=== PATIENT | female | born 1980 | race Two or more races ===

== ENCOUNTER 2016-05-16 07:56 | Emergency (ER) | payer OTHER ==
[2016-05-16 08:07] VITALS: BP 120/64; PULSE 76; TEMP 97; BMI 23.4
[2016-05-16] MEDS ORDERED: NAPROXEN 500 MG TABLET (FP) PO ONE (08:10)
[2016-05-16] MEDS ORDERED: diazePAM 5 MG TABLET PO ONE (08:10)
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
[2016-05-16] MEDS ORDERED: NAPROXEN 500 MG TABLET (FP) ONE (08:15)
[2016-05-16] MEDS ORDERED: diazePAM 5 MG TABLET ONE (08:16)
== END 2016-05-16 09:31 | disposition home or self-care (01) ==
LOC: JER 07:56
DX: M54.5 Low back pain (principal); V43.52XA Car driver injured in collision with other type car in traffic accident, initial encounter; Y93.89 Activity, other specified; Y92.410 Unspecified street and highway as the place of occurrence of the external cause; Y99.0 Civilian activity done for income or pay
CPT/HCPCS: 99281-25

== ENCOUNTER 2016-07-04 16:21 | Emergency (ER) | payer OTHER ==
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
[2016-07-04 16:30] VITALS: BP 111/79; PULSE 93; TEMP 97.8; BMI 23.4
[2016-07-04 17:53] LABS: URINE APPEARANCE CLEAR; URINE BILIRUBIN NEGATIVE (NEGATIVE); URINE BLOOD NEGATIVE (NEGATIVE); URINE COLOR YELLOW; URINE GLUCOSE (UA) NEGATIVE (NEGATIVE); URINE KETONE TRACE (NEGATIVE); URINE LEUK ESTERASE NEGATIVE (NEGATIVE); URINE NITRITE NEGATIVE (NEGATIVE); URINE UROBILINOGEN NEGATIVE E.U./dl (0.2-1.0)
[2016-07-04 18:00] LABS: URINE PROTEIN 1+ (NEGATIVE)
[2016-07-04 18:01] LABS: URINE BACTERIA RARE /hpf (NONE SEEN); URINE MUCUS MANY; URINE RBC 5 /hpf (0-3); URINE WBC 2 /hpf (3-5)
[2016-07-04] MEDS ORDERED: KETOROLAC TROMETHAMINE 60 MG/2 ML VIAL IM ONE (18:17)
--- NOTE | 2016-07-04 18:20 | PDOC ---
History of Present Illness - General Chief Complaint: Migraine Headache Stated Complaint: MIGRAIN HEADACHE Time Seen by Provider: 07/04/16 16:24 History Source: Patient Exam Limitations: No Limitations - History of Present Illness Initial Comments: 07/04/16 18:15 Patient is here with complaints of right-sided headache pain. was diagnosed with migraine some years ago, but has not seen her migraine doctor for over a year. generally uses ibuprofen for pain relief but this has not resolved this pain. Denies fever, denies visual changes although has photophobia. No nausea or vomiting, no neurologic changes or weakness. is a before school and pain onset was approximately 3 days ago it is a wraparound type headache primarily on the right side. Severity: Yes: moderate Associated Symptoms: reports: fatigue, muscle spasms. denies: fever/chills, insomnia, loss of consciousness, nausea/vomiting, numbness in legs/feet Past History - Travel Traveled outside of the country in the last 30 days: No Close contact w/someone who was outside of country & ill: No - Past Medical History Allergies/Adverse Reactions: Allergies Allergy/AdvReac Type Severity Reaction Status Date / Time No Known Allergies Allergy Verified 07/04/16 16:25 Home Medications: Ambulatory Orders Cyclobenzaprine HCl [Flexeril 10 mg] 10 mg PO BID PRN #14 tablet MDD 3 07/04/16 Suicide Attempt (Hx): No Seizures: Yes (childhood epilepsy) - Surgical History Abdominal Surgery: Yes (tummy tuck) Cholecystectomy: Yes - Psycho/Social/Smoking Cessation Hx Anxiety: No Suicidal Ideation: No Smoking Status: No Smoking History: Never smoked Have you smoked in the past 12 months: No Number of Cigarettes Smoked Daily: 0 Hx Alcohol Use: No Drug/Substance Use Hx: No Substance Use Type: None Neuro Specific PMHX - Complaint Specific PMHX Migraine: Yes Review of Systems - Review of Systems Able to Perform ROS?: Yes Is the patient limited Turkish proficient: Yes Constitutional: Yes: Symptoms Reported, See HPI, Loss of Appetite, Malaise, Weakness. No: Fever HEENTM: Yes: See HPI. No: Symptoms Reported, Eye Pain, Blurred Vision Respiratory: No: Symptoms reported Cardiac (ROS): No: Symptoms Reported Musculoskeletal: Yes: Symptoms Reported, See HPI, Neck Pain Integumentary: No: Symptoms Reported Neurological: Yes: Symptoms reported, See HPI, Headache. No: Numbness, Paresthesia, Tingling, Unsteady Gait All Other Systems: Reviewed and Negative *Physical Exam - Vital Signs Last Vital Signs Temp Pulse Resp BP Pulse Ox 97.8 F 93 H 18 111/79 100 07/04/16 16:26 07/04/16 16:26 07/04/16 16:26 07/04/16 16:26 07/04/16 16:26 - Physical Exam General Appearance: Yes: Nourished, Appropriately Dressed, Apparent Distress, Mild Distress, Moderate Distress HEENT: positive: NICHELLE, Normal ENT Inspection, TMs Normal, Pharynx Normal. negative: Nasal Congestion Neck: positive: Tender, Supple. negative: Lymphadenopathy (R), Lymphadenopathy (L) Respiratory/Chest: positive: Lungs Clear, Normal Breath Sounds Gastrointestinal/Abdominal: positive: Soft. negative: Normal Bowel Sounds, Tender Musculoskeletal: positive: Muscle Spasm (palpable spasm along the sternocleidomastoid muscles of the right side of neck, with reproduced tenderness and pain along scalp with pressure at occiput. Patient also has upper trapezius pain and mild spasm palpable.) Extremity: positive: Normal Capillary Refill, Normal Inspection, Normal Range of Motion Integumentary: positive: Normal Color, Dry, Warm Neurologic: positive: musculoskeletal physiotherapist II-XII NML intact, Fully Oriented, Alert, Normal Mood/ Affect, Normal Response, Motor Strength 5/5 ED Treatment Course - ADDITIONAL ORDERS Additional order review: Laboratory Results 07/04/16 17:40 Urine Color Yellow Urine Appearance Clear Urine pH 5.0 Ur Specific [place] 1.029 Urine Protein 1+ H Urine Glucose (UA) Negative Urine Ketones Trace H Urine Blood Negative Urine Nitrite Negative Urine Bilirubin Negative Urine Urobilinogen Negative Ur Leukocyte Esterase Negative Urine HCG, Qual Negative Progress Note - Progress Note Progress Note: Tension headache, pain is reproduced with palpation of the sternocleidomastoid on the right side with his insertions at occiput with tenderness at the upper trapezius musculature with spasm palpated. Will treat with NSAIDs and cyclobenzaprine, have patient follow-up with her PMD for possible physical therapy as needed *DC/Admit/Observation/Transfer Diagnosis at time of Disposition: Tension headache - Discharge Dispostion Disposition: HOME Condition at time of disposition: Stable Admit: No - Patient Instructions Printed Discharge Instructions: DI for Hormonal and Tension Headaches Additional Instructions: Rest, no heavy lifting or exercise until pain is resolved Hot soaks to neck and low back as often as possible/hot showers or Jacuzzis No massage or therapy until spasm is gone Continue ibuprofen 2-200 mg tablets every 6 hours for the next 3 days then as needed for pain and swelling Cyclobenzaprine 1-10mg every 8 hours as needed for spasm If not significant improvement within 24 hours with medication and rest regime, followup with private physician for change in medications and /or therapy. - Post Discharge Activity Work/School Note: Back to Work
[2016-07-04] MEDS ORDERED: KETOROLAC TROMETHAMINE 30 MG/1 ML VIAL ONE (18:24)
== END 2016-07-04 18:31 | disposition home or self-care (01) ==
LOC: JER 16:21 → JERFT 16:21
PROC: 3E0233Z Introduction of Anti-inflammatory into Muscle, Percutaneous Approach (ICD-10-PCS; principal; 2016-07-04)
DX: G44.209 Tension-type headache, unspecified, not intractable (principal)
CPT/HCPCS: 81003; 81015; 84703; 99281-25

== ENCOUNTER 2016-07-06 07:17 | Emergency (ER) | payer OTHER ==
[2016-07-06 07:31] VITALS: BMI 23.6
--- NOTE | 2016-07-06 08:18 | PDOC ---
[id number] No Limitations - History of Present Illness Initial Comments: 07/06/16 09:09 The patient is a 35 year old female with no significant past medical history who presents to the ED with complaints of a headache for 3 days. The patient was recently seen in the ED 2 days ago for similar symptoms and notes her symptoms have not gotten better. She reports a diffuse frontal headache radiating to the back of her head with associated loss of vision. Patient denies a history of vision problems in the past. Patient also reports nausea, generalized weakness and staying in bed all day secondary to head pain. Patient states she took motrin at home with no relief. Patient denies getting a head CT in the past. Patient denies vomiting or abdominal pain. Patient denies chest pain or shortness of breath. Patient denies any other symptoms in the past. <Galileo Clemons - Last Filed: 07/06/16 11:42> <Bria Amador - Last Filed: 07/10/16 07:54> - General Chief Complaint: Headache Stated Complaint: HEAD ACHE/ NAUSAU Time Seen by Provider: 07/06/16 07:58 Past History <Galileo Clemons - Last Filed: 07/06/16 11:42> - Past Medical History Suicide Attempt (Hx): No Seizures: Yes (childhood epilepsy) Other medical history: migraines - Surgical History Abdominal Surgery: Yes (johnny jhaveri) Cholecystectomy: Yes - Psycho/Social/Smoking Cessation Hx Anxiety: No Suicidal Ideation: No Smoking Status: No Smoking History: Never smoked Have you smoked in the past 12 months: No Number of Cigarettes Smoked Daily: 0 Information on smoking cessation initiated: No Hx Alcohol Use: No Drug/Substance Use Hx: No Substance Use Type: None <Bria Amador - Last Filed: 07/10/16 07:54> - Past Medical History Allergies/Adverse Reactions: Allergies Allergy/AdvReac Type Severity Reaction Status Date / Time No Known Allergies Allergy Verified 07/06/16 07:25 Home Medications: Ambulatory Orders Cyclobenzaprine HCl [Flexeril 10 mg] 10 mg PO BID PRN #14 tablet MDD 3 07/04/16 Review of Systems - Review of Systems Able to Perform ROS?: Yes Comments:: 07/06/16 09:09 GENERAL/CONSTITUTIONAL: No fever or chills. No weakness. HEAD, EYES, EARS, NOSE AND THROAT: No ear pain or discharge. No sore throat. CARDIOVASCULAR: No chest pain or shortness of breath. RESPIRATORY: No cough, wheezing, or hemoptysis. GASTROINTESTINAL: No nausea, vomiting, diarrhea or constipation. GENITOURINARY: No dysuria, frequency, or change in urination. MUSCULOSKELETAL: No joint or muscle swelling or pain. No neck or back pain. SKIN: No rash NEUROLOGIC: + headache, vision changes. No vertigo, loss of consciousness, or change in strength/sensation. ENDOCRINE: No increased thirst. No abnormal weight change. HEMATOLOGIC/LYMPHATIC: No anemia, easy bleeding, or history of blood clots. ALLERGIC/IMMUNOLOGIC: No hives or skin allergy. All Other Systems: Reviewed and Negative <Galileo Clemons - Last Filed: 07/06/16 11:42> *Physical Exam - Vital Signs Last Vital Signs Temp Pulse Resp BP Pulse Ox 97.9 F 82 18 113/74 100 07/06/16 07:27 07/06/16 07:27 07/06/16 07:27 07/06/16 07:27 07/06/16 07:27 - Physical Exam Comments: 07/06/16 09:10 GENERAL:+ uncomfortable appearing. Awake, alert, and fully oriented HEAD: No signs of trauma EYES: PERRLA, EOMI, sclera anicteric, conjunctiva clear ENT: Auricles normal inspection, hearing grossly normal, nares patent, oropharynx clear without exudates. Moist mucosa NECK: Normal ROM, supple, no lymphadenopathy, JVD, or masses LUNGS: Breath sounds equal, clear to auscultation bilaterally. No wheezes, and no crackles HEART: Regular rate and rhythm, normal S1 and S2, no murmurs, rubs or gallops ABDOMEN: Soft, nontender, normoactive bowel sounds. No guarding, no rebound. No masses EXTREMITIES: Normal range of motion, no edema. No clubbing or cyanosis. No cords, erythema, or tenderness NEUROLOGICAL: Cranial nerves II through XII grossly intact. Normal speech, normal gait SKIN: Warm, Dry, normal turgor, no rashes or lesions noted. <Galileo Clemons - Last Filed: 07/06/16 11:42> - Vital Signs Last Vital Signs Temp Pulse Resp BP Pulse Ox 97.9 F 82 18 113/74 100 07/06/16 07:27 07/06/16 07:27 07/06/16 07:27 07/06/16 07:27 07/06/16 07:27 <Bria Amaodr - Last Filed: 07/10/16 07:54> ED Treatment Course - LABORATORY CBC & Chemistry Diagram: 07/06/16 09:36 07/06/16 09:36 - RADIOLOGY Radiograph Interpretation: 07/06/16 11:42 CT/HEAD CT WITHOUT CONTRAST Impression: no evidence of acute intracranial hemorrhage, edema, midline shift, mass effect, or skull fracture. No CT evidence of acute territorial infarction. Reported by: Jeremiah De La Paz MD <Galileo Clemons - Last Filed: 07/06/16 11:42> - LABORATORY CBC & Chemistry Diagram: 07/06/16 09:36 07/06/16 09:36 <Bria Amador - Last Filed: 07/10/16 07:54> Medical Decision Making - Medical Decision Making 07/06/16 11:47 Pt reports some improvement, but headache is not completely resolved. CTH no acute findings. Will give decadron for status migraine. 07/06/16 12:57 Pt states her pain is relieved, feeling much better. Neurologically intact. Stable for DC home. <Bria Amador - Last Filed: 07/10/16 07:54> *DC/Admit/Observation/Transfer - Attestations Scribe Attestion: 07/06/16 09:10 Documentation prepared by Galileo Clemons, acting as medical device sales representative for Bria Amador MD <Galileo Clemons - Last Filed: 07/06/16 11:42> - Discharge Dispostion Admit: No <Bria Amador - Last Filed: 07/10/16 07:54> Diagnosis at time of Disposition: Headache Qualifiers: Headache type: unspecified Headache chronicity pattern: unspecified pattern Intractability: not intractable Qualified Code(s): R51 - Headache - Discharge Dispostion Disposition: HOME Condition at time of disposition: Improved - Referrals Referrals: STAFF,NOT ON [Primary Care Provider] - - Patient Instructions Printed Discharge Instructions: DI for Migraine
[2016-07-06] MEDS ORDERED: SODIUM CHLORIDE 1,000 ML IV STA (09:03)
[2016-07-06] MEDS ORDERED: KETOROLAC TROMETHAMINE 30 MG/1 ML VIAL IVPUSH ONE (09:03)
[2016-07-06] MEDS ORDERED: METOCLOPRAMIDE HCL INJECTION 10 MG/2 ML VIAL IVPB ONE (09:03)
[2016-07-06] MEDS ORDERED: METOCLOPRAMIDE HCL INJECTION 10 MG/2 ML VIAL ONE (09:18)
[2016-07-06] MEDS ORDERED: KETOROLAC TROMETHAMINE 30 MG/1 ML VIAL ONE (09:19)
[2016-07-06 09:43] LABS: BASOPHIL 1.3 % (0-2.0); EOSINOPHIL 2.2 % (0-4.5); MCHC 32.7 g/dl (32.0-36.0); MEAN CELL VOLUME 85.7 fl (80-96); MEAN PLT VOLUME 8.4 fl (7.5-11.1); NEUTROPHILS 65.7 % (42.8-82.8); PLATELET COUNT 246 K/MM3 (134-434); RDW 16.7 % (11.6-15.6); WHITE BLOOD COUNT 5.3 K/mm3 (4.0-10.0)
[2016-07-06 10:19] LABS: ALBUMIN 4.2 g/dl (3.4-5.0); ANION GAP 9 (8-16); BILIRUBIN,TOTAL 0.4 mg/dL (0.2-1.0); CALCIUM 8.7 mg/dL (8.5-10.1); CO2 27 mmol/L (21-32); CREATININE 0.7 mg/dL (0.55-1.02); GLUCOSE,RANDOM 79 mg/dL (74-106); SGPT/ALT 18 U/L (12-78); TOT PROT 7.8 g/dl (6.4-8.2)
[2016-07-06 10:20] LABS: ALK PHOS 77 U/L (45-117)
[2016-07-06 10:26] LABS: SGOT/AST 16 U/L (15-37)
[2016-07-06] MEDS ORDERED: DEXAMETHASONE SOD PHOSPHATE 10 MG/1 ML VIAL IVPB ONE (11:47)
[2016-07-06] MEDS ORDERED: DEXAMETHASONE SOD PHOSPHATE 10 MG/1 ML VIAL ONE (12:15)
[2016-07-06 13:31] VITALS: BP 112/67; PULSE 69; TEMP 97.9
== END 2016-07-06 13:31 | disposition home or self-care (01) ==
LOC: JER 07:17
PROC: 3E033GC Introduction of Other Therapeutic Substance into Peripheral Vein, Percutaneous Approach (ICD-10-PCS; principal; 2016-07-06)
PROC: 3E0333Z Introduction of Anti-inflammatory into Peripheral Vein, Percutaneous Approach (ICD-10-PCS; 2016-07-06)
PROC: 3E0337Z Introduction of Electrolytic and Water Balance Substance into Peripheral Vein, Percutaneous Approach (ICD-10-PCS; 2016-07-06)
DX: R51 Headache (principal)
CPT/HCPCS: 36415; 70450-TC; 80053; 84703; 85025; 99282-25

== ENCOUNTER 2016-10-03 13:40 | Emergency (ER) | payer OTHER ==
[2016-10-03 14:43] VITALS: BMI 25.5
--- NOTE | 2016-10-03 15:09 | PDOC ---
History of Present Illness - General History Source: Patient Exam Limitations: No Limitations - History of Present Illness Initial Comments: CHIEF COMPLAINT: 36 y/o afebrile female with PMH epilepsy (last episode 20 years ago) c/o right sided head pain x 2 weeks. HISTORY OF PRESENT ILLNESS: The patient also admits to blurred, painful vision in right eye, along with seeing spots in right eye for the past 1 week as well. She states the eye pain is intermittent and lasts 3-4 minutes at a time. She also admits to nausea and dizziness that is exacerbated by sunlight. THe patient denies head trauma, neck pain, f/c, v/d, CP, SOB, abd pain, back pain. Vital signs on arrival are within normal limits. REVIEW OF SYSTEMS: GENERAL/CONSTITUTIONAL: No fever/chills. No weakness. No weight change. HEAD, EYES, EARS, NOSE AND THROAT: +blurry, painful vision in right eye and seeing spots. No ear pain or discharge. No sore throat. CARDIOVASCULAR: No chest pain or shortness of breath. RESPIRATORY: No cough, wheezing, or hemoptysis. GASTROINTESTINAL: +nausea. No abd pain, vomiting, diarrhea. GENITOURINARY: No dysuria, frequency, or change in urination. MUSCULOSKELETAL: No joint or muscle swelling or pain. No neck or back pain. SKIN: No rash or easy bruising. NEUROLOGIC: +right sided head pain. +dizziness. No headache, vertigo, loss of consciousness, or loss of sensation. PHYSICAL EXAM: GENERAL: The patient is awake, alert, and fully oriented, in no acute distress. HEAD: Normal with no signs of trauma. No hematomas. ENT: Pupils equal, round and reactive to light, extraocular movements intact, sclera anicteric, conjunctiva clear. Neck supple. LUNGS: Clear to auscultation bilaterally. Normal excursion. No respiratory distress or use of accessory muscles. CV: RRR, S1/S2, no MRG. Cap refill < 2 sec. ABDOMEN: Soft, non-distended, non-tender even to deep palpation, no hepatomegaly or splenomegaly, no masses. EXTREMITIES: Normal range of motion, no edema. NEUROLOGICAL: Normal speech, normal gait. CN II-XII grossly intact. PSYCH: Normal mood, normal affect. SKIN: Warm, dry, normal turgor, no rashes or lesions noted. <Wohltman,Mago - Last Filed: 10/03/16 18:58> <Marlena Jones - Last Filed: 10/03/16 19:50> - General Chief Complaint: Pain Stated Complaint: RT SIDE HEAD PAIN Time Seen by Provider: 10/03/16 15:08 Past History - Past Medical History Suicide Attempt (Hx): No Seizures: Yes (childhood epilepsy) - Surgical History Abdominal Surgery: Yes (tummy tuck) Cholecystectomy: Yes - Psycho/Social/Smoking Cessation Hx Anxiety: No Suicidal Ideation: No Smoking Status: No Smoking History: Never smoked Have you smoked in the past 12 months: No Number of Cigarettes Smoked Daily: 0 Hx Alcohol Use: No Drug/Substance Use Hx: No Substance Use Type: None <Mago Mcgovern - Last Filed: 10/03/16 18:58> <Marlena Jones - Last Filed: 10/03/16 19:50> - Past Medical History Allergies/Adverse Reactions: Allergies Allergy/AdvReac Type Severity Reaction Status Date / Time No Known Allergies Allergy Verified 10/03/16 13:50 Home Medications: Ambulatory Orders NK [No Known Home Medication] 10/03/16 *Physical Exam - Vital Signs Last Vital Signs Temp Pulse Resp BP Pulse Ox 98.5 F 73 20 115/72 100 10/03/16 13:48 10/03/16 13:48 10/03/16 13:48 10/03/16 13:48 10/03/16 13:48 <Mago Mcgovern - Last Filed: 10/03/16 18:58> - Vital Signs Last Vital Signs Temp Pulse Resp BP Pulse Ox 98.6 F 68 17 127/73 98 10/03/16 18:08 10/03/16 18:08 10/03/16 18:08 10/03/16 18:08 10/03/16 18:08 <Marlena Jones - Last Filed: 10/03/16 19:50> ED Treatment Course - LABORATORY CBC & Chemistry Diagram: 10/03/16 16:40 10/03/16 16:40 <Mago Mcgovern - Last Filed: 10/03/16 18:58> - LABORATORY CBC & Chemistry Diagram: 10/03/16 16:40 10/03/16 18:00 - ADDITIONAL ORDERS Additional order review: Laboratory Results 10/03/16 10/03/16 16:40 16:31 Sodium Cancelled Potassium Cancelled Chloride Cancelled Carbon Dioxide Cancelled Anion Gap Cancelled BUN Cancelled Creatinine Cancelled Creat Clearance w eGFR Cancelled Random Glucose Cancelled Calcium Cancelled Total Bilirubin Cancelled AST Cancelled ALT Cancelled Alkaline Phosphatase Cancelled Total Protein Cancelled Albumin Cancelled Urine HCG, Qual Negative 10/03/16 16:40 RBC 4.63 MCV 82.6 MCHC 32.5 RDW 17.1 H MPV 8.5 Neutrophils % 61.3 Lymphocytes % 27.0 D Monocytes % 8.8 Eosinophils % 1.9 Basophils % 1.0 - RADIOLOGY Radiology Studies Ordered: Category Date Time Status HEAD CT WITHOUT CONTRAST [CT] Stat CT Scan 10/03/16 16:21 Completed - Medications Given in the ED: ED Medications Discontinued Medications Generic Name Dose Route Start Last Admin Trade Name Richmondq PRN Reason Stop Dose Admin Ketorolac Tromethamine 30 mg 10/03/16 18:13 10/03/16 18:23 Toradol Injection - IVPUSH 10/03/16 18:14 30 mg ONCE ONE Administration Metoclopramide HCl 10 mg 10/03/16 18:12 10/03/16 18:23 Reglan Injection - IVPB 10/03/16 18:13 10 mg ONCE ONE Administration Sodium Chloride 1,000 ml 10/03/16 18:12 10/03/16 18:23 Normal Saline - IV 10/03/16 18:13 1,000 ml ONCE ONE Administration <Marlena Jones - Last Filed: 10/03/16 19:50> Medical Decision Making - Medical Decision Making A/P: 36 y/o female with right sided head pain, blurry/painful vision, nausea and dizziness for 2 weeks. The patient will be sent to the main ER for higher level of care. <Mago Mcgovern - Last Filed: 10/03/16 18:58> *DC/Admit/Observation/Transfer <Mago Mcgovern - Last Filed: 10/03/16 18:58> - Discharge Dispostion Admit: No <Marlena Jones - Last Filed: 10/03/16 19:50> Diagnosis at time of Disposition: Blurry vision, right eye, Intractable persistent migraine aura - Discharge Dispostion Disposition: HOME Condition at time of disposition: Stable - Referrals Referrals: Arnol Edgar MD [Staff Physician] - - Patient Instructions Printed Discharge Instructions: Migraine -- Adult Additional Instructions: take ibuprofen 600 mg every 8 hours as needed for pain. return for vomiting, fever worsening pain or any concerns.follow up with nuerology, see referral number for Dr. Edgar. Print Language: AUSTRIAN - Post Discharge Activity Work/School Note: Back to Work
[2016-10-03 16:51] LABS: EOSINOPHIL 1.9 % (0-4.5); MCH 26.8 pg (25.7-33.7); MCHC 32.5 g/dl (32.0-36.0); MEAN CELL VOLUME 82.6 fl (80-96); MEAN PLT VOLUME 8.5 fl (7.5-11.1); NEUTROPHILS 61.3 % (42.8-82.8); PLATELET COUNT 288 K/MM3 (134-434); RDW 17.1 % (11.6-15.6); WHITE BLOOD COUNT 5.9 K/mm3 (4.0-10.0)
[2016-10-03] MEDS ORDERED: METOCLOPRAMIDE HCL INJECTION 10 MG/2 ML VIAL IVPB ONE (18:12)
[2016-10-03] MEDS ORDERED: SODIUM CHLORIDE 0.9% 1000 ML INFUS.BAG IV ONE (18:12)
[2016-10-03] MEDS ORDERED: KETOROLAC TROMETHAMINE 30 MG/1 ML VIAL IVPUSH ONE (18:13)
[2016-10-03] MEDS ORDERED: METOCLOPRAMIDE HCL INJECTION 10 MG/2 ML VIAL ONE (18:16)
[2016-10-03] MEDS ORDERED: KETOROLAC TROMETHAMINE 30 MG/1 ML VIAL ONE (18:16)
--- NOTE | 2016-10-03 18:46 | PDOC ---
*Physical Exam - Vital Signs Last Vital Signs Temp Pulse Resp BP Pulse Ox 98.6 F 68 17 127/73 98 10/03/16 18:08 10/03/16 18:08 10/03/16 18:08 10/03/16 18:08 10/03/16 18:08 - Physical Exam General Appearance: Yes: Nourished, Appropriately Dressed HEENT: positive: NICHELLE, Normal ENT Inspection, Normal Voice Neck: positive: Trachea midline, Normal Thyroid Respiratory/Chest: positive: Lungs Clear, Normal Breath Sounds Cardiovascular: positive: Regular Rhythm, Regular Rate, S1, S2. negative: Edema , JVD Musculoskeletal: positive: Normal Inspection. 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 NML intact, Fully Oriented, Alert, Normal Mood/ Affect, Normal Response (no temporal artery tenderness.), Motor Strength 5/5 ED Treatment Course - LABORATORY CBC & Chemistry Diagram: 10/03/16 16:40 10/03/16 18:00 - ADDITIONAL ORDERS Additional order review: Laboratory Results 10/03/16 10/03/16 16:40 16:31 Sodium Cancelled Potassium Cancelled Chloride Cancelled Carbon Dioxide Cancelled Anion Gap Cancelled BUN Cancelled Creatinine Cancelled Creat Clearance w eGFR Cancelled Random Glucose Cancelled Calcium Cancelled Total Bilirubin Cancelled AST Cancelled ALT Cancelled Alkaline Phosphatase Cancelled Total Protein Cancelled Albumin Cancelled Urine HCG, Qual Negative 10/03/16 16:40 RBC 4.63 MCV 82.6 MCHC 32.5 RDW 17.1 H MPV 8.5 Neutrophils % 61.3 Lymphocytes % 27.0 D Monocytes % 8.8 Eosinophils % 1.9 Basophils % 1.0 - RADIOLOGY Radiology Studies Ordered: Category Date Time Status HEAD CT WITHOUT CONTRAST [CT] Stat CT Scan 10/03/16 16:21 Completed - Medications Given in the ED: ED Medications Discontinued Medications Generic Name Dose Route Start Last Admin Trade Name Freq PRN Reason Stop Dose Admin Ketorolac Tromethamine 30 mg 10/03/16 18:13 10/03/16 18:23 Toradol Injection - IVPUSH 10/03/16 18:14 30 mg ONCE ONE Administration Metoclopramide HCl 10 mg 10/03/16 18:12 10/03/16 18:23 Reglan Injection - IVPB 10/03/16 18:13 10 mg ONCE ONE Administration Sodium Chloride 1,000 ml 10/03/16 18:12 10/03/16 18:23 Normal Saline - IV 10/03/16 18:13 1,000 ml ONCE ONE Administration Medical Decision Making - Medical Decision Making 10/03/16 18:40 36 yo F h/o migraines, here today with c/o right sided headache, periorbital pain. off and on for one week. has had similar pain in the past, but on the other side.did have some nausea, no vomiting. no mod factors. did not take any medicine prior to arrival. . does have photophobia, no head trauma. no fever. no new weakness numbness or tingling. on exam awake alert, no temp art tenderness. cardiac and lung exam normal. abd soft. nuero exam CN intact, 5/5 all four ext. speech clear. differential: likely migraine. plan labs r/o anemia electrolyte abnormality. hydrate pain control 10/03/16 19:49 pt feeling better labs and ct normal. will dc home. *DC/Admit/Observation/Transfer Diagnosis at time of Disposition: Blurry vision, right eye - Discharge Dispostion Condition at time of disposition: Stable - Referrals Referrals: Arnol Edgar MD [Staff Physician] - - Patient Instructions Printed Discharge Instructions: Migraine -- Adult Additional Instructions: take ibuprofen 600 mg every 8 hours as needed for pain. return for vomiting, fever worsening pain or any concerns.follow up with nuerology, see referral number for Dr. Edgar. Print Language: SWEDISH - Post Discharge Activity
[2016-10-03 18:49] LABS: ERYTHROCYTE SEDIMENTATION RATE 15 mm/hr (0-20)
[2016-10-03 19:27] LABS: ALBUMIN 4.2 g/dl (3.4-5.0); ALK PHOS 80 U/L (45-117); ANION GAP 11 (8-16); BILIRUBIN,TOTAL 0.6 mg/dL (0.2-1.0); CALCIUM 8.8 mg/dL (8.5-10.1); CO2 23 mmol/L (21-32); COCKROFT - GAULT 134.9375; CREATININE 0.7 mg/dL (0.55-1.02); GLUCOSE,RANDOM 73 mg/dL (74-106); SGOT/AST 19 U/L (15-37); SGPT/ALT 18 U/L (12-78); TOT PROT 7.9 g/dl (6.4-8.2)
[2016-10-03 20:15] LABS: PLATELET ESTIMATE ADEQUATE (NORMAL)
[2016-10-03 20:16] VITALS: BP 108/78; PULSE 86; TEMP 98.3
== END 2016-10-03 20:16 | disposition home or self-care (01) ==
LOC: JER 13:40
PROC: 3E0333Z Introduction of Anti-inflammatory into Peripheral Vein, Percutaneous Approach (ICD-10-PCS; principal; 2016-10-03)
PROC: 3E033GC Introduction of Other Therapeutic Substance into Peripheral Vein, Percutaneous Approach (ICD-10-PCS; 2016-10-03)
DX: G43.119 Migraine with aura, intractable, without status migrainosus (principal); Z86.69 Personal history of other diseases of the nervous system and sense organs
CPT/HCPCS: 36415; 70450-TC; 80053; 84703; 85025; 85651; 99282-25

== ENCOUNTER 2017-01-03 03:34 | Emergency (ER) | payer OTHER ==
[2017-01-03] MEDS ORDERED: KETOROLAC TROMETHAMINE 30 MG/1 ML VIAL IVPUSH ONE (04:05)
[2017-01-03] MEDS ORDERED: SODIUM CHLORIDE 0.9% 1000 ML INFUS.BAG IV ONE (04:06)
[2017-01-03] MEDS ORDERED: METOCLOPRAMIDE HCL INJECTION 10 MG/2 ML VIAL IVPUSH ONE (04:06)
[2017-01-03 04:13] VITALS: BP 115/77; PULSE 81; TEMP 97.7; BMI 23.6
[2017-01-03] MEDS ORDERED: METOCLOPRAMIDE HCL INJECTION 10 MG/2 ML VIAL ONE (04:13)
[2017-01-03] MEDS ORDERED: KETOROLAC TROMETHAMINE 30 MG/1 ML VIAL ONE (04:14)
--- NOTE | 2017-01-03 04:27 | PDOC ---
History of Present Illness - General Chief Complaint: Palpitations Stated Complaint: ALLERGIC REACTION,HEART PALPITATIONS Time Seen by Provider: 01/03/17 03:47 - History of Present Illness Initial Comments: 01/03/17 04:27 CHIEF COMPLAINT: headache, palpitations HISTORY OF PRESENT ILLNESS: 36 yo F with hx of recurrent headaches presents to ED with headache and palpitations. Patient reports she had a headache and took a Percocet, but then began feeling palpitations and "sharp pain" to her chest. She denies any shortness of breath, blurry vision, weakness, difficulty speaking or swallowing, and friend at bedside reports she is acting at baseline. No recent travel or sick contacts. PAST MEDICAL HISTORY: Denies past medical history FAMILY HISTORY: Denies SOCIAL HISTORY:Denies tobacco, alcohol, illicit drug use. SURGICAL HISTORY: Denies ALLERGIES: No known drug allergies REVIEW OF SYSTEMS General/Constitutional: Denies fever or chills. Denies weakness, weight change. HEENT: Denies change in vision. Denies ear pain or discharge. Denies sore throat. Cardiovascular: Denies chest pain or shortness of breath. Respiratory: Denies cough, wheezing, or hemoptysis. Gastrointestinal: Denies nausea, vomiting, diarrhea or constipation. Denies rectal bleeding. Genitourinary: Denies dysuria, frequency, or change in urination. Musculoskeletal: Denies joint or muscle swelling or pain. Denies neck or back pain. Skin and breasts: Denies rash or easy bruising. Neurologic: Headache. Denies vertigo, loss of consciousness, or loss of sensation. PHYSICAL EXAM General Appearance: Well-appearing, appropriately dressed. No apparent distress. HEENT: Photophobia. EOMI, PERRLA. No scleral icterus. Respiratory/Chest: Lungs CTAB. Cardiovascular: RRR. S1, S2. Gastrointestinal/Abdominal: Normal bowel sounds. Abdomen soft, non-distended. No tenderness or rebound tenderness. No organomegaly, pulsatile mass, guarding , hernia, hepatomegaly, splenomegaly. Musculoskeletal/Extremities: Normal inspection. FROM of all extremities, normal capillary refill. Pelvis Stable. No CVA tenderness. No tenderness to extremities, pedal edema, swelling, erythema or deformity. Integumentary: Appropriate color, dry, warm. 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 Fully oriented, alert. Appropriate mood/affect. Motor strength 5/5. No appreciable EOM palsy, facial droop or sensory deficit. A&Ox3, follow commands, respond appropriately CN2-12: conjugate gaze, pupil round, equal and reactive to light. Visual field full to confrontation. EOMI without nystagmus, pursuit is smooth without saccade. Facial sensation and muscle activation intact bilaterally. Hearing intact bilaterally. Palate elevate symmetrically. Shoulder shrug and neck turn full strength. Tongue protrude midline. Motor: UE and LE strength 5/5 throughout bilaterally. Muscle tone and bulk normal. Past History - Past Medical History Allergies/Adverse Reactions: Allergies Allergy/AdvReac Type Severity Reaction Status Date / Time No Known Allergies Allergy Verified 01/03/17 03:50 Home Medications: Ambulatory Orders NK [No Known Home Medication] 10/03/16 Suicide Attempt (Hx): No Seizures: Yes (childhood epilepsy) - Surgical History Abdominal Surgery: Yes (tummy tuck) Cholecystectomy: Yes - Psycho/Social/Smoking Cessation Hx Anxiety: No Suicidal Ideation: No Smoking Status: No Smoking History: Never smoked Have you smoked in the past 12 months: No Number of Cigarettes Smoked Daily: 0 Information on smoking cessation initiated: No Hx Alcohol Use: No Drug/Substance Use Hx: No Substance Use Type: None Neuro Specific PMHX - Complaint Specific PMHX Migraine: Yes *Physical Exam - Vital Signs Last Vital Signs Temp Pulse Resp BP Pulse Ox 97.7 F 81 14 115/77 100 01/03/17 03:50 01/03/17 03:50 01/03/17 03:50 01/03/17 03:50 01/03/17 03:50 Medical Decision Making - Medical Decision Making 01/03/17 05:31 36 yo F with hx of recurrent headaches presents to ED with headache and palpitations. -IVF, Toradol, Reglan, Benadryl. Patient reassessed; at this time she states she is feeling much better and no longer has a headache, palpitations, or chest pain. Advised patient to f/u with neurology for further investigation of recurrent migraines. Advised patient of signs and symptoms for return to ER; patient verbalized understanding and agrees to plan. *DC/Admit/Observation/Transfer Diagnosis at time of Disposition: Palpitations Headache Qualifiers: Headache type: unspecified Headache chronicity pattern: acute headache Intractability: not intractable Qualified Code(s): R51 - Headache - Discharge Dispostion Disposition: HOME Condition at time of disposition: Improved Admit: No - Referrals Referrals: Sandro Soliman MD [Staff Physician] - - Patient Instructions Printed Discharge Instructions: DI for Headache Additional Instructions: Please follow up with neurology this week for further investigation of your headaches. If you experience any sudden headache, blurry vision, slurred speech , weakness, difficulty walking, any change in behavior, loss of consciousness, memory loss, or any new or worsening symptoms, please return to the ER. - Post Discharge Activity Work/School Note: Back to Work
--- NOTE | 2017-01-03 04:32 | PDOC ---
*Physical Exam - Vital Signs Last Vital Signs Temp Pulse Resp BP Pulse Ox 97.7 F 81 14 115/77 100 01/03/17 03:50 01/03/17 03:50 01/03/17 03:50 01/03/17 03:50 01/03/17 03:50 Medical Decision Making - Medical Decision Making 01/03/17 04:31 agree with care from HEATHER Wheeler *DC/Admit/Observation/Transfer Diagnosis at time of Disposition: Palpitations, Headache - Referrals Referrals: Sandro Soliman MD [Staff Physician] - - Patient Instructions Printed Discharge Instructions: DI for Headache Additional Instructions: Please follow up with neurology this week for further investigation of your headaches. If you experience any sudden headache, blurry vision, slurred speech , weakness, difficulty walking, any change in behavior, loss of consciousness, memory loss, or any new or worsening symptoms, please return to the ER. - Post Discharge Activity Work/School Note: Back to Work
--- NOTE | 2017-01-03 12:17 | EKG ---
Test Reason : Blood Pressure : / mmHG Vent. Rate : 072 BPM Atrial Rate : 072 BPM P-R Int : 190 ms QRS Dur : 090 ms QT Int : 382 ms P-R-T Axes : 025 027 030 degrees QTc Int : 418 ms NORMAL SINUS RHYTHM NORMAL ECG NO PREVIOUS ECGS AVAILABLE Confirmed by TYRONE LAMAR MD ([id number]) on 01/03/2017 12:17:01 PM Referred By: Confirmed By:TYRONE LAMAR MD
== END 2017-01-03 05:41 | disposition home or self-care (01) ==
LOC: JER 03:34
PROC: 3E0333Z Introduction of Anti-inflammatory into Peripheral Vein, Percutaneous Approach (ICD-10-PCS; principal; 2017-01-03)
PROC: 3E033GC Introduction of Other Therapeutic Substance into Peripheral Vein, Percutaneous Approach (ICD-10-PCS; 2017-01-03)
PROC: 3E033GC Introduction of Other Therapeutic Substance into Peripheral Vein, Percutaneous Approach (ICD-10-PCS; 2017-01-03)
DX: R00.2 Palpitations (principal); R51 Headache
CPT/HCPCS: 84703; 93005; 93010; 99283-25

== ENCOUNTER 2017-01-11 10:48 | Emergency (ER) | payer OTHER ==
[2017-01-11 11:12] VITALS: BMI 23.7
[2017-01-11] MEDS ORDERED: KETOROLAC TROMETHAMINE 30 MG/1 ML VIAL IVPUSH ONE (12:23)
[2017-01-11] MEDS ORDERED: KETOROLAC TROMETHAMINE 30 MG/1 ML VIAL ONE (12:44)
[2017-01-11 13:05] LABS: BASOPHIL 0.8 % (0-2.0); EOSINOPHIL 0.4 % (0-4.5); MCH 27.1 pg (25.7-33.7); MCHC 32.6 g/dl (32.0-36.0); MEAN CELL VOLUME 83.3 fl (80-96); MEAN PLT VOLUME 8.4 fl (7.5-11.1); NEUTROPHILS 80.9 % (42.8-82.8); PLATELET COUNT 252 K/MM3 (134-434); RDW 17.9 % (11.6-15.6); WHITE BLOOD COUNT 9.7 K/mm3 (4.0-10.0)
[2017-01-11 13:13] LABS: ALBUMIN 4.1 g/dl (3.4-5.0); ANION GAP 8 (8-16); BILIRUBIN,TOTAL 0.6 mg/dL (0.2-1.0); CALCIUM 8.8 mg/dL (8.5-10.1); CO2 24 mmol/L (21-32); CREATININE 0.7 mg/dL (0.55-1.02); GLUCOSE,RANDOM 86 mg/dL (74-106); SGOT/AST 15 U/L (15-37); SGPT/ALT 21 U/L (12-78); TOT PROT 7.7 g/dl (6.4-8.2)
[2017-01-11 13:16] LABS: ALK PHOS 77 U/L (45-117); CPK 119 IU/L (26-192); TROPONIN I < 0.02 ng/ml (0.00-0.05)
--- NOTE | 2017-01-11 13:34 | PDOC ---
History of Present Illness - General Chief Complaint: Chest Pain Stated Complaint: CHEST PAIN Time Seen by Provider: 01/11/17 11:14 History Source: Patient Exam Limitations: No Limitations - History of Present Illness Initial Comments: 01/11/17 14:23 36-year-old female presents to the ED with complaints of intermittent chest pain worsened with movement and deep breathing the past 2 days unrelieved with Motrin. Patient denies recent injury, recent surgery, previous change in activity, or recent travel. Patient does state was seen at [facility] one week ago with no complaints of the above. Patient denies exogenous estrogen usage, smoking history, history of asthma, difficulty breathing, palpitations, or dizziness. Patient does complain of a mild right sided throbbing pressure but denies ear pain and jaw pain, visual changes,or dental pain. Presenting Symptoms: Chest Pain Timing/Duration: reports: intermittent Severity/Quality: reports: mild, aching Location: reports: substernal Chest Pain Radiation: reports: no radiation Activities at Onset: reports: exertion Prior Chest Pain/Cardiac Workup: reports: No prior chest pain Associated Symptoms: Yes: Chest Pain/pressure, Headache Past History - Travel Traveled outside of the country in the last 30 days: No Close contact w/someone who was outside of country & ill: No - Past Medical History Allergies/Adverse Reactions: Allergies Allergy/AdvReac Type Severity Reaction Status Date / Time No Known Allergies Allergy Verified 01/03/17 03:50 Home Medications: Ambulatory Orders Acetaminophen [Tylenol .Extra-Strength -] 500 mg PO Q6H PRN #24 tablet 01/11/17 Suicide Attempt (Hx): No Seizures: Yes (childhood epilepsy) - Surgical History Abdominal Surgery: Yes (tummy tuck) Cholecystectomy: Yes - Psycho/Social/Smoking Cessation Hx Anxiety: No Suicidal Ideation: No Smoking Status: No Smoking History: Never smoked Have you smoked in the past 12 months: No Number of Cigarettes Smoked Daily: 0 Information on smoking cessation initiated: No Hx Alcohol Use: No Drug/Substance Use Hx: No Substance Use Type: None Patient Lives Alone: No Lives with/in: spouse/SO Review of Systems - Review of Systems Able to Perform ROS?: Yes Constitutional: No: Symptoms Reported HEENTM: No: Symptoms Reported Respiratory: No: Symptoms reported Cardiac (ROS): Yes: Chest Pain ABD/GI: No: Symptoms Reported : No: Symptoms Reported Musculoskeletal: No: Symptoms Reported Integumentary: No: Symptoms Reported Neurological: No: Symptoms reported Endocrine: No: Symptoms Reported Hematologic/Lymphatic: No: Symptoms Reported *Physical Exam - Vital Signs Last Vital Signs Temp Pulse Resp BP Pulse Ox 98.3 F 77 18 109/67 99 01/11/17 14:46 01/11/17 14:46 01/11/17 14:46 01/11/17 14:46 01/11/17 14:46 - Physical Exam General Appearance: Yes: Nourished, Appropriately Dressed. No: Apparent Distress HEENT: negative: Pale Conjunctivae Neck: positive: Supple Respiratory/Chest: positive: Chest Tender ( midsternal), Lungs Clear, Normal Breath Sounds. negative: Respiratory Distress, Accessory Muscle Use Cardiovascular: positive: Regular Rhythm, Regular Rate. negative: Murmur Gastrointestinal/Abdominal: positive: Soft. negative: Tenderness Musculoskeletal: negative: Vertebral Tenderness Extremity: positive: Normal Capillary Refill. negative: Pedal Edema Integumentary: positive: Normal Color, Warm, Moist Neurologic: positive: Motor Strength 5/5 (ambulatory) Heart Score/ECG Review - ECG Intrepretation Rhythm: Regular Rhythm Comment:: 01/11/17 14:[address] depression or elevation - [place]: Normal ED Treatment Course - LABORATORY CBC & Chemistry Diagram: 01/11/17 12:44 01/11/17 12:44 - ADDITIONAL ORDERS Additional order review: Laboratory Results 01/11/17 01/11/17 01/11/17 12:44 12:44 12:44 D-Dimer < 200 Sodium 140 Potassium 3.7 Chloride 108 H Carbon Dioxide 24 Anion Gap 8 BUN 9 D Creatinine 0.7 Creat Clearance w eGFR > 60 Random Glucose 86 Calcium 8.8 Total Bilirubin 0.6 AST 15 D ALT 21 Alkaline Phosphatase 77 Creatine Kinase 119 Troponin I < 0.02 Total Protein 7.7 Albumin 4.1 Serum , Qual Negative 01/11/17 12:44 RBC 4.55 MCV 83.3 MCHC 32.6 RDW 17.9 H MPV 8.4 Neutrophils % 80.9 D Lymphocytes % 10.4 D Monocytes % 7.5 Eosinophils % 0.4 Basophils % 0.8 - RADIOLOGY Radiology Studies Ordered: Category Date Time Status CHEST X-RAY PORTABLE* [RAD] Stat Radiology 01/11/17 12:23 Completed - Medications Given in the ED: ED Medications Discontinued Medications Generic Name Dose Route Start Last Admin Trade Name Freq PRN Reason Stop Dose Admin Ketorolac Tromethamine 30 mg 01/11/17 12:23 01/11/17 12:47 Toradol Injection - IVPUSH 01/11/17 12:24 30 mg ONCE ONE Administration Medical Decision Making - Medical Decision Making 01/11/17 13:27 Patient with reproducible and episodic chest pain the past few days unrelieved with Motrin. Patient exam had midsternal tenderness on exam. Patient with normal vital signs are normal EKG. Patient will be ordered for labs including cardiac profile and d-dimer. Patient also ordered for Toradol IV. 01/11/17 14:28 Laboratory Tests 01/11/17 01/11/17 01/11/17 12:44 12:44 12:44 WBC 9.7 D Hgb 12.4 Hct 37.9 Plt Count 252 Neutrophils % 80.9 D D-Dimer < 200 Sodium Potassium Chloride Carbon Dioxide Anion Gap BUN Creatinine Creat Clearance w eGFR Calcium AST ALT Creatine Kinase Troponin I Serum , Qual Negative 01/11/17 12:44 WBC Hgb Hct Plt Count Neutrophils % D-Dimer Sodium 140 Potassium 3.7 Chloride 108 H Carbon Dioxide 24 Anion Gap 8 BUN 9 D Creatinine 0.7 Creat Clearance w eGFR > 60 Calcium 8.8 AST 15 D ALT 21 Creatine Kinase 119 Troponin I < 0.02 Serum , Qual patient states feeling better will discharge home with Rx for Tylenol *DC/Admit/Observation/Transfer Diagnosis at time of Disposition: Musculoskeletal chest pain - Discharge Dispostion Disposition: HOME Condition at time of disposition: Improved - Prescriptions Prescriptions: Acetaminophen [Tylenol .Extra-Strength -] 500 mg PO Q6H PRN #24 tablet PRN Reason: Pain - Patient Instructions Printed Discharge Instructions: DI for Musculoskeletal Pain Additional Instructions: take Tylenol every 6-8 hours for the next Few days to alleviate discomfort. You may also apply heating pad to the affected area. Return to ED if symptoms worsen. - Post Discharge Activity Work/School Note: Back to Work
[2017-01-11 14:47] VITALS: BP 109/67; PULSE 77; TEMP 98.3
--- NOTE | 2017-01-14 16:59 | EKG ---
Test Reason : Blood Pressure : / mmHG Vent. Rate : 075 BPM Atrial Rate : 075 BPM P-R Int : 174 ms QRS Dur : 092 ms QT Int : 392 ms P-R-T Axes : 036 042 038 degrees QTc Int : 437 ms NORMAL SINUS RHYTHM NORMAL ECG WHEN COMPARED WITH ECG OF 03-JAN-2017 03:55, NO SIGNIFICANT CHANGE WAS FOUND Confirmed by CARMEN KAPLAN MD ([id number]) on 01/14/2017 4:59:04 PM Referred By: Confirmed By:CARMEN KAPLAN MD
== END 2017-01-11 14:50 | disposition home or self-care (01) ==
LOC: JER 10:48
PROC: 3E0333Z Introduction of Anti-inflammatory into Peripheral Vein, Percutaneous Approach (ICD-10-PCS; principal; 2017-01-11)
DX: M79.1 Myalgia (principal)
CPT/HCPCS: 36415; 71010-TC; 80053; 84484; 84703; 85025; 85379; 93005; 93010; 96374; 99283-25

== ENCOUNTER 2017-01-23 09:29 | Emergency (ER) | payer OTHER ==
[2017-01-23 09:32] VITALS: TEMP 98.5; BMI 23.7
--- NOTE | 2017-01-23 09:58 | PDOC ---
History of Present Illness - General History Source: Patient Exam Limitations: No Limitations - History of Present Illness Initial Comments: 01/23/17 12:08 The patient is a 36 year old female, with a significant PMH of epilepsy (last seizure 20 ya) who presents to the emergency department with headache beginning approximately 6 months ago. The patient describes the headache as localized in the frontal region with some ache on the right temporal region. +photophobia. 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 There has been no change in the severity, quality, or location of the headache over the last few days, she reports she came to the ED because it will not go away and she needs a work note as driving exacerbates her headache. The patient reports visiting the neurologist 2 months ago for an MRI which was reportedly normal. She has not seen the neurologist since for her continued headache. She also reports seeing her PCP about 1 month ago, but notes that she was not prescribed anything or given treatment during these interactions. She also reports being prescribed Acetaminophen on her last visit to the ED for a headache, which she has taken with minimal relief. The patient has presented to the ED with a similar complaint multiple times within the past 6 months. The patient denies chest pain, shortness of breath, and dizziness. Denies focal weakness or numbness Denies fever, chills, nausea, vomit, diarrhea and constipation. Denies dysuria, frequency, urgency and hematuria. Allergies: NKA Social history: No reported cigarette, alcohol, or drug use. [facility]CP: [facility] <Ezra Champion - Last Filed: 01/23/17 12:07> <Don Horton - Last Filed: 01/23/17 13:37> - General Chief Complaint: Lightheaded Stated Complaint: DIZZINESS Time Seen by Provider: 01/23/17 09:45 Past History <Ezra Champion - Last Filed: 01/23/17 12:07> - Past Medical History Seizures: Yes (childhood epilepsy) - Surgical History Abdominal Surgery: Yes (tummy tuck) Cholecystectomy: Yes - Suicide/Smoking/Psychosocial Hx Smoking Status: No Smoking History: Never smoked Have you smoked in the past 12 months: No Number of Cigarettes Smoked Daily: 0 Hx Alcohol Use: No Drug/Substance Use Hx: No Substance Use Type: None <Don Horton - Last Filed: 01/23/17 13:37> - Past Medical History Allergies/Adverse Reactions: Allergies Allergy/AdvReac Type Severity Reaction Status Date / Time No Known Allergies Allergy Verified 01/23/17 09:32 Home Medications: Ambulatory Orders Acetaminophen [Tylenol .Extra-Strength -] 500 mg PO Q6H PRN #24 tablet 01/11/17 Review of Systems - Review of Systems Able to Perform ROS?: Yes Comments:: 01/23/17 12:08 GENERAL/CONSTITUTIONAL: No fever or chills. No weakness. HEAD, EYES, EARS, NOSE AND THROAT: No change in vision. No ear pain or discharge. No sore throat. CARDIOVASCULAR: No chest pain or shortness of breath. RESPIRATORY: No cough, wheezing, or hemoptysis. GASTROINTESTINAL: No nausea, vomiting, diarrhea or constipation. GENITOURINARY: No dysuria, frequency, or change in urination. MUSCULOSKELETAL: No joint or muscle swelling or pain. No neck or back pain. SKIN: No rash NEUROLOGIC: (+) Headache. No vertigo, loss of consciousness, or change in strength/sensation. ENDOCRINE: No increased thirst. No abnormal weight change. HEMATOLOGIC/LYMPHATIC: No anemia, easy bleeding, or history of blood clots. ALLERGIC/IMMUNOLOGIC: No hives or skin allergy. <Ezra Champion - Last Filed: 01/23/17 12:07> *Physical Exam - Vital Signs Last Vital Signs Temp Pulse Resp BP Pulse Ox 98.5 F 77 20 122/78 99 01/23/17 09:30 01/23/17 09:30 01/23/17 09:30 01/23/17 09:30 01/23/17 09:30 - Physical Exam Comments: 01/23/17 12:09 GENERAL: Awake, alert, and fully oriented, in no acute distress HEAD: No signs of trauma EYES: PERRLA, EOMI, sclera anicteric, conjunctiva clear ENT: Auricles normal inspection, hearing grossly normal, nares patent, oropharynx clear without exudates. Moist mucosa NECK: Normal ROM, supple, no lymphadenopathy, JVD, or masses LUNGS: Breath sounds equal, clear to auscultation bilaterally. No wheezes, and no crackles HEART: Regular rate and rhythm, normal S1 and S2, no murmurs, rubs or gallops ABDOMEN: Soft, nontender, normoactive bowel sounds. No guarding, no rebound. No masses EXTREMITIES: Normal range of motion, no edema. No clubbing or cyanosis. No cords, erythema, or tenderness NEUROLOGICAL: Normal speech, cranial nerves intact, negative pronator drift, 5/ 5 strength in all 4 extremities, normal sensation to light touch in all 4 extremities, normal cerebellar exam, normal gait, normal reflexes and tone SKIN: Warm, Dry, normal turgor, no rashes or lesions noted. <Ezra Champion - Last Filed: 01/23/17 12:07> - Vital Signs Last Vital Signs Temp Pulse Resp BP Pulse Ox 98.5 F 77 20 122/78 99 01/23/17 09:30 01/23/17 09:30 01/23/17 09:30 01/23/17 09:30 01/23/17 09:30 <Don Horton - Last Filed: 01/23/17 13:37> ED Treatment Course - LABORATORY CBC & Chemistry Diagram: 01/23/17 10:00 01/23/17 10:00 <Ezra Champion - Last Filed: 01/23/17 12:07> - LABORATORY CBC & Chemistry Diagram: 01/23/17 10:00 01/23/17 10:00 <Don Horton - Last Filed: 01/23/17 13:37> Medical Decision Making - Medical Decision Making 01/23/17 10:01 36yo F hx headaches p/w headache for 6 months. Pt has seen a neurologist, had a negative MRI but no diagnosis and no controller medication. HEadache does not have any red flags, has been constant, not worse in severity, not sudden onset, and without focal weakness or numbness. Vitals and exam unremarkable. DDx includes tension moncada vs migraine. Pt requests work note. -labs -UPT -reglan, tylenol, IVF -anticipate DC 01/23/17 13:31 Labs unremarkable. Urine test negative. Patient reports significant improvement in her headache. I discussed at length with the patient the importance of following up with her primary care doctor and neurology for her chronic headache. The patient promises to follow up with her neurologist within 1 week. I discussed the physical exam findings, ancillary test results and final diagnoses with the patient. I answered all of the patient's questions. The patient was satisfied with the care received and felt comfortable with the discharge plan and treatment plan. The patient will call their primary care physician within 24 hours to arrange follow-up and will return to the Emergency Department with any new, persistent or worsening symptoms. <Don Horton - Last Filed: 01/23/17 13:37> *DC/Admit/Observation/Transfer - Attestations Scribe Attestion: 01/23/17 10:20 Documentation prepared by Ezra Champion, acting as medical office scheduler for Don Horton MD. <Ezra Champion - Last Filed: 01/23/17 12:07> - Discharge Dispostion Admit: No - Attestations Physician Attestion: 01/23/17 13:33 I, Dr. Don Horton MD, attest that this document has been prepared under my direction and personally reviewed by me in its entirety. I further attest, that it accurately reflects all work, treatment, procedures and medical decision -making performed by me. <Don Horton - Last Filed: 01/23/17 13:37> Diagnosis at time of Disposition: Headache Qualifiers: Headache type: unspecified Headache chronicity pattern: unspecified pattern Intractability: not intractable Qualified Code(s): R51 - Headache - Discharge Dispostion Disposition: HOME Condition at time of disposition: Stable - Patient Instructions Additional Instructions: As discussed, please follow up with your neurologist within 1 week for your headache. Also, please see your primary care doctor within 1 week. Return to the emergency department immediately for any new or concerning symptoms or if your symptoms get worse. Thank you for coming to the Emergency Department today for your care. It was a pleasure to see you today. Please note that your evaluation is INCOMPLETE until you follow-up with your doctor. - Post Discharge Activity Forms/Work/School Notes: Back to Work
[2017-01-23] MEDS ORDERED: METOCLOPRAMIDE HCL INJECTION 10 MG/2 ML VIAL IVPB ONE (09:59)
[2017-01-23] MEDS ORDERED: SODIUM CHLORIDE 0.9% 500 ML INFUS.BAG IV ONE (09:59)
[2017-01-23] MEDS ORDERED: ACETAMINOPHEN 500 MG TABLET (FP) PO ONE (09:59)
[2017-01-23 10:43] LABS: BASOPHIL 1.1 % (0-2.0); EOSINOPHIL 2.1 % (0-4.5); MCH 27.3 pg (25.7-33.7); MCHC 32.7 g/dl (32.0-36.0); MEAN CELL VOLUME 83.4 fl (80-96); MEAN PLT VOLUME 8.3 fl (7.5-11.1); NEUTROPHILS 60.6 % (42.8-82.8); PLATELET COUNT 251 K/MM3 (134-434); RDW 17.6 % (11.6-15.6); WHITE BLOOD COUNT 5.4 K/mm3 (4.0-10.0)
[2017-01-23] MEDS ORDERED: ACETAMINOPHEN 325 MG TABLET (FP) ONE (10:46)
[2017-01-23] MEDS ORDERED: METOCLOPRAMIDE HCL INJECTION 10 MG/2 ML VIAL ONE (10:46)
[2017-01-23 11:11] LABS: ALBUMIN 4.1 g/dl (3.4-5.0); ANION GAP 8 (8-16); CALCIUM 8.9 mg/dL (8.5-10.1); CO2 24 mmol/L (21-32); CREATININE 0.7 mg/dL (0.55-1.02); GLUCOSE,RANDOM 82 mg/dL (74-106); SGOT/AST 15 U/L (15-37); SGPT/ALT 23 U/L (12-78)
[2017-01-23 11:12] LABS: ALK PHOS 72 U/L (45-117); BILIRUBIN,TOTAL 0.9 mg/dL (0.2-1.0); TOT PROT 7.6 g/dl (6.4-8.2)
[2017-01-23 13:48] VITALS: BP 127/68; PULSE 76
== END 2017-01-23 13:48 | disposition home or self-care (01) ==
LOC: JER 09:29
PROC: 3E033GC Introduction of Other Therapeutic Substance into Peripheral Vein, Percutaneous Approach (ICD-10-PCS; principal; 2017-01-23)
DX: R51 Headache (principal)
CPT/HCPCS: 36415; 80053; 84703; 85025; 99282-25

== ENCOUNTER 2017-01-26 15:36 | Emergency (ER) | payer OTHER ==
[2017-01-26 15:52] VITALS: BP 117/75; PULSE 88; TEMP 98.4; BMI 25.0
[2017-01-26] MEDS ORDERED: SODIUM CHLORIDE 0.9% 1000 ML INFUS.BAG IV ONE (17:22)
[2017-01-26] MEDS ORDERED: METOCLOPRAMIDE HCL INJECTION 10 MG/2 ML VIAL IVPUSH ONE (17:22)
[2017-01-26] MEDS ORDERED: KETOROLAC TROMETHAMINE 30 MG/1 ML VIAL IVPUSH ONE (17:22)
--- NOTE | 2017-01-26 17:24 | PDOC ---
History of Present Illness - General Chief Complaint: Ear Problem Stated Complaint: EAR PROBLEM Time Seen by Provider: 01/26/17 16:06 - History of Present Illness Initial Comments: 01/26/17 17:23 CHIEF COMPLAINT: headache, palpitations HISTORY OF PRESENT ILLNESS: 36 yo F with hx of recurrent headaches presents to ED with severe headache and new onset R ear pain. Patient reports she was recently seen in this ER and treated for the same thing but the headache returned. She has been prescribed sumatriptan and Percocet which she has taken without relief. She reports severe photophobia to the point where "I can't walk outside because the light is too strong" She denies any shortness of breath , blurry vision, weakness, difficulty speaking or swallowing, and friend at bedside reports she is acting at baseline. No recent travel or sick contacts. PAST MEDICAL HISTORY: Denies past medical history FAMILY HISTORY: Denies SOCIAL HISTORY:Denies tobacco, alcohol, illicit drug use. SURGICAL HISTORY: Denies ALLERGIES: No known drug allergies REVIEW OF SYSTEMS General/Constitutional: Denies fever or chills. Denies weakness, weight change. HEENT: Denies change in vision. Denies ear pain or discharge. Denies sore throat. Cardiovascular: Denies chest pain or shortness of breath. Respiratory: Denies cough, wheezing, or hemoptysis. Gastrointestinal: Denies nausea, vomiting, diarrhea or constipation. Denies rectal bleeding. Genitourinary: Denies dysuria, frequency, or change in urination. Musculoskeletal: Denies joint or muscle swelling or pain. Denies neck or back pain. Skin and breasts: Denies rash or easy bruising. Neurologic: Headache. Denies vertigo, loss of consciousness, or loss of sensation. PHYSICAL EXAM General Appearance: Well-appearing, appropriately dressed. No apparent distress. HEENT: Photophobia. EOMI, PERRLA. No scleral icterus. Respiratory/Chest: Lungs CTAB. Cardiovascular: RRR. S1, S2. Musculoskeletal/Extremities: Normal inspection. FROM of all extremities, normal capillary refill. Pelvis Stable. No CVA tenderness. No tenderness to extremities, pedal edema, swelling, erythema or deformity. Integumentary: Appropriate color, dry, warm. No cyanosis, erythema, jaundice or rash Neurologic: insulation applicator II-XII intact. Fully oriented, alert. Appropriate mood/affect. Motor strength 5/5. No appreciable EOM palsy, facial droop or sensory deficit. A&Ox3, follow commands, respond appropriately CN2-12: conjugate gaze, pupil round, equal and reactive to light. Visual field full to confrontation. EOMI without nystagmus, pursuit is smooth without saccade. Facial sensation and muscle activation intact bilaterally. Hearing intact bilaterally. Palate elevate symmetrically. Shoulder shrug and neck turn full strength. Tongue protrude midline. Motor: UE and LE strength 5/5 throughout bilaterally. Muscle tone and bulk normal. Past History - Past Medical History Allergies/Adverse Reactions: Allergies Allergy/AdvReac Type Severity Reaction Status Date / Time No Known Allergies Allergy Verified 01/26/17 15:47 Home Medications: Ambulatory Orders Acetaminophen [Tylenol .Extra-Strength -] 500 mg PO Q6H PRN #24 tablet 01/11/17 Ciprofloxacin HCl/Dexameth [Ciprodex Otic Suspension] 4 drop AD BID #1 bottle Seizures: Yes (childhood epilepsy) - Surgical History Abdominal Surgery: Yes (tummy tuck) Cholecystectomy: Yes - Suicide/Smoking/Psychosocial Hx Smoking Status: No Smoking History: Never smoked Have you smoked in the past 12 months: No Number of Cigarettes Smoked Daily: 0 Hx Alcohol Use: No Drug/Substance Use Hx: No Substance Use Type: None Neuro Specific PMHX - Complaint Specific PMHX Migraine: Yes *Physical Exam - Vital Signs Last Vital Signs Temp Pulse Resp BP Pulse Ox 98.4 F 88 18 117/75 100 01/26/17 15:48 01/26/17 15:48 01/26/17 15:48 01/26/17 15:48 01/26/17 15:48 Medical Decision Making - Medical Decision Making 01/26/17 17:27 36 yo F with hx of recurrent headaches presents to ED with severe headache and new onset R ear pain. -IVF, Reglan, Toradol, Tylenol *DC/Admit/Observation/Transfer Diagnosis at time of Disposition: Headache Qualifiers: Headache type: unspecified Headache chronicity pattern: chronic headache Intractability: intractable Qualified Code(s): R51 - Headache - Discharge Dispostion Disposition: HOME Admit: No - Prescriptions Prescriptions: Ciprofloxacin HCl/Dexameth [Ciprodex Otic Suspension] 4 drop AD BID #1 bottle - Referrals Referrals: Román Lopes MD [Primary Care Provider] - Sandro Soliman MD [Staff Physician] - Arnol Edgar MD [Staff Physician] - Jon Gonzalez MD [Staff Physician] - Eyal Garcia [Non Staff, Medical] - - Patient Instructions Printed Discharge Instructions: DI for Hormonal and Tension Headaches, DI for Migraine Additional Instructions: As discussed, please try to see a neurologist as soon as possible. I have provided a few different referrals for you to try calling; alternatively, you can also call your insurance company for a list of neurologists to see who has an available appointment as soon as possible. If you develop any sudden, thunderclap headache, difficulty speaking, swallowing, walking, weakness to one side, or any new or worsening symptoms, please return to the ER immediately. Mahin se discuti, por favor trate de luis a a un neurlogo orosco pronto mahin sea posible. He proporcionado algunas referencias diferentes para que usted intente llamar; alternativamente, sarah puede llamar a medel compaa de seguros para michell lista de neurlogos para luis a lupillo tiene michell cece disponible orosco pronto mahin sea posible. Si usted desarrolla algn dolor de reyna repentino, trueno, dificultad para hablar, tragar, caminar, debilidad a un lado, o cualquier nuevo o empeoramiento de los sntomas, por favor regrese inmediatamente al urgente. Print Language: BERMUDIAN
[2017-01-26] MEDS ORDERED: KETOROLAC TROMETHAMINE 30 MG/1 ML VIAL ONE (17:26)
[2017-01-26] MEDS ORDERED: METOCLOPRAMIDE HCL INJECTION 10 MG/2 ML VIAL ONE (17:26)
== END 2017-01-26 19:11 | disposition home or self-care (01) ==
LOC: JERFT 15:36
PROC: 3E0333Z Introduction of Anti-inflammatory into Peripheral Vein, Percutaneous Approach (ICD-10-PCS; principal; 2017-01-26)
PROC: 3E033GC Introduction of Other Therapeutic Substance into Peripheral Vein, Percutaneous Approach (ICD-10-PCS; 2017-01-26)
PROC: 3E033GC Introduction of Other Therapeutic Substance into Peripheral Vein, Percutaneous Approach (ICD-10-PCS; 2017-01-26)
DX: R51 Headache (principal); Z86.69 Personal history of other diseases of the nervous system and sense organs
CPT/HCPCS: 96374; 96375; 99281-25

== ENCOUNTER 2017-01-27 19:14 | Emergency (ER) | payer OTHER ==
[2017-01-27 19:26] VITALS: BP 136/77; PULSE 87; TEMP 98.8
[2017-01-27] MEDS ORDERED: SODIUM CHLORIDE 0.9% 1000 ML INFUS.BAG IV ONE (20:40)
[2017-01-27] MEDS ORDERED: KETOROLAC TROMETHAMINE 30 MG/1 ML VIAL IVPUSH ONE (20:40)
[2017-01-27] MEDS ORDERED: METOCLOPRAMIDE HCL INJECTION 10 MG/2 ML VIAL IVPB ONE (20:40)
--- NOTE | 2017-01-27 20:54 | PDOC ---
History of Present Illness - General Chief Complaint: Pain Stated Complaint: HEADACHE Time Seen by Provider: 01/27/17 20:06 History Source: Patient, Family Exam Limitations: No Limitations - History of Present Illness Initial Comments: 01/27/17 20:49 Patient is a 36-year-old female with history of seizure disorder, migraine, scoliosis, cholecystectomy, complaining of right-sided headache x 1 month. States the pain started after have a root canal on 12/22/16. States her pain has been progressively worsening now pain is 9/10, sharp stabbing, to the right side of head and face up to the jaw which has been assoc/w dizziness and vision going black on occasion, but today with nausea, no vomiting, dizziness. She has been taking migraine meds incl imitrex with relief of symptoms. Did not take imtrex today but took Advil without relief of symptoms. 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 has been seen many times in the ED for this pain and has attempted to get a follow up with the Neurologist but given an appointment for March. Last time seen in the ED was given gtt for the ear due to infection. Patient states she has also visited the dentist since the pain started after the root canal but has not gotten a dental diagnosis for the pain. Denies any fever, chills, neck pain, rash. PMD: Marianne Calle PMH: As above PSOCHx: neg cig, neg etoh, neg drugs ALL: NKDA GENERAL/CONSTITUTIONAL: [No fever or chills. No weakness. No weight change.] HEAD, EYES, EARS, NOSE AND THROAT: [No change in vision. No ear pain or discharge. No sore throat.] CARDIOVASCULAR: [No chest pain or shortness of breath.] RESPIRATORY: [No cough, wheezing, or hemoptysis.] GASTROINTESTINAL: (+) nausea, (-) vomiting, diarrhea or constipation. No rectal bleeding.] GENITOURINARY: [No dysuria, frequency, or change in urination.] MUSCULOSKELETAL: [No joint or muscle swelling or pain. No neck or back pain.] SKIN AND BREASTS: [No rash or easy bruising.] NEUROLOGIC: (+) headache, (+) vertigo, loss of consciousness, or loss of sensation.] PSYCHIATRIC: [No depression or anxiety.] ENDOCRINE: [No increased thirst. No abnormal weight change.] HEMATOLOGIC/LYMPHATIC: [No anemia, easy bleeding, or history of blood clots.] ALLERGIC/IMMUNOLOGIC: [No hives or skin allergy. No latex allergy.] GENERAL: [The patient is awake, alert, and fully oriented, in no acute distress. ] HEAD: [Normal with no signs of trauma, (+) right facial tenderness.] EYES: [Pupils equal, round and reactive to light, extraocular movements intact, sclera anicteric, conjunctiva clear.] ENT: [Ears normal, nares patent, oropharynx clear without exudates. TM pearly olivas intact, (+) right tragal tenderness, Moist mucous membranes, (+) cavities right molar with gum tederness, no abscess NECK: [Normal range of motion, supple without lymphadenopathy, JVD, or masses.] LUNGS: [Breath sounds equal, clear to auscultation bilaterally. No wheezes, and no crackles.] HEART: [Regular rate and rhythm, normal S1 and S2 without murmur, rub.] ABDOMEN: [Soft, nontender, normoactive bowel sounds. No guarding, no rebound. No masses.] EXTREMITIES: [Normal range of motion, no edema. No clubbing or cyanosis. No cords, erythema, or tenderness.] NEUROLOGICAL: [Cranial nerves II through XII grossly intact. No facial asymmetry , Normal speech, normal gait.] PSYCH: [Normal mood, normal affect.] SKIN: [Warm, Dry, normal turgor, no rashes or lesions noted.] Past History - Past Medical History Allergies/Adverse Reactions: Allergies Allergy/AdvReac Type Severity Reaction Status Date / Time No Known Allergies Allergy Verified 01/27/17 19:24 Home Medications: Ambulatory Orders Acetaminophen [Tylenol .Extra-Strength -] 500 mg PO Q6H PRN #24 tablet 01/11/17 Ciprofloxacin HCl/Dexameth [Ciprodex Otic Suspension] 4 drop AD BID #1 bottle Seizures: Yes (childhood epilepsy) Other medical history: migraines - Surgical History Abdominal Surgery: Yes (johnny jhaveri) Cholecystectomy: Yes - Suicide/Smoking/Psychosocial Hx Smoking Status: No Smoking History: Never smoked Have you smoked in the past 12 months: No Number of Cigarettes Smoked Daily: 0 Hx Alcohol Use: No Drug/Substance Use Hx: No Substance Use Type: None Neuro Specific PMHX - Complaint Specific PMHX Migraine: Yes *Physical Exam - Vital Signs Last Vital Signs Temp Pulse Resp BP Pulse Ox 98.8 F 87 18 136/77 100 01/27/17 19:24 01/27/17 19:24 01/27/17 19:24 01/27/17 19:24 01/27/17 19:24 Medical Decision Making - Medical Decision Making Patient is a 36-year-old female with history of seizure disorder, migraine, scoliosis, cholecystectomy, complaining of right-sided headache x 1 month. DDX migraine POPE, dental pain, 01/27/17 22:29 Patient states feeling better pain now is 5/10, will give Tylenol 975 mg by mouth and then discharged for home. 01/27/17 22:30 Patient was instructed to follow-up with her primary care doctor to get a sooner appointment to neurology and a more through dental assessment. I discussed the physical exam findings, ancillary test results and final diagnoses with the patient. I answered all of the patient's questions. The patient was satisfied with the care received and felt comfortable with the discharge plan and treatment plan. The Patient agrees to follow up with the primary care physician within 24-72 hours. *DC/Admit/Observation/Transfer Diagnosis at time of Disposition: Headache Qualifiers: Headache type: unspecified Headache chronicity pattern: unspecified pattern Intractability: not intractable Qualified Code(s): R51 - Headache - Discharge Dispostion Disposition: HOME Condition at time of disposition: Stable - Referrals Referrals: Román Lopes MD [Primary Care Provider] - - Patient Instructions Additional Instructions: Your Discharge Instructions: You must call primary care physician within 24 hours to arrange follow-up. Return to the Emergency Department with any new, persistent or worsening symptoms, for fever, chills, SOB, dizziness or any other concerning changes that may occur. He was follow-up with your primary care doctor to facilitate an earlier appointment for neurology. - Post Discharge Activity Forms/Work/School Notes: Back to Work
[2017-01-27] MEDS ORDERED: METOCLOPRAMIDE HCL INJECTION 10 MG/2 ML VIAL ONE (21:14)
[2017-01-27] MEDS ORDERED: KETOROLAC TROMETHAMINE 30 MG/1 ML VIAL ONE (21:14)
[2017-01-27] MEDS ORDERED: ACETAMINOPHEN 500 MG TABLET (FP) PO ONE (22:29)
[2017-01-27] MEDS ORDERED: ACETAMINOPHEN 325 MG TABLET (FP) ONE (22:49)
== END 2017-01-27 22:42 | disposition home or self-care (01) ==
LOC: JER 19:14 → JERFT 19:14 → JER 22:42
PROC: 3E0333Z Introduction of Anti-inflammatory into Peripheral Vein, Percutaneous Approach (ICD-10-PCS; principal; 2017-01-27)
PROC: 3E033GC Introduction of Other Therapeutic Substance into Peripheral Vein, Percutaneous Approach (ICD-10-PCS; 2017-01-27)
PROC: 3E033GC Introduction of Other Therapeutic Substance into Peripheral Vein, Percutaneous Approach (ICD-10-PCS; 2017-01-27)
DX: G43.909 Migraine, unspecified, not intractable, without status migrainosus (principal); R51 Headache; Z86.69 Personal history of other diseases of the nervous system and sense organs; M41.9 Scoliosis, unspecified; Z90.49 Acquired absence of other specified parts of digestive tract
CPT/HCPCS: 84703; 96374; 96375; 99281-25

== ENCOUNTER 2017-02-06 17:31 | Emergency (ER) | payer OTHER ==
[2017-02-06 17:34] VITALS: BP 111/90; PULSE 95; TEMP 98.4; BMI 24.6
--- NOTE | 2017-02-06 17:52 | PDOC ---
History of Present Illness - General Chief Complaint: Headache Stated Complaint: HEADACHE/EARACHE Time Seen by Provider: 02/06/17 17:48 History Source: Patient Exam Limitations: No Limitations - History of Present Illness Initial Comments: 02/06/17 19:53 Chief complaint: Facial pain interpeter [id number] Patient is a healthy 36-year-old female who had root canal on the right upper side of her mouth 2 months ago and since then has been having headaches and facial pain. She was seen in the ER several times, review of her visit showed that she had much worse complaints earlier. No fever, no visual issues no nausea or vomiting. Shouldn't had seen her primary care doctor and was taking Imitrex. Patient saw the oral surgeon recently who put her on steroids on January 30 which she has finished and she is scheduled to have the root canals taken out next . He had told her she can take Motrin and to the ER because she's having trouble sleeping at night. GENERAL/CONSTITUTIONAL: No fever, weakness. dizziness HEAD, EYES, EARS, NOSE AND THROAT: No change in vision. No ear pain or discharge. No sore throat. + Facial pain CARDIOVASCULAR: No chest pain RESPIRATORY: No shortness of breath or cough GASTROINTESTINAL: No pain, nausea, vomiting, diarrhea or constipation GENITOURINARY: No dysuria MUSCULOSKELETAL: No neck or back pain SKIN: No rash NEUROLOGIC: No headache, vertigo, loss of consciousness, or loss of sensation. GENERAL: The patient is awake, alert, and fully oriented, in no acute distress. HEAD: Normal with no signs of trauma. EYES: Pupils equal, round and reactive to light, sclera anicteric, conjunctiva clear. ENT: ears clear, TMs normal pharynx: no erythema, no exudate, uvula midline, pain with movement of mouth NECK: supple CHEST: clear, nontender, rr ABD: soft, nontender EXTREMITIES: Normal range of motion, no edema. NEUROLOGICAL: Normal speech, normal gait. SKIN: Warm, Dry Past History - Past Medical History Allergies/Adverse Reactions: Allergies Allergy/AdvReac Type Severity Reaction Status Date / Time No Known Allergies Allergy Verified 02/06/17 17:34 Home Medications: Ambulatory Orders Naproxen [Naprosyn -] 500 mg PO BID #20 tablet 02/06/17 Oxycodone HCl/Acetaminophen [Percocet 5-325 mg Tablet] 1 tab PO Q6H PRN #20 tablet MDD 4 02/06/17 Seizures: Yes (childhood epilepsy) - Surgical History Abdominal Surgery: Yes (johnny londonck) Cholecystectomy: Yes - Suicide/Smoking/Psychosocial Hx Smoking Status: No Smoking History: Never smoked Have you smoked in the past 12 months: No Number of Cigarettes Smoked Daily: 0 Information on smoking cessation initiated: No Hx Alcohol Use: No Drug/Substance Use Hx: No Substance Use Type: None *Physical Exam - Vital Signs Last Vital Signs Temp Pulse Resp BP Pulse Ox 98.4 F 95 H 18 111/90 99 02/06/17 17:32 02/06/17 17:32 02/06/17 17:32 02/06/17 17:32 02/06/17 17:32 Medical Decision Making - Medical Decision Making 02/06/17 19:57 Continuing issue related to root canal on the right side of the face area and patient is going to have a procedure week. Patient is here for pain no other issues, no concerning findings. she is here because mireyarin is not working will rx naprosyn and percocet *DC/Admit/Observation/Transfer Diagnosis at time of Disposition: Facial pain - Discharge Dispostion Disposition: HOME Condition at time of disposition: Stable - Prescriptions Prescriptions: Naproxen [Naprosyn -] 500 mg PO BID #20 tablet Oxycodone HCl/Acetaminophen [Percocet 5-325 mg Tablet] 1 tab PO Q6H PRN #20 tablet MDD 4 PRN Reason: Pain - Referrals Referrals: Román Lopes MD [Primary Care Provider] - - Patient Instructions Additional Instructions: Take the naprosyn 500 mg every 12 hours take the percocet at bedtime follow up with your dentist as scheduled - Post Discharge Activity Forms/Work/School Notes: Back to Work
[2017-02-06] MEDS ORDERED: KETOROLAC TROMETHAMINE 60 MG/2 ML VIAL IM ONE (18:53)
[2017-02-06] MEDS ORDERED: KETOROLAC TROMETHAMINE 60 MG/2 ML VIAL ONE (18:55)
== END 2017-02-06 19:13 | disposition home or self-care (01) ==
LOC: JERFT 17:31
PROC: 3E0233Z Introduction of Anti-inflammatory into Muscle, Percutaneous Approach (ICD-10-PCS; principal; 2017-02-06)
DX: R51 Headache (principal)
CPT/HCPCS: 99281-25

== ENCOUNTER 2017-02-11 18:26 | Emergency (ER) | payer OTHER ==
[2017-02-11 18:33] VITALS: BP 118/75; PULSE 81; TEMP 97.6; BMI 221.3
--- NOTE | 2017-02-11 19:28 | PDOC ---
History of Present Illness - General Chief Complaint: Toothache Stated Complaint: TOOTHACHE Time Seen by Provider: 02/11/17 18:32 History Source: Patient Exam Limitations: No Limitations - History of Present Illness Initial Comments: 02/11/17 19:25 this female has a toothache to the right side of her mouth. She has been having this chronically over the last couple of weeks. She's had root canal in it. Then she had some antibiotics for some questionable abscess or redness. It appears now that they are pink and there is no abscess or redness seen. She states that she has excruciating pain and is now running up along the frontal of her head. She denies any blurry vision. She is complaining of increased pain and wants more pain medication IV. Past History - Past Medical History Allergies/Adverse Reactions: Allergies Allergy/AdvReac Type Severity Reaction Status Date / Time No Known Allergies Allergy Verified 02/11/17 18:30 Home Medications: Ambulatory Orders Naproxen [Naprosyn -] 500 mg PO BID #20 tablet 02/06/17 Oxycodone HCl/Acetaminophen [Percocet 5-325 mg Tablet] 1 tab PO Q6H PRN #20 tablet MDD 4 02/06/17 Seizures: Yes (childhood epilepsy) - Surgical History Abdominal Surgery: Yes (johnny jhaveri) Cholecystectomy: Yes - Suicide/Smoking/Psychosocial Hx Smoking Status: No Smoking History: Never smoked Have you smoked in the past 12 months: No Number of Cigarettes Smoked Daily: 0 Hx Alcohol Use: No Drug/Substance Use Hx: No Substance Use Type: None Review of Systems - Review of Systems Able to Perform ROS?: Yes Comments:: 02/11/17 19:26 General statement: Complaining of pain to the face Hematology: neg history of bleeding/blood thinners Skin: Neg for lesions, rash, bruising. HEENT: Neg symptoms right sided oral pain Respiratory: Neg SOB or difficulty in breathing Cardiac: Neg chest pain GI: Neg pain, n/v : Neg problems on voiding MS: Neg for joint pain/stiffness, no edema Neuro: Neg for LOC, weakness, Endocrine: Neg for excess thirst/hunger, cold/heat intolerance, excess sweating Allergies: Neg for allergies *Physical Exam - Vital Signs Last Vital Signs Temp Pulse Resp BP Pulse Ox 97.6 F 81 18 118/75 97 02/11/17 18:27 02/11/17 18:27 02/11/17 18:27 02/11/17 18:27 02/11/17 18:27 - Physical Exam Comments: 02/11/17 19:27 General Appearance: This well appearing V/S: hemodynamically stable, afebrile Skin: WNL of pt's skin color, no signs of pallor, mottling, cyanosis Head:symmetrical Eyes: EOM's intact, PERRLA Ears: denies pain Nose: patent Throat: lips, teeth, gums, tongue, buccal mucos pink and moist Lungs: Chest symmetry equal. Cap refill <3 seconds. Lung sounds clear Cardiac: PMI at R 4MCL space, pos S1 and S2, regular rate. Abdomen: Soft, round, nontender : Not observed Muscularskeletal: Gait steady, ambulated in to ER, no edema +PMS Neuro: AAOx3, cognitively intact, speech clear and appropriate. Medical Decision Making - Medical Decision Making 02/11/17 19:27 Patient was seen and examined with children present. Explain to the patient that she is not going to get an IV with IV narcotics for pain because she wants to go to sleep. She was given Percocet prior to coming in here. I explained that I Can have her increase the Percocet instead of the 1 every 12 hours she can now increases to 1 every 6 hours or 2 every 12 to pending on her pain. She also will be following up with her dentist on for a tooth extraction. Oral cavity appears well and does not appear to be having any erythema or pussy abscesses. *DC/Admit/Observation/Transfer Diagnosis at time of Disposition: Tooth ache - Discharge Dispostion Disposition: HOME Condition at time of disposition: Good Admit: No - Patient Instructions Printed Discharge Instructions: DI for Dental Pain Additional Instructions: Discharge instructions 1. Please follow up with your primary physician within the next few days and explain that you have been seen here in the Emergency Room. Follow up with your dentist this week 2. If you experience any worsening of symptoms, please return to the ER 3. Rest, ice and pain medication 4. Drink plenty of water
== END 2017-02-11 19:32 | disposition home or self-care (01) ==
LOC: JER 18:26 → JERFT 18:26
DX: K08.9 Disorder of teeth and supporting structures, unspecified (principal); Z86.69 Personal history of other diseases of the nervous system and sense organs
CPT/HCPCS: 99281-25

== ENCOUNTER 2017-02-21 07:39 | Observation (INO) | payer OTHER ==
--- NOTE | 2017-02-21 07:49 | PDOC ---
History of Present Illness - General Chief Complaint: Lightheaded Stated Complaint: SEIZURE Time Seen by Provider: 02/21/17 07:45 History Source: Patient Exam Limitations: No Limitations - History of Present Illness Initial Comments: 02/21/17 08:17 Patient is a 36-year-old female with past medical history of childhood epilepsy , recent root canal, who presents to the emergency department today complaining of lightheadedness, weakness, dizziness and reporting having a seizure at home. Pt. reports that when she woke up this morning she felt very light headed and had severe pain on the right side of her head. She states "it felt like my seizures and I was having a seizure." Pt. also states she was aware of what was happening the entire time and she did not lose consciousness at any point. Now, she states that she feels lightheaded and that she has pain and numbness on the right side of her face. Denies fevers, chills, nausea, vomiting, rhinorrhea, aura, photophobia, phonophobia, chest pain, shortness of breath, abdominal pain. NIH Stroke Scale - Last Known Well Date/Time & Onset Date Last Known Well: 02/20/17 Time Last Known Well: 23:00 - Initial Evaluation Level of consciousness: Alert Ask patient the month and their age: Answers both correctly Ask patient to open & close eyes; make fist and let go: Obeys both correctly Best gaze (horizontal eye movement): Normal Visual field testing: No visual field loss Facial paresis (Show teeth/raise eyebrows/close eyes tight): Normal symmetrical movement Motor Function: Left Arm: Normal Motor Function: Right Arm: Normal (extends arm 90 (or 45) degrees for 10 seconds without drift Motor Function: Left Leg: Normal (extends leg 30 degrees for 5 seconds without drift) Motor Function: Right Leg: Normal (extends leg 30 degrees for 5 seconds without drift) Limb Ataxia: No ataxia Sensory(Use pinprick test arms,legs,trunk,face/side to side): Normal Best language (Describe picture, name items, read sentences): No Aphasia Dysarthria (read several words): Normal articulation Extinction and Inattention: No abnormality - Total Score NIH Stroke Scale Score: 0 Past History - Travel Traveled outside of the country in the last 30 days: No Close contact w/someone who was outside of country & ill: No - Past Medical History Allergies/Adverse Reactions: Allergies Allergy/AdvReac Type Severity Reaction Status Date / Time No Known Allergies Allergy Verified 02/21/17 07:39 Home Medications: Ambulatory Orders Methylprednisolone [Medrol Dose Tyson] 4 mg PO ASDIR 02/21/17 Seizures: Yes (childhood epilepsy) - Surgical History Abdominal Surgery: Yes (tummy tuck) Cholecystectomy: Yes - Suicide/Smoking/Psychosocial Hx Smoking Status: No Smoking History: Never smoked Have you smoked in the past 12 months: No Number of Cigarettes Smoked Daily: 0 Information on smoking cessation initiated: No Hx Alcohol Use: No Drug/Substance Use Hx: No Substance Use Type: None Review of Systems - Review of Systems Able to Perform ROS?: Yes Comments:: 02/21/17 08:17 CONSTITUTIONAL: Present: weakness Absent: fever, chills, diaphoresis, malaise, loss of appetite HEENT: Present: blurry vision (just got a rx for glasses). Absent: rhinorrhea, nasal congestion, throat pain, throat swelling, difficulty swallowing, mouth swelling , ear pain, eye pain CARDIOVASCULAR: Absent: chest pain, loss of consciousness, palpitations, irregular heart rate, peripheral edema RESPIRATORY: Absent: cough, shortness of breath, dyspnea with exertion, orthopnea, wheezing, stridor, hemoptysis GASTROINTESTINAL: Absent: abdominal pain, abdominal distension, nausea, vomiting, diarrhea, constipation, melena, hematochezia GENITOURINARY: Absent: dysuria, frequency, urgency, hesitancy, hematuria, flank pain, genital pain MUSCULOSKELETAL: Absent: myalgia, arthralgia, joint swelling SKIN: Absent: rash, itching, pallor HEMATOLOGIC/IMMUNOLOGIC: Absent: easy bleeding, easy bruising, lymphadenopathy, frequent infections ENDOCRINE: Absent: unexplained weight gain, unexplained weight loss, heat intolerance, cold intolerance NEUROLOGIC: Present: headache,dizziness, unsteady gait, seizure (?). Absent: focal weakness or paresthesias, mental status changes, bladder or bowel incontinence PSYCHIATRIC: Absent: anxiety, depression, suicidal or homicidal ideation, hallucinations. Is the patient limited Tongan proficient: No *Physical Exam - Vital Signs Last Vital Signs Temp Pulse Resp BP Pulse Ox 98.1 F 77 20 121/86 100 02/21/17 07:40 02/21/17 07:40 02/21/17 07:40 02/21/17 07:40 02/21/17 07:40 - Physical Exam Comments: 02/21/17 08:19 GENERAL: Well developed, well nourished. AAOx3. No acute distress, laying on exam bed HEENT: Normocephalic, atraumatic. PERRLA, EOMI. No conjunctival pallor. Sclera are non- icteric. Moist mucous membranes. Oropharynx is clear. NECK: Supple. Full ROM. No JVD. Carotid pulses 2+ and symmetric, without bruits. No thyromegaly. No lymphadenopathy. CARDIOVASCULAR: Regular rate and rhythm. No murmurs, rubs, or gallops. Distal pulses are 2+ and symmetric. PULMONARY: No evidence of respiratory distress. Lungs clear to auscultation bilaterally. No wheezing, rales or rhonchi. ABDOMINAL: Soft. Non-tender. Non-distended. No rebound or guarding. No organomegaly. Normoactive bowel sounds. MUSCULOSKELETAL Normal range of motion at all joints. No bony deformities or tenderness. No CVA tenderness. EXTREMITIES: No cyanosis. No clubbing. No edema. No calf tenderness. SKIN: Warm and dry. Normal capillary refill. No rashes. No jaundice. NEUROLOGICAL: Alert, awake, appropriate. Cranial nerves 2-12 intact. No deficits to light touch and temperature in face, upper extremities and lower extremities. No motor deficits in the in face, upper extremities and lower extremities. Normoreflexic in the upper and lower extremities. Normal speech. Toes are down- going bilaterally. Gait is normal without ataxia. No dysarthria, dysmetria. PSYCHIATRIC: Cooperative. Good eye contact. Appropriate mood and affect. ED Treatment Course - LABORATORY CBC & Chemistry Diagram: 02/21/17 08:30 02/21/17 08:30 Medical Decision Making - Medical Decision Making 02/21/17 08:25 Pt. is a 36 y/o female with PMH of childhood epilepsy, recent root canal, presents to the ED c/o R sided facial numbness, and headache. Pt. has been seen in the ED multiple times for similar symptoms, however, todays pain is worse than in the past. Mouth where the root canal took place looks like it is healing , no evidence of infection. Still possibilty for nerve root left behind. Will r/ o stroke. Other DDX include MS, trigeminal nerve pain. 1. CBC, CMP, PT/INR UA, UC, Upreg 2. CT head 3. Ofirmev, IV fluids 4. Re-evaluate 02/21/17 09:15 Still c/o pain. Will add reglan and benadryl 02/21/17 10:07 CT: No evidence of acute intracranial pathology. No bleed Pt. still c/o pain. will give toradol. Numbness has not improved either Considering obs at this point for further work-up given multiple recent visits. 02/21/17 11:[address] Hemphill, neuro. Given presenting symptoms, intractable headache and numbness, agrees with obs. Will see the pt and recommends MRI. 02/21/17 11:26 Spoke with Jing Benitez [employer] COORDINATOR with sympony. Sign out given and pt to be admitted to obs med/surg *DC/Admit/Observation/Transfer Diagnosis at time of Disposition: Right facial numbness Headache Qualifiers: Headache type: unspecified Headache chronicity pattern: acute headache Intractability: intractable Qualified Code(s): R51 - Headache - Discharge Dispostion Condition at time of disposition: Stable Admit: Yes
[2017-02-21] MEDS ORDERED: SODIUM CHLORIDE 1,000 ML IV STA ×2 (08:05→12:34)
[2017-02-21] MEDS ORDERED: ONDANSETRON 4 MG/2 ML VIAL IVPUSH ONE (08:05)
[2017-02-21] MEDS ORDERED: ACETAMINOPHEN 1000 MG/100 ML VIAL (NON FORMULARY) IVPB ONE (08:06)
[2017-02-21] MEDS ORDERED: ONDANSETRON 4 MG/2 ML VIAL ONE (08:15)
[2017-02-21] MEDS ORDERED: ACETAMINOPHEN INJECTION 100 ML IVPB ONE (08:15)
[2017-02-21 08:48] LABS: BASOPHIL 0.8 % (0-2.0); EOSINOPHIL 0.1 % (0-4.5); MCH 27.5 pg (25.7-33.7); MEAN CELL VOLUME 83.4 fl (80-96); MEAN PLT VOLUME 8.5 fl (7.5-11.1); NEUTROPHILS 77.4 % (42.8-82.8); PLATELET COUNT 205 K/MM3 (134-434); RDW 17.5 % (11.6-15.6); WHITE BLOOD COUNT 6.4 K/mm3 (4.0-10.0)
[2017-02-21 09:10] LABS: ALBUMIN 3.9 g/dl (3.4-5.0); ALK PHOS 62 U/L (45-117); ANION GAP 8 (8-16); BILIRUBIN,TOTAL 0.6 mg/dL (0.2-1.0); CALCIUM 8.3 mg/dL (8.5-10.1); CO2 24 mmol/L (21-32); CREATININE 0.8 mg/dL (0.55-1.02); GLUCOSE,RANDOM 88 mg/dL (74-106); MAGNESIUM 2.2 mg/dL (1.8-2.4); PHOSPHOROUS 2.6 mg/dL (2.5-4.9); SGOT/AST 11 U/L (15-37); SGPT/ALT 17 U/L (12-78); TOT PROT 7.3 g/dl (6.4-8.2)
[2017-02-21 09:28] LABS: INR 1.06 (0.82-1.09)
[2017-02-21] MEDS ORDERED: METOCLOPRAMIDE HCL INJECTION 10 MG/2 ML VIAL IVPUSH ONE (09:47)
[2017-02-21 10:14] LABS: URINE APPEARANCE CLEAR; URINE BILIRUBIN NEGATIVE (NEGATIVE); URINE BLOOD NEGATIVE (NEGATIVE); URINE COLOR LT. YELLOW; URINE GLUCOSE (UA) NEGATIVE (NEGATIVE); URINE KETONE 3+ (NEGATIVE); URINE NITRITE NEGATIVE (NEGATIVE); URINE PROTEIN NEGATIVE (NEGATIVE); URINE UROBILINOGEN 0.2 mg/dL (0.2-1.0)
[2017-02-21] MEDS ORDERED: METOCLOPRAMIDE HCL INJECTION 10 MG/2 ML VIAL ONE (10:20)
[2017-02-21] MEDS ORDERED: KETOROLAC TROMETHAMINE 30 MG/1 ML VIAL IVPUSH ONE (12:46)
[2017-02-21] MEDS ORDERED: KETOROLAC TROMETHAMINE 30 MG/1 ML VIAL ONE (13:07)
[2017-02-21] MEDS ORDERED: ACETAMINOPHEN 325 MG TABLET (FP) PO PRN (15:06)
--- NOTE | 2017-02-21 15:20 | HP ---
CHIEF COMPLAINT: right facial pain and numbness PCP: Dr. Román Lopes HISTORY OF PRESENT ILLNESS: This is a 36 year old female with PMHx of migraines, childhood epilepsy, who presented to the ED with 2 months of right facial pain and numbness with an episode of dizziness and shaking this morning. The patient reports having a root canal to #4 about 2 months ago and since then has reported right facial pain radiating to her periauricular area. She also reports right facial numbness began immediately following her root canal as well. She has had many ED visits since then and has been followed by her dentist. About 1 week ago she had tooth #4 removed and her symptoms resolved for 2 days. On day 3, she had "excruciating" right jaw pain with radiation to her periauricular area again. This morning she woke up and had dizziness which she describes as the room spinning. She also states she had some shaking at the time "like I did when I would have seizures as a kid". She recalls the whole event and denies any bladder or bowel incontinence. She states the facial numbness has persisted since the root canal. ER course was notable for: (1) Head CT negative (2) Temp 98.1, pulse 77, bp 121/86, resp 20, o2 100% on RA Recent Travel: denies PAST MEDICAL HISTORY: as above PAST SURGICAL HISTORY: denies Social History: Smoking: denies Alcohol: denies Drugs: denies Family History: Allergies No Known Allergies Allergy (Verified 02/21/17 07:39) HOME MEDICATIONS: Home Medications Medication Instructions Recorded Methylprednisolone [Medrol Dose 4 mg PO ASDIR 02/21/17 Tyson] REVIEW OF SYSTEMS CONSTITUTIONAL: Decrease in appetite 2/2 right mouth pain. Absent: fever, chills, diaphoresis, generalized weakness, malaise, weight change HEENT: S/p right tooth #4 removal 1 week ago, with now worsening pain. Absent: rhinorrhea, nasal congestion, throat pain, throat swelling, difficulty swallowing, mouth swelling, eye pain, visual changes CARDIOVASCULAR: Absent: chest pain, syncope, palpitations, irregular heart rate , lightheadedness, peripheral edema RESPIRATORY: Absent: cough, shortness of breath, dyspnea with exertion, orthopnea, wheezing, stridor, hemoptysis GASTROINTESTINAL:Absent: abdominal pain, abdominal distension, nausea, vomiting , diarrhea, constipation, melena, hematochezia GENITOURINARY: Absent: dysuria, frequency, urgency, hesitancy, hematuria, flank pain, genital pain MUSCULOSKELETAL: Pain radiating down the right neck x2 months. Absent: myalgia, arthralgia, joint swelling, back pain SKIN: Absent: rash, itching, pallor HEMATOLOGIC/IMMUNOLOGIC: Absent: easy bleeding, easy bruising, lymphadenopathy, frequent infections ENDOCRINE:Absent: unexplained weight gain, unexplained weight loss, heat intolerance, cold intolerance NEUROLOGIC: Absent: headache, focal weakness or paresthesias, dizziness, unsteady gait, seizure, mental status changes, bladder or bowel incontinence PSYCHIATRIC: Absent: anxiety, depression, suicidal or homicidal ideation, hallucinations. PHYSICAL EXAMINATION Vital Signs Period Temp Pulse Resp BP Sys/Xiong Pulse Ox Last 24 Hr 98.1 F 77 20 121/86 100 GENERAL: Awake, alert, and fully oriented, in no acute distress. HEAD: Normal with no signs of trauma. EYES: Pupils equal, round and reactive to light, extraocular movements intact, sclera anicteric, conjunctiva clear. No lid lag. EARS, NOSE, THROAT: Tooth #4 absent with bone exposure. No evidence of inflamed mucosa. Mucosa is pink and moist. No evidence of drainage. No facial swelling noted. + Halitosis. Ears normal, nares patent, oropharynx clear without exudates. Moist mucous membranes. NECK: Normal range of motion, supple without lymphadenopathy, JVD, or masses. LUNGS: Breath sounds equal, clear to auscultation bilaterally. No wheezes, and no crackles. No accessory muscle use. HEART: Regular rate and rhythm, normal S1 and S2 without murmur, rub or gallop. ABDOMEN: Soft, nontender, not distended, normoactive bowel sounds, no guarding, no rebound, no masses. No hepatomegaly or splenomegaly. MUSCULOSKELETAL: Normal range of motion at all joints. No bony deformities or tenderness. No CVA tenderness. UPPER EXTREMITIES: 2+ pulses, warm, well-perfused. No cyanosis. No clubbing. No peripheral edema. LOWER EXTREMITIES: 2+ pulses, warm, well-perfused. No calf tenderness. No peripheral edema. NEUROLOGICAL: Cranial nerves II-XII intact. Normal speech. Normal gait. PSYCHIATRIC: Cooperative. Good eye contact. Appropriate mood and affect. SKIN: Warm, dry, normal turgor, no rashes or lesions noted, normal capillary refill. CBCD WBC 6.4 K/mm3 (4.0-10.0) 02/21/17 08:30 RBC 4.36 M/mm3 (3.60-5.2) 02/21/17 08:30 Hgb 12.0 GM/dL (10.7-15.3) 02/21/17 08:30 Hct 36.4 % (32.4-45.2) 02/21/17 08:30 MCV 83.4 fl (80-96) 02/21/17 08:30 MCHC 33.0 g/dl (32.0-36.0) 02/21/17 08:30 RDW 17.5 % (11.6-15.6) H 02/21/17 08:30 Plt Count 205 K/MM3 (134-434) 02/21/17 08:30 MPV 8.5 fl (7.5-11.1) 02/21/17 08:30 CMP Sodium 138 mmol/L (136-145) 02/21/17 08:30 Potassium 4.0 mmol/L (3.5-5.1) 02/21/17 08:30 Chloride 106 mmol/L (98-107) 02/21/17 08:30 Carbon Dioxide 24 mmol/L (21-32) 02/21/17 08:30 Anion Gap 8 (8-16) 02/21/17 08:30 BUN 10 mg/dL (7-18) D 02/21/17 08:30 Creatinine 0.8 mg/dL (0.55-1.02) 02/21/17 08:30 Creat Clearance w eGFR > 60 (>60) 02/21/17 08:30 Random Glucose 88 mg/dL (74-106) 02/21/17 08:30 Calcium 8.3 mg/dL (8.5-10.1) L 02/21/17 08:30 Total Bilirubin 0.6 mg/dL (0.2-1.0) D 02/21/17 08:30 AST 11 U/L (15-37) L D 02/21/17 08:30 ALT 17 U/L (12-78) D 02/21/17 08:30 Alkaline Phosphatase 62 U/L (45-117) 02/21/17 08:30 Total Protein 7.3 g/dl (6.4-8.2) 02/21/17 08:30 Albumin 3.9 g/dl (3.4-5.0) 02/21/17 08:30 Assessment: This is a 36 year old female with PMHx of migraines, childhood epilepsy, who presented to the ED with 2 months of right facial pain and numbness with an episode of dizziness and shaking this morning Plan: 1) Right facial pain and numbness - x2 months - Had root canal to #4 2 months ago - #4 tooth extraction on 02/14/[address] Salmeron ([phone]) - Abscess? No WBCs or fever, did have some shaking this morning however. 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 Bone exposed - Frequent irrigation with saline solution syringe - F/u mandible x-ray to r/o foreight body at extraction site, bone destruction - Made appointment for the patient to see Dr. Rivas at 10am on 02/22/17 ( colleague of Dr. Salmeron) - Discussed with Dr. Hemphill who has recommended brain MRI - F/u neuro consult 2) Childhood epilepsy - Doubt shaking today was seizure, patient remembered the whole incident. No lapse in memory - No bowel or bladder incontinence - Last seizure 19 years ago - F/u neuro consult 3) F/E/N: - Regular diet 4) Prophylaxis: - OOB ambulating - SCDs bilaterally 5) Dispo: - Likely tomorrow AM - Made appointment for the patient to follow-up with dentist, Dr. Rivas ([phone]) at 10am on 02/22/17: [address] , [address] [place] [address] CODE STATUS: FULL CODE Visit type - Emergency Visit Emergency Visit: Yes ED Registration Date: 02/21/17 Care time: The patient presented to the Emergency Department on the above date and was hospitalized for further evaluation of their emergent condition. - New Patient This patient is new to me today: Yes Date on this admission: 02/21/17 - Critical Care Critical Care patient: No
[2017-02-21] MEDS ORDERED: IBUPROFEN 400 MG TABLET (FP) PO PRN (16:09)
--- NOTE | 2017-02-21 18:00 | CON.NEURO ---
Consult - History of Present Illness History of Present Illness: 36 year old female with PMHx of migraines, childhood epilepsy, who presented to the ED with 2 months of right facial pain and numbness with an episode of dizziness and shaking this morning. The patient reports having tooth pulled 2 months ago and since then has reported right facial pain radiating to her periauricular area. She also reports right facial numbness began immediately following her root canal as well. About 1 week ago she had tooth #4 removed -- she had "excruciating" right jaw pain with radiation to her periauricular area again. This morning she woke up and had dizziness which she describes as the room spinning. She also states she had some shaking at the time "like I did when I would have seizures as a kid". She recalls the whole event and denies any bladder or bowel incontinence. She states the facial numbness has persisted since the root canal. She states pain in the R P/T area that radiates to right ear and face; denies electric sensatiosn. HX of migraines but she feels this is different. not and no drugs. CT Impression: No evidence of a focal intracranial lesion or hemorrhage seen. Correlate clinically to determine further evaluation and follow-up - Past Medical History ...LMP: 06/03/15 - Alcohol/Substance Use Hx Alcohol Use: No - Smoking History Smoking history: Never smoked Have you smoked in the past 12 months: No Aproximately how many cigarettes per day: 0 Home Medications - Allergies Allergies/Adverse Reactions: Allergies Allergy/AdvReac Type Severity Reaction Status Date / Time No Known Allergies Allergy Verified 02/21/17 07:39 - Home Medications Home Medications: Ambulatory Orders Methylprednisolone [Medrol Dose Tyson] 4 mg PO ASDIR 02/21/17 Physical Exam-Neuro Vital Signs: Vital Signs Temperature 97.7 F 02/21/17 15:15 Pulse Rate 69 02/21/17 15:15 Respiratory Rate 18 02/21/17 15:15 Blood Pressure 120/77 02/21/17 15:15 O2 Sat by Pulse Oximetry (%) 95 02/21/17 15:15 Constitutional: Yes: Well Nourished, No Distress Labs: INR, PTT INR 1.06 (0.82-1.09) 02/21/17 08:30 - Neuro Exam Level Of Consciousness: Yes: Alert, Oriented to Person (EOMI, no ear lesions, VFF, no cervical LAD, no facial weakness, motor 5/5, reflexes symmetric ) Imaging - Results Cat Scan: Report Reviewed, Image Reviewed Problem List - Problems (1) Headache Code(s): R51 - HEADACHE Qualifiers: Headache type: unspecified Headache chronicity pattern: acute headache Intractability: intractable Qualified Code(s): R51 - Headache; R51 - Headache (2) Right facial numbness Code(s): R20.0 - ANESTHESIA OF SKIN Assessment/Plan Right sided POPE x 2 months, s/p dental procedure -- ? cause vs unrelated , PAroxysmal HEMICRANIA vs atypical migraine in differential; less likely a demyelinating plaque, though MS may present with trigeminal pain doubt this is related to a seizure phenomena agree with obtaining MRI BRAIN start indomethacin 50BID in meantime Dr Hemphill
[2017-02-21 18:32] LABS: URINE LEUK ESTERASE Negative (NEGATIVE)
[2017-02-21 20:41] VITALS: BMI 24.3
[2017-02-21] MEDS ORDERED: INDOMETHACIN 50 MG CAPSULE PO SCH (22:00)
[2017-02-22 07:54] LABS: MCH 28.6 pg (25.7-33.7); MCHC 34.5 g/dl (32.0-36.0); MEAN CELL VOLUME 82.9 fl (80-96); MEAN PLT VOLUME 9.1 fl (7.5-11.1); PLATELET COUNT 208 K/MM3 (134-434); WHITE BLOOD COUNT 4.3 K/mm3 (4.0-10.0)
[2017-02-22 07:56] LABS: ALBUMIN 3.4 g/dl (3.4-5.0); ANION GAP 10 (8-16); BILIRUBIN,TOTAL 0.6 mg/dL (0.2-1.0); CALCIUM 7.3 mg/dL (8.5-10.1); CO2 22 mmol/L (21-32); CREATININE 0.6 mg/dL (0.55-1.02); GLUCOSE,RANDOM 80 mg/dL (74-106); SGOT/AST 17 U/L (15-37); SGPT/ALT 24 U/L (12-78); TOT PROT 6.1 g/dl (6.4-8.2)
[2017-02-22 07:57] LABS: ALK PHOS 54 U/L (45-117)
--- NOTE | 2017-02-22 08:19 | DS ---
Physical Examination Vital Signs: Vital Signs Temperature 98.1 F 02/22/17 06:56 Pulse Rate 72 02/22/17 06:56 Respiratory Rate 20 02/22/17 06:56 Blood Pressure 112/65 02/22/17 06:56 O2 Sat by Pulse Oximetry (%) 100 02/21/17 18:26 Labs: CBC, BMP 02/22/17 06:00 02/22/17 06:00 Discharge Summary Reason For Visit: HEADACHE; RIGHT FACIAL NUMBNESS Current Active Problems Headache (Acute) Right facial numbness (Acute) Condition: Improved - Instructions Diet, Activity, Other Instructions: Please return to the ED with new, persistent, or worsening symptoms. Please follow-up with your primary care provider within 1 week. You are being discharged and instructed to go directly to your dentists office: You have an appointment scheduled with Dr. Rivas ([phone]) at 10am TODAY Address: [address] [place] [address] Referrals: Selin Concepcion [Primary Care Provider] - 1 Week Disposition: HOME - Home Medications Comprehensive Discharge Medication List: Ambulatory Orders Methylprednisolone [Medrol Dose Tyson] 4 mg PO ASDIR 02/21/17 Acetaminophen [Tylenol .Regular Strength -] 650 mg PO Q6H PRN #0 tablet Indomethacin [Indocin -] 50 mg PO BID #30 tab 02/22/17
[2017-02-22 09:35] VITALS: BP 104/70; PULSE 94; TEMP 98.3
== END 2017-02-22 09:45 | disposition home or self-care (01) ==
LOC: JER 07:39 → JERBED 14:01 → J6S 18:55
PROVIDERS: ADMIT Hospitalist; ATTEND Registered Nurse
PROC: 3E0333Z Introduction of Anti-inflammatory into Peripheral Vein, Percutaneous Approach (ICD-10-PCS; principal; 2017-02-21)
PROC: 3E033GC Introduction of Other Therapeutic Substance into Peripheral Vein, Percutaneous Approach (ICD-10-PCS; 2017-02-21)
PROC: 3E0337Z Introduction of Electrolytic and Water Balance Substance into Peripheral Vein, Percutaneous Approach (ICD-10-PCS; 2017-02-21)
DX: R51 Headache (principal); R20.0 Anesthesia of skin; Z86.69 Personal history of other diseases of the nervous system and sense organs
CPT/HCPCS: 36415; 70100-TC; 70450-TC; 70551-TC; 80053; 81003; 83735; 84100; 84703; 85025; 85027; 85610; 87086; 96361; 96374; 96375; 99285-25; G0378

== ENCOUNTER 2017-04-04 15:03 | Emergency (ER) | payer OTHER ==
--- NOTE | 2017-04-04 15:17 | PDOC ---
Rapid Medical Evaluation Chief Complaint: Sore Throat Time Seen by Provider: 04/04/17 15:14 Medical Evaluation: Allergies Allergy/AdvReac Type Severity Reaction Status Date / Time No Known Allergies Allergy Verified 04/04/17 15:14 04/04/17 15:16 The patient presents with a chief complaint of:ear pain and sore throat I have performed a brief in-person evaluation of this patient. Pertinent physical exam findings: no erythema to soft palate, tonsils 1+, vss I have ordered the following:none The patient will proceed to the ED for further evaluation. Discharge Disposition - Diagnosis Ear pain - Referrals - Patient Instructions - Post Discharge Activity
[2017-04-04 15:18] VITALS: BP 121/71; PULSE 70; TEMP 97.8; BMI 24.0
[2017-04-04] MEDS ORDERED: IBUPROFEN 400 MG TABLET (FP) PO ONE ×2 (16:34→16:43)
--- NOTE | 2017-04-04 16:45 | PDOC ---
History of Present Illness - General Chief Complaint: Sore Throat Stated Complaint: THROAT PAIN Time Seen by Provider: 04/04/17 15:14 History Source: Patient Exam Limitations: No Limitations - History of Present Illness Initial Comments: 04/04/17 16:35 Patient is a 36-year-old female history of epilepsy on zonisamide and citalopram. Presents with three days of sore throat, right ear pain with dysphagia. Denies fever, no cough. Allergies: No known allergies Family History: Non-contributory Social History: Denies smoking, alcohol use, or IVDU Vital signs on arrival are [notable for pulse of 96.] Review of Systems GENERAL/CONSTITUTIONAL: [No fever or chills. No weakness. No weight change.] HEAD, EYES, EARS, NOSE AND THROAT: [No change in vision. No ear pain or discharge. Sore throat and dysphagia ] CARDIOVASCULAR: [No chest pain or shortness of breath.] RESPIRATORY: [No cough, wheezing, or hemoptysis.] GASTROINTESTINAL: [No nausea, vomiting, diarrhea or constipation. No rectal bleeding.] GENITOURINARY: [No dysuria, frequency, or change in urination.] MUSCULOSKELETAL: [No joint or muscle swelling or pain. No neck or back pain.] SKIN AND BREASTS: [No rash or easy bruising.] NEUROLOGIC: [No headache, vertigo, loss of consciousness, or loss of sensation.] PSYCHIATRIC: [No depression or anxiety.] ENDOCRINE: [No increased thirst. No abnormal weight change.] HEMATOLOGIC/LYMPHATIC: [No anemia, easy bleeding, or history of blood clots.] ALLERGIC/IMMUNOLOGIC: [No hives or skin allergy. No latex allergy.] Physical Exam: GENERAL: [The patient is awake, alert, and fully oriented, in no acute distress. ] HEAD: [Normal with no signs of trauma.] EYES: [Pupils equal, round and reactive to light, extraocular movements intact, sclera anicteric, conjunctiva clear.] ENT: [Ears normal, nares patent, oropharynx erythematous without exudates. Moist mucous membranes. No uvula deviation] NECK: [Normal range of motion, supple without lymphadenopathy, JVD, or masses.] LUNGS: [Breath sounds equal, clear to auscultation bilaterally. No wheezes, and no crackles.] HEART: [Regular rate and rhythm, normal S1 and S2 without murmur, rub or gallop. ] ABDOMEN: [Soft, nontender, normoactive bowel sounds. No guarding, no rebound. No masses. No bruising or abrasions] MUSCULOSKELETAL: [Normal range of motion, no edema. No clubbing or cyanosis. No cords, erythema, or tenderness. No CVA Tenderness with fist.] NEUROLOGICAL: [Cranial nerves II through XII grossly intact. Normal speech, normal gait.] SKIN: [Warm, Dry, normal turgor, no rashes or lesions noted.] 04/04/17 16:36 Past History - Past Medical History Allergies/Adverse Reactions: Allergies Allergy/AdvReac Type Severity Reaction Status Date / Time No Known Allergies Allergy Verified 04/04/17 15:14 Home Medications: Ambulatory Orders Citalopram Hydrobromide [Citalopram HBr] 20 mg PO ASDIR 04/04/17 Zonisamide 50 mg PO ASDIR 04/04/17 COPD: No DVT: No Psychiatric Problems: Yes (anxiety) Seizures: Yes (childhood epilepsy) - Surgical History Abdominal Surgery: No Cholecystectomy: Yes - Immunization History Immunization Up to Date: Yes - Suicide/Smoking/Psychosocial Hx Smoking Status: No Smoking History: Never smoked Have you smoked in the past 12 months: No Number of Cigarettes Smoked Daily: 0 Information on smoking cessation initiated: No Hx Alcohol Use: No Drug/Substance Use Hx: No Substance Use Type: None *Physical Exam - Vital Signs Last Vital Signs Temp Pulse Resp BP Pulse Ox 97.8 F 70 14 121/71 100 04/04/17 15:14 04/04/17 15:14 04/04/17 15:14 04/04/17 15:14 04/04/17 15:14 Medical Decision Making - Medical Decision Making 04/04/17 16:45 A/P: Patient here for evaluation of sore throat with dysphagia rapid strep sent Motrin given awaiting results 04/04/17 17:59 Rapid strep is negative, and has a viral pharyngitis, patient states some relief of pain and throat after Motrin will DC patient home warm saltwater gargles, Motrin for pain, follow-up with PMD if symptoms persist in 2 days. I discussed the physical exam findings, ancillary test results and final diagnoses with the patient. I answered all of the patient's questions. The patient was satisfied with the care received and felt comfortable with the discharge plan and treatment plan. The patient will call to arrange follow-up and will return to the Emergency Department with any new, persistent or worsening symptoms. *DC/Admit/Observation/Transfer Diagnosis at time of Disposition: Viral pharyngitis - Discharge Dispostion Disposition: HOME Condition at time of disposition: Good Admit: No - Referrals Referrals: Darnell Law MD [Staff Physician] - - Patient Instructions Additional Instructions: 1. Increase fluid. 2. Pedialyte or Gatorade. 3. Please change toothbrush after symptoms resolve 4. Warm saltwater gargles. 5. Please follow up with PMD in 3 days if symptoms not resolving. 6. Please return to the ER unable to drink or eat, increased fever or other concerns Motrin for pain - Post Discharge Activity Forms/Work/School Notes: Back to Work
== END 2017-04-04 18:01 | disposition home or self-care (01) ==
LOC: JERFT 15:03
DX: J02.9 Acute pharyngitis, unspecified (principal); B97.89 Other viral agents as the cause of diseases classified elsewhere; Z86.69 Personal history of other diseases of the nervous system and sense organs
CPT/HCPCS: 87070; 87430; 99281-25

== ENCOUNTER → 2017-04-16 | Day surgery (SDC) | payer OTHER | END | disposition home or self-care (01) | LOC: JRADIR 08:52 | PROVIDERS: ATTEND Otolaryngology Facial Plastic Surgery | PROC: 0G9H3ZX Drainage of Right Thyroid Gland Lobe, Percutaneous Approach, Diagnostic (ICD-10-PCS; principal; 2017-04-16) | DX: E04.1 Nontoxic single thyroid nodule (principal) | CPT/HCPCS: 76942; 88173; 88305-TC ==

== ENCOUNTER 2017-08-28 09:08 | Emergency (ER) | payer OTHER ==
[2017-08-28 09:13] VITALS: TEMP 97.9; BMI 23.1
--- NOTE | 2017-08-28 09:19 | PDOC ---
History of Present Illness - General History Source: Patient Exam Limitations: No Limitations - History of Present Illness Initial Comments: 08/28/17 10:04 The patient is a 36 year old female, with a significant past medical history childhood epilepsy, anxiety, and migraines, who presents to the emergency department with a worsening right sided headache for approximately 3 days. The patient reports her headache is right sided and radiates into her right eye and right ear. She reports associated heaviness on the right side of her head. Patient states she has been unable to sleep the past 3 days secondary to headache. Patient reports taking Advil last night for her symptoms with minimal relief. The patient rates her headache a 10/10. She reports associated dizziness and subjective fever, but denies any chills, cough, nasal congestion, sore throat, or lightheadedness. Patient reports her symptoms different from her typical migraine. She denies any photophobia, tinnitus, changes in vision, neck or back pain.. She denies any abdominal pain, nausea, or vomiting. She denies any recent travel or sick contacts. Allergies: NKDA Past Surgical History: Cholecystectomy. 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 Non smoker. No ETOH or recreational drug use. Neurologist: Dr. Walker <Nkiko Arias - Last Filed: 08/28/17 10:13> - General History Source: Patient Exam Limitations: No Limitations <Isatu Cortes - Last Filed: 08/28/17 12:12> - General Chief Complaint: Headache Stated Complaint: HEADACHES, NAUSEA Time Seen by Provider: 08/28/17 09:18 Past History <Nikko Arias - Last Filed: 08/28/17 10:13> - Past Medical History COPD: No DVT: No Psychiatric Problems: Yes (anxiety) Seizures: Yes (childhood epilepsy) - Surgical History Abdominal Surgery: No Cholecystectomy: Yes - Immunization History Immunization Up to Date: Yes - Suicide/Smoking/Psychosocial Hx Smoking Status: No Smoking History: Never smoked Have you smoked in the past 12 months: No Number of Cigarettes Smoked Daily: 0 Hx Alcohol Use: No Drug/Substance Use Hx: No Substance Use Type: None <Isatu Cortes - Last Filed: 08/28/17 12:12> - Past Medical History Allergies/Adverse Reactions: Allergies Allergy/AdvReac Type Severity Reaction Status Date / Time No Known Allergies Allergy Verified 08/28/17 09:13 Home Medications: Ambulatory Orders Citalopram Hydrobromide [Citalopram HBr] 20 mg PO ASDIR 04/04/17 Zonisamide 50 mg PO ASDIR 04/04/17 Acetaminophen/Caffeine/Butalb [Fioricet -] 1 tablet PO BID PRN #15 tablet MDD 2 08/28/17 Neuro Specific PMHX - Complaint Specific PMHX Migraine: Yes <Isatu Cortes - Last Filed: 08/28/17 12:12> Review of Systems - Review of Systems Able to Perform ROS?: Yes Comments:: 08/28/17 10:04 CONSTITUTIONAL: +Fever. No chills, no fatigue EYES: No visual changes ENT: No ear pain, no sore throat, no nasal congestion CARDIOVASCULAR: No chest pain, no palpitations RESPIRATORY: No cough, no SOB GI: No abdominal pain, no nausea, no vomiting, no constipation, no diarrhea GENITOURINARY: No dysuria, no frequency, no hematuria MUSCULOSKELETAL: No back pain, no joint pain, no myalgias SKIN: No rash NEURO: +Headache, dizziness. No lightheadedness, no focal weakness, no numbness or tingling <Nikko Arias - Last Filed: 08/28/17 10:13> *Physical Exam - Vital Signs Last Vital Signs Temp Pulse Resp BP Pulse Ox 97.9 F 71 17 116/71 100 08/28/17 09:11 08/28/17 09:11 08/28/17 09:11 08/28/17 09:11 08/28/17 09:11 - Physical Exam Comments: 08/28/17 10:04 GENERAL: The patient is in no acute distress. HEAD: Normal with no signs of trauma. EYES: PERRLA, EOMI, sclera anicteric, conjunctiva clear. ENT: Ears normal, nares patent, oropharynx clear without exudates. Moist mucous membranes. NECK: Normal range of motion, supple without lymphadenopathy, JVD, or masses. LUNGS: Breath sounds equal, clear to auscultation bilaterally. No wheezes, and no crackles. HEART:Regular rate and rhythm, normal S1 and S2 without murmur, rub or gallop. ABDOMEN: Soft, nontender, normoactive bowel sounds. No guarding, no rebound. No masses palpable. EXTREMITIES: Normal range of motion, no edema. No clubbing or cyanosis. No erythema, or tenderness. NEUROLOGICAL: Cranial nerves II through XII grossly intact. Normal speech. No focal neurological deficits. Alert and orientedx3. MUSCULOSKELETAL: Back non-tender to palpation, no CVA tenderness SKIN: Warm, Dry, normal turgor, no rashes or lesions noted. <Nikko Arias - Last Filed: 08/28/17 10:13> - Vital Signs Last Vital Signs Temp Pulse Resp BP Pulse Ox 97.9 F 71 17 116/71 100 08/28/17 09:11 08/28/17 09:11 08/28/17 09:11 08/28/17 09:11 08/28/17 09:11 <Isatu Cortes - Last Filed: 08/28/17 12:12> ED Treatment Course - LABORATORY CBC & Chemistry Diagram: 08/28/17 09:45 08/28/17 09:45 - Medications Given in the ED: ED Medications Discontinued Medications Generic Name Dose Route Start Last Admin Trade Name Babatunde PRN Reason Stop Dose Admin Ketorolac Tromethamine 30 mg 08/28/17 09:21 08/28/17 09:58 Toradol Injection - IVPUSH 08/28/17 09:22 30 mg ONCE ONE Administration Metoclopramide HCl 10 mg 08/28/17 09:31 08/28/17 09:59 Reglan Injection - IVPUSH 08/28/17 09:32 10 mg ONCE ONE Administration <Nikko Arias - Last Filed: 08/28/17 10:13> - LABORATORY CBC & Chemistry Diagram: 08/28/17 09:45 08/28/17 09:45 <Isatu Cortes - Last Filed: 08/28/17 12:12> Medical Decision Making - Medical Decision Making Ms Raymond is a 36 yo F with a history of epilepsy and migraines followed by dr. walker Pt states she has had a headache for the past year In the past 3 days, her headache has worsened to the point that she could not sleep No head trauma (+) photophobia pt states this is different from her prior migraines though it is described similarly to her prior visits Pt examination: NEURO: Mental status: The patient is oriented x3. Cranial nerves: Cranial nerves II through XII are intact Motor: The upper extremities are 5 over 5 in all muscle groups. The lower extremities are 5 over 5 in all muscle groups. Sensation: Sensation is intact to light touch throughout. Cerebellar: Aazpzd-eyeioc-ypls is normal in both upper extremities. Heel-knee- grigsby is normal in both lower extremities. Reflexes: 2+ and symmetric in the upper and lower extremities. Gait: Normal. Heel and toe walking are normal. Tandem gait is normal. 08/28/17 10:48 Laboratory Tests 08/28/17 08/28/17 08/28/17 09:45 09:45 09:45 WBC 5.3 Hgb 11.5 Hct 33.9 Plt Count 252 D Sodium 141 Potassium 3.8 Chloride 107 Carbon Dioxide 25 BUN 11 Creatinine 0.7 Random Glucose 86 Serum , Qual Negative 08/28/17 12:05 Upon re assessment, pt states she feels much better Headache resolved Will discharge to home Will ask pt to follow up with Neurologist specifically regarding her headaches Clinical Impression: migraine headaches, initial presentation <Isatu Cortes - Last Filed: 08/28/17 12:12> *DC/Admit/Observation/Transfer - Attestations Scribe Attestion: 08/28/17 10:05 Documentation prepared by Nikko Arias, acting as medical chemist for Isatu Cortes MD. <Nikko Arias - Last Filed: 08/28/17 10:13> - Discharge Dispostion Admit: No <Isatu Cortes - Last Filed: 08/28/17 12:12> Diagnosis at time of Disposition: Migraine Qualifiers: Migraine type: other Status migrainosus presence: without status migrainosus Intractability: not intractable Qualified Code(s): G43.809 - Other migraine, not intractable, without status migrainosus - Discharge Dispostion Disposition: HOME Condition at time of disposition: Stable - Referrals Referrals: Shobha Walker MD [Staff Physician] - - Patient Instructions Printed Discharge Instructions: DI for Migraine Additional Instructions: Ms Raymond Italo por venir a la loreta de emergencia hoy Por favor tome Excedrin Migraine cuando medel dolor de reyna sea de leve a moderado. Si medel dolor de reyna es kevin, puede pepe la enfermedad de Fioricet (esta receta). Asegrese de consultar con medel neurlogo especficamente sobre los tratamientos alternativos para jignesh migraas. Por favor regrese al departamento de emergencias por cualquier otra inquietud o queja Thank you for coming in to the ER today Please take Excedrin Migraine when your headache is mild to moderate. If your headache is severe, you can take Fioricet (this prescription) disease. Please be sure to follow up with your neurologist specifically regarding alternative treatments for your migraine headaches. Please is return to the emergency department for any other concerns or complaints Print Language: LITHUANIAN - Post Discharge Activity Forms/Work/School Notes: Back to Work
[2017-08-28] MEDS ORDERED: KETOROLAC TROMETHAMINE 30 MG/1 ML VIAL IVPUSH ONE (09:21)
[2017-08-28] MEDS ORDERED: SODIUM CHLORIDE 1,000 ML IV STA (09:31)
[2017-08-28] MEDS ORDERED: METOCLOPRAMIDE HCL INJECTION 10 MG/2 ML VIAL IVPUSH ONE (09:31)
[2017-08-28] MEDS ORDERED: KETOROLAC TROMETHAMINE 30 MG/1 ML VIAL ONE (09:41)
[2017-08-28] MEDS ORDERED: METOCLOPRAMIDE HCL INJECTION 10 MG/2 ML VIAL ONE (09:41)
[2017-08-28 09:59] LABS: BASO % 1.3 % (0-2.0); EOS % 1.6 % (0-4.5); HEMATOCRIT 33.9 % (32.4-45.2); HEMOGLOBIN 11.5 GM/dL (10.7-15.3); LYMPH % 23.9 % (8-40); MCH 28.2 pg (25.7-33.7); MCHC 33.9 g/dl (32.0-36.0); MEAN CELL VOLUME 83.3 fl (80-96); MEAN PLT VOLUME 7.8 fl (7.5-11.1); MONO % 10.2 % (3.8-10.2); PLATELET COUNT 252 K/MM3 (134-434); RBC 4.07 M/mm3 (3.60-5.2); RDW 16.6 % (11.6-15.6); WHITE BLOOD COUNT 5.3 K/mm3 (4.0-10.0)
[2017-08-28 10:26] LABS: ANION GAP 9 (8-16); BLOOD UREA NITROGEN 11 mg/dL (7-18); CALCIUM 8.6 mg/dL (8.5-10.1); CHLORIDE 107 mmol/L (98-107); CO2 25 mmol/L (21-32); CREATININE 0.7 mg/dL (0.55-1.02); GLUCOSE,RANDOM 86 mg/dL (74-106); POTASSIUM 3.8 mmol/L (3.5-5.1); SODIUM 141 mmol/L (136-145)
[2017-08-28 12:19] VITALS: BP 117/69; PULSE 72
== END 2017-08-28 12:19 | disposition home or self-care (01) ==
LOC: JER 09:08
PROC: 3E0333Z Introduction of Anti-inflammatory into Peripheral Vein, Percutaneous Approach (ICD-10-PCS; principal; 2017-08-28)
PROC: 3E033GC Introduction of Other Therapeutic Substance into Peripheral Vein, Percutaneous Approach (ICD-10-PCS; 2017-08-28)
PROC: 3E0337Z Introduction of Electrolytic and Water Balance Substance into Peripheral Vein, Percutaneous Approach (ICD-10-PCS; 2017-08-28)
DX: G43.809 Other migraine, not intractable, without status migrainosus (principal); F41.9 Anxiety disorder, unspecified
CPT/HCPCS: 36415; 80048; 84703; 85025; 96361; 96374; 96375; 99282-25; J7030

== ENCOUNTER 2018-05-26 09:30 | Emergency (ER) | payer OTHER ==
[2018-05-26 09:44] VITALS: BP 111/56; PULSE 67; TEMP 97.7; BMI 25.8
--- NOTE | 2018-05-26 10:31 | PDOC ---
Attending Attestation - Resident Resident Name: Milton Arvizu - ED Attending Attestation I have performed the following: I have examined & evaluated the patient, The case was reviewed & discussed with the resident, I agree w/resident's findings & plan, Exceptions are as noted - HPI HPI: 05/26/18 10:30 37y F presents with 2 weeks of left sided abd pain and presents with bleeding and dysuria from her pelvic region is constant in nature no diarrhea lmp apr 30
[2018-05-26 11:45] LABS: BASO % 1.1 % (0-2.0); EOS % 1.1 % (0-4.5); HEMATOCRIT 34.7 % (32.4-45.2); HEMOGLOBIN 11.4 GM/dL (10.7-15.3); LYMPH % 22.3 % (8-40); MCH 25.8 pg (25.7-33.7); MCHC 32.9 g/dl (32.0-36.0); MEAN CELL VOLUME 78.4 fl (80-96); MEAN PLT VOLUME 8.3 fl (7.5-11.1); MONO % 7.8 % (3.8-10.2); NEUT % 67.7 % (42.8-82.8); PLATELET COUNT 297 K/MM3 (134-434); RBC 4.42 M/mm3 (3.60-5.2); RDW 16.9 % (11.6-15.6); WHITE BLOOD COUNT 4.5 K/mm3 (4.0-10.0)
[2018-05-26 11:51] LABS: URINE APPEARANCE CLEAR; URINE BILIRUBIN NEGATIVE (<2.0 mg/dL); URINE COLOR STRAW; URINE GLUCOSE (UA) NEGATIVE (NEGATIVE); URINE KETONE NEGATIVE (NEGATIVE); URINE LEUK ESTERASE NEGATIVE (NEGATIVE); URINE NITRITE NEGATIVE (NEGATIVE); URINE PROTEIN NEGATIVE (NEGATIVE); URINE UROBILINOGEN NEGATIVE mg/dL (0.2-1.0)
[2018-05-26 11:54] LABS: HCG,QUALITATIVE URINE Negative
--- NOTE | 2018-05-26 11:57 | PDOC ---
History of Present Illness - General Chief Complaint: Pain, Acute Stated Complaint: ABD PAIN Time Seen by Provider: 05/26/18 10:11 History Source: Patient Exam Limitations: Language Barrier (phone int used) - History of Present Illness Initial Comments: 05/26/18 11:53 Patient is a 37F with history of here today complaining of two weeks of left side pain that radiates to her suprapubic area. Endorses pain with urination. Patient reports associated bleeding, although she is not sure if it is coming from her rectum or vaginal, blood is bright red. No fevers, chills, vomiting. +Nausea. No chest pain or shortness of breath. LMP on 04/30. Past History - Past Medical History Allergies/Adverse Reactions: Allergies Allergy/AdvReac Type Severity Reaction Status Date / Time No Known Allergies Allergy Verified 12/12/17 18:07 COPD: No DVT: No Psychiatric Problems: Yes (anxiety) Seizures: Yes (childhood epilepsy) - Surgical History Abdominal Surgery: No Cholecystectomy: Yes - Immunization History Immunization Up to Date: Yes - Suicide/Smoking/Psychosocial Hx Smoking Status: No Smoking History: Never smoked Have you smoked in the past 12 months: No Number of Cigarettes Smoked Daily: 0 Hx Alcohol Use: No Drug/Substance Use Hx: No Substance Use Type: None Review of Systems - Review of Systems Comments:: 05/26/18 11:56 GENERAL/CONSTITUTIONAL: No fever or chills. No weakness. HEAD, EYES, EARS, NOSE AND THROAT: No change in vision. No sore throat. CARDIOVASCULAR: No chest pain or shortness of breath RESPIRATORY: No cough, wheezing, or hemoptysis. GASTROINTESTINAL: +nausea, no vomiting, diarrhea or constipation. GENITOURINARY: +dysuria, no frequency, or change in urination. MUSCULOSKELETAL: No joint or muscle swelling or pain. No neck or back pain. SKIN: No rash NEUROLOGIC: No headache, vertigo, loss of consciousness, or change in strength/ sensation. ENDOCRINE: No increased thirst. No abnormal weight change HEMATOLOGIC/LYMPHATIC: No anemia, easy bleeding, or history of blood clots. ALLERGIC/IMMUNOLOGIC: No hives or skin allergy. *Physical Exam - Vital Signs Last Vital Signs Temp Pulse Resp BP Pulse Ox 97.7 F 67 18 111/56 L 100 05/26/18 09:43 05/26/18 09:43 05/26/18 09:43 05/26/18 09:43 05/26/18 09:43 - Physical Exam Comments: 05/26/18 11:57 GENERAL: Awake, alert, and fully oriented, in no acute distress HEAD: No signs of trauma, normocephalic, atraumatic EYES: PERRLA, EOMI, sclera anicteric, conjunctiva clear ENT: Auricles normal inspection, hearing grossly normal, nares patent, oropharynx clear without exudates. Moist mucosa NECK: Normal ROM, supple, no lymphadenopathy, JVD, or masses LUNGS: No distress, speaks full sentences, clear to auscultation bilaterally HEART: Regular rate and rhythm, normal S1 and S2, no murmurs, rubs or gallops, peripheral pulses normal and equal bilaterally. ABDOMEN: +suprapubic pain and l cva tenderness. No guarding, no rebound. No masses EXTREMITIES: Normal inspection, Normal range of motion, no edema. No clubbing or cyanosis. NEUROLOGICAL: Cranial nerves II through XII grossly intact. Normal speech, normal gait, no focal sensorimotor deficits SKIN: Warm, Dry, normal turgor, no rashes or lesions noted. PELVIC: Normal external genitalia, no blood in vaginal vault, no cmt, small amount of white discharge, no adnexal tenderness RECTAL: Small hemorrhoid, no blood, normal tone, no masses. Moderate Sedation - Procedure Monitoring Vital Signs: Procedure Monitoring Vital Signs Temperature 97.7 F 05/26/18 09:43 Pulse Rate 67 05/26/18 09:43 Respiratory Rate 18 05/26/18 09:43 Blood Pressure 111/56 L 05/26/18 09:43 O2 Sat by Pulse Oximetry (%) 100 05/26/18 09:43 ED Treatment Course - LABORATORY CBC & Chemistry Diagram: 05/26/18 11:30 05/26/18 11:30 - ADDITIONAL ORDERS Additional order review: Laboratory Results 05/26/18 11:14 Stool Occult Blood Negative 05/26/18 11:30 RBC 4.42 MCV 78.4 L MCHC 32.9 RDW 16.9 H MPV 8.3 Neutrophils % 67.7 Lymphocytes % 22.3 Monocytes % 7.8 Eosinophils % 1.1 Basophils % 1.1 - RADIOLOGY Radiology Studies Ordered: Category Date Time Status TRANSVAGINAL ULTRASOUND US [US] Stat Ultrasound 05/26/18 11:10 Ordered Medical Decision Making - Medical Decision Making 05/26/18 12:00 Patient is 37F here today with suprapubic pain, dysuria, l flank pain, reports of vaginal/rectal bleeding. No bleeding on exam. Vitals normal and stable. DDx includes, but is not limited to: , uti, dysmenorrhea. Will evaluate with cbc, cmp, lipase, ua/uc, tvus. 05/26/18 13:07 CBC normal. CMP hemolyzed. UA clear. Patient states that pain has resolved. Preg neg. Will discharge home with return precautions. *DC/Admit/Observation/Transfer Diagnosis at time of Disposition: Flank pain - Discharge Dispostion Disposition: HOME Condition at time of disposition: Good Decision to Admit order: No - Referrals - Patient Instructions Printed Discharge Instructions: DI for Flank Pain Additional Instructions: Please follow up with your primary care doctor this week. Please return if you have any new, worsening or concerning symptoms, especially increasing pain, bleeding and fever. Por favor joseph un seguimiento con medel mdico de atencin primaria esta semana. Regrese si tiene algn sntoma nuevo, que empeora o que se relaciona con l, especialmente el aumento del dolor, el sangrado y la fiebre. - Post Discharge Activity
== END 2018-05-26 13:18 | disposition home or self-care (01) ==
LOC: JER 09:30
DX: R10.32 Left lower quadrant pain (principal)
CPT/HCPCS: 36415; 76830-TC; 81003; 82272; 84703; 85025; 87086; 99282-25

== ENCOUNTER 2018-07-21 12:47 | Emergency (ER) | payer OTHER ==
[2018-07-21 12:57] VITALS: BP 107/82; PULSE 51; TEMP 97.6; BMI 24.2
[2018-07-21] MEDS ORDERED: MECLIZINE HCL 25 MG TABLET (FP) PO ONE (14:52)
[2018-07-21] MEDS ORDERED: RANITIDINE HCL 150 MG TABLET (FP) PO ONE (14:52)
[2018-07-21] MEDS ORDERED: RANITIDINE HCL 150 MG TABLET (FP) ONE (14:54)
[2018-07-21] MEDS ORDERED: MECLIZINE HCL 25 MG TABLET (FP) ONE (14:55)
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
[2018-07-21] MEDS ORDERED: MAG HYDROX/AL HYDROX/SIMETH 30 ML UNIT-DOSE CUP PO ONE (15:12)
[2018-07-21] MEDS ORDERED: MAG HYDROX/AL HYDROX/SIMETH 30 ML UNIT-DOSE CUP ONE (15:14)
== END 2018-07-21 17:21 | disposition home or self-care (01) ==
LOC: JERFT 12:47
DX: K21.9 Gastro-esophageal reflux disease without esophagitis (principal); R42 Dizziness and giddiness; V43.52XA Car driver injured in collision with other type car in traffic accident, initial encounter; Y92.488 Other paved roadways as the place of occurrence of the external cause; Y93.89 Activity, other specified; Y99.8 Other external cause status
CPT/HCPCS: 70450-TC; 84703; 99281-25

== ENCOUNTER 2018-10-15 09:27 | Day surgery (SDC) | payer OTHER ==
[2018-10-10 12:02] VITALS: BMI 23.9
[2018-10-15] MEDS ORDERED: PROPOFOL 20 ML ONE ×2 (10:52)
[2018-10-15] MEDS ORDERED: LIDOCAINE HCL/PF 2% SDV 5ML VIAL ONE (10:52)
[2018-10-15 11:28] VITALS: TEMP 97.9
[2018-10-15 14:21] VITALS: BP 104/69; PULSE 72
--- NOTE | 2018-10-17 16:06 | PATH ---
Surgical Pathology Report Patient Name: ISREAL BORRERO [facility]. Rec. #: [id number] /Age/Gender: 1980 (Age: 38) / F Account: [id number] Location: [facility] Taken: 10/15/2018 Received: 10/15/2018 Reported: 10/17/2018 Physicians: Selin Roger M.D. Specimen(s) Received A: SECOND PORTION DUODENUM B: ANTRUM C: GASTRIC BODY POLYPS D: GE JUNCTION Clinical History GERD Postoperative diagnosis: Gastritis, gastric polyps Final Diagnosis A. SECOND PORTION DUODENUM, BIOPSY: DUODENUM MUCOSA WITH NO SIGNIFICANT PATHOLOGIC CHANGE. NO HISTOLOGIC EVIDENCE OF CELIAC DISEASE. B. GASTRIC ANTRUM, BIOPSY: GASTRIC MUCOSA WITH CHRONIC GASTRITIS. IMMUNOSTAIN FOR H. PYLORI IS NEGATIVE. NEGATIVE FOR INTESTINAL METAPLASIA. C. GASTRIC BODY POLYPS, BIOPSY: FUNDIC GLAND POLYPS. IMMUNOSTAIN FOR H. PYLORI IS NEGATIVE. NEGATIVE FOR INTESTINAL METAPLASIA. D. GE JUNCTION, BIOPSY: GASTRIC MUCOSA WITH MILD CHRONIC INFLAMMATION. NEGATIVE FOR INTESTINAL METAPLASIA. Electronically Signed Bonny Bonilla M.D. Gross Description A. Received in formalin, labeled "biopsy second portion of duodenum" are 2 orosco, irregular portions of soft tissue measuring 0.2 and 0.4 cm. in greatest dimension. The specimens are submitted in toto in one cassette. B. Received in formalin, labeled "biopsy gastric antrum" is a orosco, irregular portion of soft tissue measuring 0.4 cm. in greatest dimension. The specimen is submitted in toto in one cassette. C. Received in formalin, labeled "biopsy gastric body polyps" are 3 orosco, irregular portions of soft tissue ranging from 0.2-0.5 cm. in greatest dimension. The specimens are submitted in toto in one cassette. D. Received in formalin, labeled "biopsy GE junction" is a orosco, irregular portion of soft tissue measuring 0.4 cm. in greatest dimension. The specimen is submitted in toto in one cassette. 10/16/2018 [facility]10/16/2018
== END 2018-10-15 11:55 | disposition home or self-care (01) ==
LOC: FASU-ENDO 09:27
PROVIDERS: ATTEND Internal Medicine Gastroenterology
PROC: 0DB68ZX Excision of Stomach, Via Natural or Artificial Opening Endoscopic, Diagnostic (ICD-10-PCS; 2018-10-15)
PROC: 0DB48ZX Excision of Esophagogastric Junction, Via Natural or Artificial Opening Endoscopic, Diagnostic (ICD-10-PCS; 2018-10-15)
PROC: 0DB98ZX Excision of Duodenum, Via Natural or Artificial Opening Endoscopic, Diagnostic (ICD-10-PCS; principal; 2018-10-15 11:09)
DX: K29.50 Unspecified chronic gastritis without bleeding (principal); K20.9 Esophagitis, unspecified; K31.7 Polyp of stomach and duodenum; R10.9 Unspecified abdominal pain
CPT/HCPCS: 84703; 88305-TC; 88342-TC

== ENCOUNTER 2019-01-19 09:25 | Emergency (ER) | payer OTHER ==
[2019-01-19 10:28] VITALS: BMI 26.6
--- NOTE | 2019-01-19 11:05 | PDOC ---
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 States sx feel exactly the same as prior episodes of vertigo usually improved by 25mg of Meclizine and pt took it this AM 0630 without improvement. Prescription for 25mg Meclizine 4x/day as needed. Symptoms improving, but pt was concerned because vertigo is normally accompanied by migraine but pt did not have migraine today. States episode of combined vertigo and headache occur approximately 1x/week for past 2 years. Denies vomiting, fever, chills, abdominal pain, difficulty walking, difficulty speaking, tinnitus, hearing loss, headache, chest pain, palpitations, FHx of early CAD, syncope, seizure, calf tenderness, leg swelling, hx DVTs/PE, recent surgery, recent travel, estrogen use, malignancy, cough, blood in stool, diarrhea, constipation, dysuria, hematuria. Past History - Past Medical History Allergies/Adverse Reactions: Allergies Allergy/AdvReac Type Severity Reaction Status Date / Time No Known Allergies Allergy Verified 01/19/19 10:28 Home Medications: Ambulatory Orders NK [No Known Home Medication] 10/10/18 Anemia: Yes Asthma: No Cancer: No Cardiac Disorders: No CVA: No COPD: No CHF: No DVT: No Dementia: No Diabetes: No GI Disorders: Yes (REFUX) Disorders: No HTN: No Hypercholesterolemia: No Liver Disease: No Psychiatric Problems: Yes (anxiety) Seizures: Yes (childhood epilepsy-last seizure 21 yrs ago) Thyroid Disease: No - Surgical History Abdominal Surgery: No Appendectomy: No Cardiac Surgery: No Cholecystectomy: Yes Lung Surgery: No Neurologic Surgery: No Orthopedic Surgery: No - Immunization History Immunization Up to Date: Yes - Psycho Social/Smoking Cessation Hx Smoking Status: No Smoking History: Never smoked Have you smoked in the past 12 months: No Number of Cigarettes Smoked Daily: 0 Information on smoking cessation initiated: No Hx Alcohol Use: No Drug/Substance Use Hx: No Substance Use Type: None Hx Substance Use Treatment: No Review of Systems - Review of Systems Comments:: 01/19/19 13:39 Constitutional: Positive for fatigue. Negative for chills, fever. HENT: Negative for sore throat, rhinorrhea, congestion. Eyes: Negative for visual disturbance. Respiratory: Negative for shortness of breath, cough, and wheezing. Cardiovascular: Negative for chest pain, palpitations, and leg swelling. Gastrointestinal: Positive for nausea. Negative for abdominal pain, blood in stool, constipation, diarrhea, and vomiting. Genitourinary: Negative for dysuria, flank pain, and hematuria. Musculoskeletal: Negative for myalgias, back pain, and neck pain. Skin: Negative for rash. Neurological: Positive for vertigo and light-headedness. Negative for syncope, weakness, numbness and headache. Psychiatric/Behavioral: Negative for behavioral problems and confusion. *Physical Exam - Vital Signs Last Vital Signs Temp Pulse Resp BP Pulse Ox 98 F 67 19 125/75 98 01/19/19 10:27 01/19/19 10:27 01/19/19 10:27 01/19/19 10:27 01/19/19 10:27 - Physical Exam Comments: 01/19/19 13:39 Gen: Alert, NAD, comfortable-appearing. HEENT: PERRL, EOMI, MMM, NCAT. No conjunctival pallor. Sclera are non-icteric. Oropharynx is clear. CV: Regular rate and rhythm. No murmurs, rubs, or gallops. PULM: No resp distress. CTAB, no wheezes, rales, or rhonchi. ABD: soft, NT/ND, no rebound tenderness or guarding, no CVA tenderness. BACK: No TTP of c/t/l-spine. No step-offs or deformities. MSK: No bony deformities. 2+ pulses in all extremities. NEURO: AAOx3. PERRL. CN 2-12 intact. 5/5 strength in all extremities. Sensation to light touch intact in all extremities. No pronator drift. No dysmetria. No dysdiadochokinesia. No abnormal nystagmus. No skew deviation. Normal gait. EXTREMITIES: No cyanosis. No clubbing. No edema. No calf tenderness. PSYCH: Normal mood and thought pattern. SKIN: Warm and dry. Normal capillary refill. No rashes. No jaundice. Heart Score/ECG Review - ECG Impressions Comment:: 01/19/19 14:05 NSR, 62bpm, QTc 458ms, normal axis, no TWI, no ST elevations or depressions. No evidence of arrythmia, ischemia, Bgxb-Ukyxyzcpe-Woblq (delta wave), Lown-Ganong- Pierce (shortened NV interval), Brugada syndrome, long or short QT interval, HOCM. 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 Symptoms improving, but pt was concerned because vertigo is normally accompanied by migraine but pt did not have migraine today; otherwise presentation consistent with chronic condition. Hemodynamically stable, afebrile , neurologically intact. Vertigo most likely acute on chronic BPPV - tx with fluids, meclizine, and reglan. No nystagmus, gait abnormalities, or dysdiadochokinesia concerning for central etiology of vertigo such as cerebellar stroke; no nystagmus at this time so HiNTS exam not indicated; no further testing indicated at this time. No hearing loss or tinnitus indicating labyrinthitis, meniere's disease, or CN VIII tumor. "Lightheadedness" most likely associated with vertigo, but also consider other etiologies. No headache concerning for SAH, meningitis, or other intracranial etiology. Low concern for cardiac etiology due to lack of CP, palpitations, FHx, or syncope, and pre-trop HEART score 1, but assess and r/o ACS/PR or arrythmias (WPW, LGL, Brugada, long/ short QT interval, HOCM) with cardiac profile and EKG. Wells 0, PERC rules out PE - no further testing indicated for PE. Also consider infectious etiologies, anemia, , thyroid abnormalities, or metabolic derangements - r/o w/CMP , CBC, Mg, Phos, TSH, and serum . No seizure-like activity. -CBC, CMP, Mg, Phos, TSH, cardiac profile, serum preg -EKG -1L IVF, Meclizine, Reglan -Dispo: pending w/u and reassessment 01/19/19 14:01 Labs reviewed. No concerning findings. Pt feels better s/p medications and fluid. Denies any current sx including vertigo and headache. EKG reviewed. NSR. No evidence of arrythmia, ischemia, Pnzw-Kwzdfmtrt-Elfag ( delta wave), Clwe-Sgpoxg-Ruhmee (shortened NV interval), Brugada syndrome, long or short QT interval, HOCM. Will dc home with PCP f/u. Return precautions given. Pt understands all dc instructions and all questions were answered. *DC/Admit/Observation/Transfer Diagnosis at time of Disposition: Vertigo - Discharge Dispostion Disposition: HOME Condition at time of disposition: Improved Decision to Admit order: No - Referrals Referrals: Millicent Vázquez [Primary Care Provider] - - Patient Instructions Printed Discharge Instructions: DI for Vertigo Additional Instructions: You have been seen in the Emergency Department for your vertigo. Your EKG and labs show no signs concerning for an emergent condition such as a heart attack, abnormal heart rhythm, anemia, or infection. Your vertigo resolved with hydration and medications. The cause of your episode is uncertain but it was most likely an exacerbation of your chronic vertigo. Follow-up with your primary care doctor within 1 week for further evaluation and check-up. Return to the ED immediately if you experience vision changes, difficulty walking or talking, chest pain, difficulty breathing, dizziness, fainting, vomiting, or any other new or worsening symptom. Te carvalho visto en el departamento de emergencias por vrtigo. Anna EKG y jignesh laboratorios no muestran signos de michell afeccin emergente, eugenie un ataque cardaco, ritmo cardaco anormal, anemia o infeccin. Anna vrtigo se resolvi con hidratacin y medicamentos. La causa de anna episodio es incierta, emilie probablemente fue michell exacerbacin de anna vrtigo crnico. Destiny un seguimiento con anna mdico de atencin primaria dentro de 1 semana para michell evaluacin y chequeo adicionales. Regrese al servicio de urgencias de inmediato si experimenta cambios en la visin, dificultad para caminar o hablar, dolor en el pecho, dificultad para respirar, mareos, desmayos, vmitos o cualquier otro sntoma nuevo o que empeora. - Post Discharge Activity Forms/Work/School Notes: Back to Work Discharge - Discharge Information Problems reviewed: Yes Clinical Impression/Diagnosis: Vertigo Condition: Improved Disposition: HOME - Admission No - Follow up/Referral Referrals: Millicent Vázquez [Primary Care Provider] - - Patient Discharge Instructions Patient Printed Discharge Instructions: DI for Vertigo Additional Instructions: You have been seen in the Emergency Department for your vertigo. Your EKG and labs show no signs concerning for an emergent condition such as a heart attack, abnormal heart rhythm, anemia, or infection. Your vertigo resolved with hydration and medications. The cause of your episode is uncertain but it was most likely an exacerbation of your chronic vertigo. Follow-up with your primary care doctor within 1 week for further evaluation and check-up. Return to the ED immediately if you experience vision changes, difficulty walking or talking, chest pain, difficulty breathing, dizziness, fainting, vomiting, or any other new or worsening symptom. Te carvalho visto en el departamento de emergencias por vrtigo. Anna EKG y jignesh laboratorios no muestran signos de michell afeccin emergente, eugenie un ataque cardaco, ritmo cardaco anormal, anemia o infeccin. Anna vrtigo se resolvi con hidratacin y medicamentos. La causa de anna episodio es incierta, emilie probablemente fue michell exacerbacin de anna vrtigo crnico. Destiny un seguimiento con anna mdico de atencin primaria dentro de 1 semana para michell evaluacin y chequeo adicionales. Regrese al servicio de urgencias de inmediato si experimenta cambios en la visin, dificultad para caminar o hablar, dolor en el pecho, dificultad para respirar, mareos, desmayos, vmitos o cualquier otro sntoma nuevo o que empeora. - Post Discharge Activity Work/Back to School Note: Back to Work
[2019-01-19] MEDS ORDERED: METOCLOPRAMIDE HCL INJECTION 10 MG/2 ML VIAL IVPB ONE (11:35)
[2019-01-19] MEDS ORDERED: SODIUM CHLORIDE 0.9% 500 ML INFUS.BAG IV ONE (11:35)
[2019-01-19] MEDS ORDERED: MECLIZINE HCL 25 MG TABLET (FP) PO ONE (11:36)
[2019-01-19] MEDS ORDERED: METOCLOPRAMIDE HCL INJECTION 10 MG/2 ML VIAL ONE ×2 (12:01→12:50)
[2019-01-19] MEDS ORDERED: MECLIZINE HCL 25 MG TABLET (FP) ONE (12:01)
--- NOTE | 2019-01-19 12:44 | PDOC ---
Documentation entered by Gibran Colorado SCRIBE, acting as scribe for Don Horton MD. Don Horton MD: This documentation has been prepared by the Stanislav paez Daniel, SCRIBE, under my direction and personally reviewed by me in its entirety. I confirm that the documentation accurately reflects all work, treatment, procedures, and medical decision making performed by me. Attending Attestation - Resident Resident Name: Bria Hoang - ED Attending Attestation I have performed the following: I have examined & evaluated the patient, The case was reviewed & discussed with the resident, I agree w/resident's findings & plan, Exceptions are as noted - HPI HPI: 01/19/19 12:38 The patient is a 38 year old female with a past medical history of vertigo, migraines and GERD here today for evaluation of vertigo. The patient reports that she began to feel room spinning dizziness around 7:30 this morning and notes associated nausea. She states that this feels like her usual episodes of vertigo except she usually gets a headache which she denies having now. Patient took 1 meclizine this morning with minimal relief. Patient denies headache, focal weakness/numbness. Denies fever, chills, stiff neck. Denies chest pain, shortness of breath. Denies vomiting, diarrhea, abdominal pain. Allergies: NKA - Physicial Exam PE: 01/19/19 12:38 GENERAL: Awake, alert, and fully oriented, in no acute distress HEAD: No signs of trauma EYES: PERRLA, EOMI, sclera anicteric, conjunctiva clear ENT: Auricles normal inspection, hearing grossly normal, nares patent, oropharynx clear without exudates. Moist mucosa NECK: Normal ROM, supple, no lymphadenopathy, JVD, or masses LUNGS: Breath sounds equal, clear to auscultation bilaterally. No wheezes, and no crackles HEART: Regular rate and rhythm, normal S1 and S2, no murmurs, rubs or gallops ABDOMEN: Soft, nontender, normoactive bowel sounds. No guarding, no rebound. No masses EXTREMITIES: Normal range of motion, no edema. No clubbing or cyanosis. No cords , erythema, or tenderness BACK: No midline spinal tenderness in cervical/thoracic/lumbar region NEUROLOGICAL: Normal speech, cranial nerves intact, negative pronator drift, 5/ 5 strength in all 4 extremities, normal sensation to light touch in all 4 extremities, normal cerebellar exam, normal gait, normal tone SKIN: Warm, Dry, normal turgor, no rashes or lesions noted. - Medical Decision Making 01/19/19 12:43 38yo F hx vertigo and migraines presents to the ED with room spinning dizziness , similar to her usual vertigo Vitals wnl Exam wnl, neuro intact entirely Likely BPPV, will treat with meclizine, IVF, reglan, reassess 01/19/19 14:25 dizziness has resolved labs wnl Pt requesting DC and work note Pt clincially stable for DC home I discussed the physical exam findings, ancillary test results and final diagnoses with the patient. I answered all of the patient's questions. The patient was satisfied with the care received and felt comfortable with the discharge plan and treatment plan. The patient will call their primary care physician within 24 hours to arrange follow-up and will return to the Emergency Department with any new, persistent or worsening symptoms.
[2019-01-19 13:21] LABS: BASO % 1.3 % (0-2.0); EOS % 2.1 % (0-4.5); HEMATOCRIT 38.5 % (32.4-45.2); HEMOGLOBIN 12.5 GM/dL (10.7-15.3); LYMPH % 23.5 % (8-40); MCH 25.9 pg (25.7-33.7); MCHC 32.6 g/dl (32.0-36.0); MEAN CELL VOLUME 79.6 fl (80-96); MEAN PLT VOLUME 8.7 fl (7.5-11.1); MONO % 7.9 % (3.8-10.2); NEUT % 65.2 % (42.8-82.8); PLATELET COUNT 253 K/MM3 (134-434); RBC 4.83 M/mm3 (3.60-5.2); RDW 20.4 % (11.6-15.6); WHITE BLOOD COUNT 5.5 K/mm3 (4.0-10.0)
[2019-01-19 13:45] LABS: ALK PHOS 80 U/L (45-117); ANION GAP 7 MMOL/L (8-16); BILIRUBIN,TOTAL 0.5 mg/dL (0.2-1); BLOOD UREA NITROGEN 7.4 mg/dL (7-18); CALCIUM 8.7 mg/dL (8.5-10.1); CHLORIDE 106 mmol/L (98-107); CO2 26 mmol/L (21-32); CREATININE 0.7 mg/dL (0.55-1.3); GLUCOSE,RANDOM 76 mg/dL (74-106); MAGNESIUM 2.1 mg/dL (1.8-2.4); PHOSPHOROUS 2.3 mg/dL (2.5-4.9); POTASSIUM 3.8 mmol/L (3.5-5.1); SGOT/AST 20 U/L (15-37); SGPT/ALT 30 U/L (13-61); SODIUM 139 mmol/L (136-145); TOT PROT 7.5 g/dl (6.4-8.2)
[2019-01-19 14:57] VITALS: BP 122/78; PULSE 75; TEMP 98.2
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
== END 2019-01-19 14:58 | disposition home or self-care (01) ==
LOC: JER 09:25
PROC: 3E033GC Introduction of Other Therapeutic Substance into Peripheral Vein, Percutaneous Approach (ICD-10-PCS; principal; 2019-01-19)
DX: R42 Dizziness and giddiness (principal); K21.9 Gastro-esophageal reflux disease without esophagitis; G43.909 Migraine, unspecified, not intractable, without status migrainosus; Z86.69 Personal history of other diseases of the nervous system and sense organs; E78.5 Hyperlipidemia, unspecified
CPT/HCPCS: 36415; 80053; 82550; 82553; 83735; 84100; 84443; 84484; 84703; 85025; 93005; 93010; 96374; 99283-25

== ENCOUNTER 2019-10-27 15:52 | Emergency (ER) | payer OTHER ==
[2019-10-27 16:04] VITALS: BP 135/80; PULSE 80; TEMP 98.4; BMI 25.0
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
[2019-10-27] MEDS ORDERED: KETOROLAC TROMETHAMINE 60 MG/2 ML VIAL IM ONE (16:21)
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
[2019-10-27] MEDS ORDERED: KETOROLAC TROMETHAMINE 60 MG/2 ML VIAL ONE (16:29)
== END 2019-10-27 16:41 | disposition home or self-care (01) ==
LOC: JERFT 15:52
PROC: 3E0233Z Introduction of Anti-inflammatory into Muscle, Percutaneous Approach (ICD-10-PCS; principal; 2019-10-27)
DX: S16.1XXA Strain of muscle, fascia and tendon at neck level, initial encounter (principal); S39.012A Strain of muscle, fascia and tendon of lower back, initial encounter; V89.2XXA Person injured in unspecified motor-vehicle accident, traffic, initial encounter
CPT/HCPCS: 99284-25

== ENCOUNTER 2020-07-15 10:30 | Emergency (ER) | payer OTHER ==
[2020-07-15 10:56] VITALS: BP 116/76; PULSE 90; TEMP 98; BMI 25.1
== END 2020-07-15 12:10 | disposition home or self-care (01) ==
LOC: JER 10:30 → JERFT 10:30
DX: H05.012 Cellulitis of left orbit (principal)
CPT/HCPCS: 99283-25

== ENCOUNTER 2020-08-11 16:10 | Emergency (ER) | payer OTHER ==
[2020-08-11 16:32] VITALS: BMI 26.2
[2020-08-11 18:24] LABS: BASO % 1.1 % (0-2.0); EOS % 1.9 % (0-4.5); HEMATOCRIT 31.3 % (32.4-45.2); HEMOGLOBIN 10.3 GM/dL (10.7-15.3); MCH 25.7 pg (25.7-33.7); MCHC 32.9 g/dl (32.0-36.0); MEAN CELL VOLUME 77.9 fl (80-96); MEAN PLT VOLUME 8.5 fl (7.5-11.1); MONO % 10.7 % (3.8-10.2); NEUT % 54.3 % (42.8-82.8); PLATELET COUNT 266 K/MM3 (134-434); RBC 4.02 M/mm3 (3.60-5.2); RDW 16.2 % (11.6-15.6); WHITE BLOOD COUNT 6.5 K/mm3 (4.0-10.0)
[2020-08-11 18:31] LABS: CHLORIDE 106 mmol/L (98-107); SODIUM 138 mmol/L (136-145)
[2020-08-11 18:34] LABS: CALCIUM 8.6 mg/dL (8.5-10.1)
[2020-08-11 18:35] LABS: ALBUMIN 3.9 g/dl (3.4-5.0); ANION GAP 6 MMOL/L (8-16); BLOOD UREA NITROGEN 8.1 mg/dL (7-18); CO2 26 mmol/L (21-32); GLUCOSE,RANDOM 76 mg/dL (74-106)
[2020-08-11 18:38] LABS: CREATININE 0.8 mg/dL (0.55-1.3); SGOT/AST 20 U/L (15-37); SGPT/ALT 26 U/L (13-61)
[2020-08-11 18:40] LABS: BILIRUBIN,TOTAL 0.5 mg/dL (0.2-1); TOT PROT 7.2 g/dl (6.4-8.2)
[2020-08-11 18:41] LABS: ALK PHOS 81 U/L (45-117)
[2020-08-11 20:17] VITALS: BP 120/79; PULSE 76; TEMP 97.4
== END 2020-08-11 20:26 | disposition home or self-care (01) ==
LOC: JER 16:10
DX: R06.02 Shortness of breath (principal); M79.605 Pain in left leg
CPT/HCPCS: 36415; 71046-TC-FY; 71275-TC; 80053; 82550; 84484; 84703; 85025; 85379; 93005; 93010; 93971-TC; 99285-25; C9803; Q9967; U0003; U0005

== ENCOUNTER 2020-08-25 22:22 | Emergency (ER) | payer OTHER ==
[2020-08-25 22:34] VITALS: TEMP 98.1; BMI 26.4
[2020-08-26] MEDS ORDERED: MECLIZINE HCL 25 MG TABLET (FP) PO ONE (00:33)
[2020-08-26] MEDS ORDERED: MECLIZINE HCL 25 MG TABLET (FP) ONE (01:12)
[2020-08-26 03:47] VITALS: BP 119/82; PULSE 89
== END 2020-08-26 03:49 | disposition home or self-care (01) ==
LOC: JER 22:22
DX: R42 Dizziness and giddiness (principal)
CPT/HCPCS: 99283-25

== ENCOUNTER 2020-09-21 18:37 | Emergency (ER) | payer OTHER ==
[2020-09-21 19:42] VITALS: BP 126/77; TEMP 98.3; BMI 26.6
[2020-09-21 19:45] VITALS: PULSE 84
[2020-09-21] MEDS ORDERED: KETOROLAC TROMETHAMINE 60 MG/2 ML VIAL IM ONE (20:05)
[2020-09-21] MEDS ORDERED: KETOROLAC TROMETHAMINE 60 MG/2 ML VIAL ONE (20:34)
== END 2020-09-21 21:16 | disposition home or self-care (01) ==
LOC: JER 18:37 → JERFT 18:37
PROC: 3E0233Z Introduction of Anti-inflammatory into Muscle, Percutaneous Approach (ICD-10-PCS; principal; 2020-09-21)
DX: M79.661 Pain in right lower leg (principal)
CPT/HCPCS: 93971-TC; 99284-25

== ENCOUNTER 2022-03-05 17:45 | Emergency (ER) | payer OTHER ==
[2022-03-05 18:15] VITALS: BP 119/81; PULSE 88; RESP 18; TEMP 97.9; BMI 28.0
[2022-03-05] MEDS ORDERED: ACETAMINOPHEN 500 MG TABLET (FP) PO ONE (19:49)
[2022-03-05] MEDS ORDERED: ACETAMINOPHEN 500 MG TABLET (FP) ONE (20:40)
== END 2022-03-05 21:00 | disposition home or self-care (01) ==
LOC: JER 17:45
DX: M79.605 Pain in left leg (principal)
CPT/HCPCS: 93971-TC; 99283-25

== ENCOUNTER 2022-03-21 12:43 | Emergency (ER) | payer OTHER ==
[2022-03-21 12:52] VITALS: BP 136/82; PULSE 92; RESP 18; TEMP 98; BMI 28.0
[2022-03-21 16:09] LABS: BASO % 0.9 % (0-2.0); EOS % 0.8 % (0-4.5); HEMATOCRIT 37.6 % (32.4-45.2); HEMOGLOBIN 12.1 GM/dL (10.7-15.3); LYMPH % 20.9 % (8-40); MCH 24.7 pg (25.7-33.7); MCHC 32.1 g/dl (32.0-36.0); MEAN PLT VOLUME 8.1 fl (7.5-11.1); MONO % 8.1 % (3.8-10.2); NEUT % 69.3 % (42.8-82.8); PLATELET COUNT 298 10^3/uL (134-434); RBC 4.89 M/mm3 (3.60-5.2); WHITE BLOOD COUNT 7.2 K/mm3 (4.0-10.0)
[2022-03-21 16:23] LABS: CALCIUM 9.2 mg/dL (8.5-10.1)
[2022-03-21 16:24] LABS: ALBUMIN 4.3 g/dl (3.4-5.0); BLOOD UREA NITROGEN 7.6 mg/dL (7-18)
[2022-03-21 16:27] LABS: CREATININE 0.8 mg/dL (0.55-1.3)
[2022-03-21 16:29] LABS: BILIRUBIN,TOTAL 0.5 mg/dL (0.2-1); TOT PROT 8.3 g/dl (6.4-8.2)
== END 2022-03-21 21:22 | disposition home or self-care (01) ==
LOC: JER 12:43
DX: R07.9 Chest pain, unspecified (principal)
CPT/HCPCS: 36415; 71046-TC-FY; 71275-TC; 80053; 84484; 84703; 85025; 85379; 93005; 93010; 99285-25

== ENCOUNTER 2022-10-05 04:58 | Emergency (ER) | payer OTHER ==
[2022-10-05 05:05] VITALS: BMI 26.6
[2022-10-05] MEDS ORDERED: MECLIZINE HCL 25 MG TABLET (FP) PO ONE (05:34)
[2022-10-05] MEDS ORDERED: FAMOTIDINE 20 MG/50 ML IVPB 20 MG/50 ML MG IVPB ONE ×2 (05:34→06:27)
[2022-10-05] MEDS ORDERED: MAG HYDROX/AL HYDROX/SIMETH 30 ML UNIT-DOSE CUP PO ONE (05:34)
[2022-10-05] MEDS ORDERED: ONDANSETRON 4 MG/2 ML VIAL IVPUSH ONE (05:34)
[2022-10-05] MEDS ORDERED: MAG HYDROX/AL HYDROX/SIMETH 30 ML UNIT-DOSE CUP ONE (06:01)
[2022-10-05] MEDS ORDERED: MECLIZINE HCL 25 MG TABLET (FP) ONE (06:01)
[2022-10-05] MEDS ORDERED: ONDANSETRON 4 MG/2 ML VIAL ONE (06:27)
[2022-10-05 06:40] LABS: EOS % 1.4 % (0-4.5); HEMATOCRIT 35.2 % (32.4-45.2); HEMOGLOBIN 11.1 GM/dL (10.7-15.3); LYMPH % 21.8 % (8-40); MCH 25.3 pg (25.7-33.7); MCHC 31.5 g/dl (32.0-36.0); MEAN CELL VOLUME 80.3 fl (80-96); MEAN PLT VOLUME 8.8 fl (7.5-11.1); MONO % 7.9 % (3.8-10.2); NEUT % 67.9 % (42.8-82.8); PLATELET COUNT 314 10^3/uL (134-434); RBC 4.38 M/mm3 (3.60-5.2); RDW 17.9 % (11.6-15.6); WHITE BLOOD COUNT 6.7 K/mm3 (4.0-10.0)
[2022-10-05 07:00] LABS: PROTHROMBIN TIME (PATIENT) 11.6 SEC (9.7-13.0)
[2022-10-05 07:03] LABS: ACTIVATED PTT 28.1 SECONDS (25.2-36.5)
[2022-10-05 07:07] LABS: POTASSIUM 5.7 mmol/L (3.5-5.1)
[2022-10-05 07:08] LABS: CALCIUM 8.3 mg/dL (8.5-10.1)
[2022-10-05 07:09] LABS: ALBUMIN 3.6 g/dl (3.4-5.0); BLOOD UREA NITROGEN 8.7 mg/dL (7-18)
[2022-10-05 07:13] LABS: CREATININE 0.9 mg/dL (0.55-1.3)
[2022-10-05 07:14] LABS: BILIRUBIN,TOTAL 0.4 mg/dL (0.2-1); TOT PROT 7.4 g/dl (6.4-8.2)
[2022-10-05 07:36] VITALS: RESP 16
[2022-10-05] MEDS ORDERED: SODIUM CHLORIDE 0.9% 500 ML INFUS.BAG IV ONE (08:19)
[2022-10-05] MEDS ORDERED: METOCLOPRAMIDE HCL INJECTION 10 MG/2 ML VIAL IVPUSH ONE (08:19)
[2022-10-05] MEDS ORDERED: METOCLOPRAMIDE HCL INJECTION 10 MG/2 ML VIAL ONE (08:33)
[2022-10-05 10:34] VITALS: BP 110/76; PULSE 71; TEMP 98.1
== END 2022-10-05 10:30 | disposition home or self-care (01) ==
LOC: JER 04:58
PROC: 3E033GC Introduction of Other Therapeutic Substance into Peripheral Vein, Percutaneous Approach (ICD-10-PCS; principal; 2022-10-05)
PROC: 3E033GC Introduction of Other Therapeutic Substance into Peripheral Vein, Percutaneous Approach (ICD-10-PCS; 2022-10-05)
PROC: 3E033GC Introduction of Other Therapeutic Substance into Peripheral Vein, Percutaneous Approach (ICD-10-PCS; 2022-10-05)
DX: R07.9 Chest pain, unspecified (principal); R42 Dizziness and giddiness; R11.0 Nausea
CPT/HCPCS: 36415; 71046-TC-FY; 80053; 84484; 84703; 85025; 85610; 85730; 93005; 93010; 99285-25

== ENCOUNTER 2023-06-24 08:29 | Emergency (ER) | payer OTHER ==
[2023-06-24 08:44] VITALS: BP 117/71; PULSE 88; RESP 18; TEMP 97.8; BMI 26.6
[2023-06-24 11:57] LABS: BASO % 1.1 % (0-2.0); EOS % 0.6 % (0-4.5); HEMATOCRIT 35.1 % (32.4-45.2); HEMOGLOBIN 11.4 GM/dL (10.7-15.3); MCH 26.5 pg (25.7-33.7); MCHC 32.4 g/dl (32.0-36.0); MEAN CELL VOLUME 81.5 fl (80-96); MEAN PLT VOLUME 7.6 fl (7.5-11.1); MONO % 7.5 % (3.8-10.2); NEUT % 75.8 % (42.8-82.8); PLATELET COUNT 334 10^3/uL (134-434); RBC 4.31 M/mm3 (3.60-5.2); RDW 18.6 % (11.6-15.6); WHITE BLOOD COUNT 7.7 K/mm3 (4.0-10.0)
[2023-06-24 12:00] LABS: EPI CELLS >36 /uL (0-25.1); HYALINE CASTS 1 /uL (0-3.1); URINE APPEARANCE CLEAR; URINE BACTERIA 188 /uL (0-1359); URINE BILIRUBIN NEGATIVE (NEGATIVE); URINE COLOR YELLOW; URINE GLUCOSE (UA) NEGATIVE (NEGATIVE); URINE KETONE NEGATIVE (NEGATIVE); URINE LEUK ESTERASE NEGATIVE (NEGATIVE); URINE NITRITE NEGATIVE (NEGATIVE); URINE PROTEIN NEGATIVE (NEGATIVE); URINE RBC 1944 /uL (0-23.9); URINE UROBILINOGEN 0.2 mg/dL (0.2-1.0); URINE WBC 9 /uL (0-25.8)
[2023-06-24 12:25] LABS: CHLORIDE 107 mmol/L (98-107); POTASSIUM 4.3 mmol/L (3.5-5.1); SODIUM 139 mmol/L (136-145)
[2023-06-24 12:27] LABS: CALCIUM 8.4 mg/dL (8.5-10.1)
[2023-06-24 12:28] LABS: ALBUMIN 3.7 g/dl (3.4-5.0); ANION GAP 9 mmol/L (4-13); BLOOD UREA NITROGEN 8.1 mg/dL (7-18); CO2 23 mmol/L (21-32); GLUCOSE,RANDOM 89 mg/dL (74-106)
[2023-06-24 12:31] LABS: CREATININE 0.8 mg/dL (0.55-1.3); SGOT/AST 11 U/L (15-37); SGPT/ALT 16 U/L (13-61)
[2023-06-24 12:32] LABS: BILIRUBIN,TOTAL 0.3 mg/dL (0.2-1)
[2023-06-24 12:33] LABS: TOT PROT 7.6 g/dl (6.4-8.2)
[2023-06-24 12:34] LABS: ALK PHOS 83 U/L (45-117)
== END 2023-06-24 13:23 | disposition home or self-care (01) ==
LOC: JER 08:29
DX: N93.8 Other specified abnormal uterine and vaginal bleeding (principal); R10.30 Lower abdominal pain, unspecified; M54.50 Low back pain, unspecified; R42 Dizziness and giddiness
CPT/HCPCS: 36415; 80053; 81003; 84702; 85025; 86850; 86900; 86901; 87086; 99283-25

== ENCOUNTER 2023-08-12 10:57 | Observation (INO) | payer OTHER ==
[2023-08-12] MEDS: ACETAMINOPHEN 1000 MG/100 ML BAG IVPB ONE (13:07)
[2023-08-12] MEDS ORDERED: ACETAMINOPHEN INJECTION 100 ML IVPB ONE (13:08)
[2023-08-12 13:10] LABS: EOS % 1.2 % (0-4.5); HEMATOCRIT 29.7 % (32.4-45.2); HEMOGLOBIN 9.2 GM/dL (10.7-15.3); LYMPH % 12.7 % (8-40); MCH 23.7 pg (25.7-33.7); MCHC 30.9 g/dl (32.0-36.0); MEAN CELL VOLUME 76.6 fl (80-96); MEAN PLT VOLUME 7.6 fl (7.5-11.1); MONO % 7.8 % (3.8-10.2); NEUT % 77.3 % (42.8-82.8); PLATELET COUNT 420 10^3/uL (134-434); RBC 3.88 M/mm3 (3.60-5.2); RDW 18.4 % (11.6-15.6); WHITE BLOOD COUNT 8.5 K/mm3 (4.0-10.0)
[2023-08-12 13:49] LABS: POTASSIUM 4.4 mmol/L (3.5-5.1)
[2023-08-12 13:52] LABS: CALCIUM 8.4 mg/dL (8.5-10.1)
[2023-08-12 13:53] LABS: ALBUMIN 3.1 g/dl (3.4-5.0); BLOOD UREA NITROGEN 7.2 mg/dL (7-18)
[2023-08-12 13:56] LABS: CREATININE 0.7 mg/dL (0.55-1.3)
[2023-08-12 13:57] LABS: BILIRUBIN,TOTAL 0.2 mg/dL (0.2-1)
[2023-08-12 13:58] LABS: TOT PROT 6.9 g/dl (6.4-8.2)
[2023-08-12] MEDS ORDERED: KETOROLAC TROMETHAMINE 15 MG/ML VIAL ONE (15:09)
[2023-08-12] MEDS: KETOROLAC TROMETHAMINE 15 MG/ML VIAL IVPUSH ONE (15:19)
[2023-08-12] MEDS ORDERED: HEPARIN NA (PORCINE) 5,000 UNITS/ML 1ML VIAL IVPUSH PRN (17:52)
[2023-08-12 18:15] LABS: EPI CELLS 29 /uL (0-25.1); HYALINE CASTS 3 /uL (0-3.1); PH,URINE 6.5 (5.0-8.0); URINE APPEARANCE CLEAR; URINE BACTERIA 58 /uL (0-1359); URINE BILIRUBIN NEGATIVE (NEGATIVE); URINE COLOR ORANGE; URINE GLUCOSE (UA) NEGATIVE (NEGATIVE); URINE KETONE NEGATIVE (NEGATIVE); URINE LEUK ESTERASE NEGATIVE (NEGATIVE); URINE NITRITE NEGATIVE (NEGATIVE); URINE PROTEIN TRACE (NEGATIVE); URINE RBC 4722 /uL (0-23.9); URINE UROBILINOGEN 0.2 mg/dL (0.2-1.0); URINE WBC 33 /uL (0-25.8)
[2023-08-12 18:27] LABS: INR 1.09 (0.83-1.09); PROTHROMBIN TIME (PATIENT) 12.6 SEC (9.7-13.0)
[2023-08-12 18:30] LABS: ACTIVATED PTT 25.5 SECONDS (25.2-36.5)
[2023-08-12] MEDS ORDERED: HEPARIN INFUSION - 25,000 UNITS/500 ML INFUS.BAG IVPB ONE (18:34)
[2023-08-12] MEDS: HEPARIN INFUSION - 25,000 UNITS/500 ML INFUS.BAG IVPB SCH (18:41)
[2023-08-12 20:19] LABS: N-TERMINAL BNP 28.2 pg/ml (5-125)
[2023-08-12 22:26] VITALS: BMI 27.0
[2023-08-12] MEDS ORDERED: ACETAMINOPHEN 1000 MG/100 ML BAG IVPB PRN (23:16)
[2023-08-13] MEDS: HEPARIN NA (PORCINE) 5,000 UNITS/ML 1ML VIAL IVPUSH PRN (04:52)
[2023-08-13 07:10] LABS: HEMATOCRIT 26.8 % (32.4-45.2); HEMOGLOBIN 8.4 GM/dL (10.7-15.3); MCH 23.8 pg (25.7-33.7); MCHC 31.3 g/dl (32.0-36.0); MEAN CELL VOLUME 76.1 fl (80-96); MEAN PLT VOLUME 7.7 fl (7.5-11.1); PLATELET COUNT 423 10^3/uL (134-434); RBC 3.52 M/mm3 (3.60-5.2); RDW 18.3 % (11.6-15.6); WHITE BLOOD COUNT 6.3 K/mm3 (4.0-10.0)
[2023-08-13 09:19] LABS: CALCIUM 8.2 mg/dL (8.5-10.1)
[2023-08-13 09:20] LABS: ALBUMIN 2.8 g/dl (3.4-5.0); BLOOD UREA NITROGEN 6.4 mg/dL (7-18); MAGNESIUM 2.2 mg/dL (1.8-2.4)
[2023-08-13 09:23] LABS: CREATININE 0.8 mg/dL (0.55-1.3); PHOSPHOROUS 3.4 mg/dL (2.5-4.9)
[2023-08-13 09:24] LABS: BILIRUBIN,TOTAL 0.2 mg/dL (0.2-1); POTASSIUM 4.1 mmol/L (3.5-5.1); TOT PROT 6.3 g/dl (6.4-8.2)
[2023-08-13] MEDS: IRON SUCROSE INJECTION 200 MG in SODIUM CHLORIDE 100 ML IVPB ONE (20:24)
[2023-08-13] MEDS: APIXABAN 5 MG TABLET PO SCH (22:15)
[2023-08-14 00:16] VITALS: RESP 18
[2023-08-14 07:17] LABS: HEMATOCRIT 26.1 % (32.4-45.2); HEMOGLOBIN 8.4 GM/dL (10.7-15.3); MCH 24.3 pg (25.7-33.7); MCHC 32.2 g/dl (32.0-36.0); MEAN CELL VOLUME 75.6 fl (80-96); MEAN PLT VOLUME 7.6 fl (7.5-11.1); PLATELET COUNT 424 10^3/uL (134-434); RBC 3.46 M/mm3 (3.60-5.2); RDW 18.2 % (11.6-15.6)
[2023-08-14 07:19] LABS: POTASSIUM 4.3 mmol/L (3.5-5.1)
[2023-08-14 07:23] LABS: CALCIUM 8.1 mg/dL (8.5-10.1)
[2023-08-14 07:24] LABS: BLOOD UREA NITROGEN 6.3 mg/dL (7-18)
[2023-08-14 07:27] LABS: CREATININE 0.7 mg/dL (0.55-1.3)
[2023-08-14] MEDS: IRON SUCROSE INJECTION 200 MG in SODIUM CHLORIDE 100 ML IVPB ONE (11:46)
[2023-08-14] MEDS ORDERED: ACETAMINOPHEN 325 MG TABLET (FP) PO PRN (17:40)
[2023-08-14] MEDS ORDERED: ACETAMINOPHEN 1000 MG/100 ML BAG IVPB PRN (17:41)
[2023-08-14] MEDS: ACETAMINOPHEN 325 MG TABLET (FP) PO PRN (17:47)
[2023-08-14 20:19] LABS: EOS % 1.4 % (0-4.5); HEMATOCRIT 30.4 % (32.4-45.2); HEMOGLOBIN 9.7 GM/dL (10.7-15.3); LYMPH % 18.7 % (8-40); MCHC 31.9 g/dl (32.0-36.0); MEAN CELL VOLUME 75.4 fl (80-96); MEAN PLT VOLUME 7.5 fl (7.5-11.1); MONO % 7.8 % (3.8-10.2); NEUT % 71.1 % (42.8-82.8); PLATELET COUNT 495 10^3/uL (134-434); RBC 4.03 M/mm3 (3.60-5.2); RDW 18.4 % (11.6-15.6); WHITE BLOOD COUNT 7.1 K/mm3 (4.0-10.0)
[2023-08-14 20:38] LABS: CALCIUM 8.7 mg/dL (8.5-10.1)
[2023-08-14 20:39] LABS: BLOOD UREA NITROGEN 7.2 mg/dL (7-18); MAGNESIUM 2.2 mg/dL (1.8-2.4)
[2023-08-14 20:42] LABS: CREATININE 0.9 mg/dL (0.55-1.3)
[2023-08-15] MEDS: MELATONIN 5 MG TABLETS PO ONE (00:16)
[2023-08-15 06:02] VITALS: TEMP 97.9
[2023-08-15 12:16] VITALS: BP 90/65; PULSE 86
== END 2023-08-15 14:51 | disposition home or self-care (01) ==
LOC: JER 10:57 → JERBED 17:31 → J4W 20:58
PROVIDERS: ADMIT Internal Medicine; ATTEND Internal Medicine
PROC: 3E033NZ Introduction of Analgesics, Hypnotics, Sedatives into Peripheral Vein, Percutaneous Approach (ICD-10-PCS; principal; 2023-08-12)
PROC: 3E033GC Introduction of Other Therapeutic Substance into Peripheral Vein, Percutaneous Approach (ICD-10-PCS; 2023-08-12)
PROC: 3E0333Z Introduction of Anti-inflammatory into Peripheral Vein, Percutaneous Approach (ICD-10-PCS; 2023-08-12)
DX: I26.99 Other pulmonary embolism without acute cor pulmonale (principal); D50.9 Iron deficiency anemia, unspecified; N92.0 Excessive and frequent menstruation with regular cycle; G43.909 Migraine, unspecified, not intractable, without status migrainosus; G89.29 Other chronic pain; R42 Dizziness and giddiness; N83.209 Unspecified ovarian cyst, unspecified side; Z90.49 Acquired absence of other specified parts of digestive tract
CPT/HCPCS: 36415; 71045-TC-FY; 71046-TC-FY; 71275-TC; 76700-TC; 80048; 80053; 81003; 82728; 83540; 83550; 83735; 83880; 84100; 84484; 84703; 85025; 85027; 85379; 85610; 85730; 87086; 93005; 93010; 93306-TC; 93970-TC; 94761; 96365; 96366; 96367; 96375; 99291; G0378; J0131; J1644; J1756; Q9967

== ENCOUNTER 2023-08-18 02:05 | Emergency (ER) | payer OTHER ==
[2023-08-18 02:24] VITALS: BMI 26.6
[2023-08-18] MEDS ORDERED: ACETAMINOPHEN INJECTION 100 ML IVPB ONE (03:09)
[2023-08-18] MEDS: ACETAMINOPHEN 1000 MG/100 ML BAG IVPB ONE (03:30)
[2023-08-18 03:45] LABS: BASO % 1.1 % (0-2.0); EOS % 1.1 % (0-4.5); HEMATOCRIT 31.3 % (32.4-45.2); HEMOGLOBIN 10.1 GM/dL (10.7-15.3); MCH 24.5 pg (25.7-33.7); MCHC 32.2 g/dl (32.0-36.0); MEAN CELL VOLUME 76.1 fl (80-96); MONO % 9.1 % (3.8-10.2); NEUT % 70.7 % (42.8-82.8); PLATELET COUNT 555 10^3/uL (134-434); RBC 4.11 M/mm3 (3.60-5.2); WHITE BLOOD COUNT 7.4 K/mm3 (4.0-10.0)
[2023-08-18 04:03] LABS: EOS % 1.1 % (0-4.5); HEMATOCRIT 29.3 % (32.4-45.2); HEMOGLOBIN 9.4 GM/dL (10.7-15.3); LYMPH % 19.2 % (8-40); MCH 24.5 pg (25.7-33.7); MCHC 32.1 g/dl (32.0-36.0); MEAN CELL VOLUME 76.3 fl (80-96); MEAN PLT VOLUME 7.2 fl (7.5-11.1); MONO % 8.9 % (3.8-10.2); NEUT % 69.8 % (42.8-82.8); PLATELET COUNT 511 10^3/uL (134-434); RBC 3.84 M/mm3 (3.60-5.2); RDW 18.8 % (11.6-15.6); WHITE BLOOD COUNT 7.2 K/mm3 (4.0-10.0)
[2023-08-18 04:15] LABS: INR 1.58 (0.83-1.09); PROTHROMBIN TIME (PATIENT) 18.2 SEC (9.7-13.0)
[2023-08-18 04:17] LABS: ACTIVATED PTT 35.8 SECONDS (25.2-36.5)
[2023-08-18 04:24] LABS: POTASSIUM 4.1 mmol/L (3.5-5.1)
[2023-08-18 04:26] LABS: ALBUMIN 3.3 g/dl (3.4-5.0); BLOOD UREA NITROGEN 5.4 mg/dL (7-18); CALCIUM 8.5 mg/dL (8.5-10.1)
[2023-08-18 04:29] LABS: CREATININE 0.7 mg/dL (0.55-1.3)
[2023-08-18 04:31] LABS: BILIRUBIN,TOTAL 0.2 mg/dL (0.2-1)
[2023-08-18] MEDS: FAMOTIDINE 20 MG/50 ML IVPB 20 MG/50 ML MG IVPB ONE (04:58)
[2023-08-18] MEDS ORDERED: FAMOTIDINE 20 MG TABLET ONE (04:59)
[2023-08-18] MEDS ORDERED: SUCRALFATE 1 GM TABLET (FP) ONE (05:00)
[2023-08-18] MEDS ORDERED: MAG HYDROX/AL HYDROX/SIMETH 30 ML UNIT-DOSE CUP ONE (05:00)
[2023-08-18] MEDS: MAG HYDROX/AL HYDROX/SIMETH -MYLANTA- ORAL SUSPENSION PO ONE (05:06)
[2023-08-18] MEDS: SUCRALFATE 1 GM TABLET (FP) PO ONE (05:06)
[2023-08-18] MEDS: FAMOTIDINE 20 MG TABLET PO ONE (05:06)
[2023-08-18 06:57] VITALS: BP 111/78; PULSE 81; RESP 13; TEMP 98.5
== END 2023-08-18 06:56 | disposition home or self-care (01) ==
LOC: JER 02:05
PROC: 3E033NZ Introduction of Analgesics, Hypnotics, Sedatives into Peripheral Vein, Percutaneous Approach (ICD-10-PCS; principal; 2023-08-18)
DX: R07.9 Chest pain, unspecified (principal)
CPT/HCPCS: 36415; 71045-TC-FY; 80053; 84484; 84703; 85025; 85610; 85730; 93005; 93010; 99285-25; J0131

== ENCOUNTER 2023-08-21 01:48 | Emergency (ER) | payer OTHER ==
[2023-08-21 01:55] VITALS: PULSE 81; BMI 26.9
[2023-08-21 03:02] LABS: EPI CELLS >36 /uL (0-25.1); HYALINE CASTS 3 /uL (0-3.1); PH,URINE 6.5 (5.0-8.0); URINE APPEARANCE CLOUDY; URINE BACTERIA 2259 /uL (0-1359); URINE BILIRUBIN NEGATIVE (NEGATIVE); URINE COLOR YELLOW; URINE GLUCOSE (UA) NEGATIVE (NEGATIVE); URINE KETONE TRACE (NEGATIVE); URINE LEUK ESTERASE 2+ (NEGATIVE); URINE NITRITE NEGATIVE (NEGATIVE); URINE PROTEIN NEGATIVE (NEGATIVE); URINE RBC 17 /uL (0-23.9); URINE UROBILINOGEN 0.2 mg/dL (0.2-1.0); URINE WBC 416 /uL (0-25.8)
[2023-08-21] MEDS ORDERED: METHOCARBAMOL 500 MG TABLET ONE (04:21)
[2023-08-21] MEDS ORDERED: CEPHALEXIN MONOHYDRATE 500 MG CAPSULE (UD) ONE (04:21)
[2023-08-21] MEDS: METHOCARBAMOL 500 MG TABLET PO ONE (04:24)
[2023-08-21] MEDS: CEPHALEXIN MONOHYDRATE 500 MG CAPSULE (UD) PO ONE (04:24)
[2023-08-21 04:36] VITALS: BP 100/60; RESP 13; TEMP 98.4
== END 2023-08-21 04:37 | disposition home or self-care (01) ==
LOC: JER 01:48
DX: M54.6 Pain in thoracic spine (principal); N39.0 Urinary tract infection, site not specified; M62.838 Other muscle spasm
CPT/HCPCS: 81003; 87086; 99283-25

== ENCOUNTER 2023-08-30 22:47 | Emergency (ER) | payer OTHER ==
[2023-08-30 22:55] VITALS: BP 121/76; PULSE 85; RESP 18; TEMP 97.7; BMI 26.1
[2023-08-31 00:02] LABS: BASO % 1.4 % (0-2.0); HEMATOCRIT 37.5 % (32.4-45.2); HEMOGLOBIN 11.9 GM/dL (10.7-15.3); INR 1.08 (0.83-1.09); LYMPH % 21.5 % (8-40); MCH 24.7 pg (25.7-33.7); MCHC 31.8 g/dl (32.0-36.0); MEAN CELL VOLUME 77.9 fl (80-96); MEAN PLT VOLUME 8.2 fl (7.5-11.1); MONO % 7.5 % (3.8-10.2); NEUT % 68.6 % (42.8-82.8); PLATELET COUNT 311 10^3/uL (134-434); PROTHROMBIN TIME (PATIENT) 12.2 SEC (9.7-13.0); RBC 4.82 M/mm3 (3.60-5.2); RDW 20.8 % (11.6-15.6); WHITE BLOOD COUNT 5.8 K/mm3 (4.0-10.0)
[2023-08-31 00:05] LABS: URINE APPEARANCE CLEAR; URINE BILIRUBIN NEGATIVE (NEGATIVE); URINE COLOR YELLOW; URINE GLUCOSE (UA) NEGATIVE (NEGATIVE); URINE KETONE NEGATIVE (NEGATIVE); URINE LEUK ESTERASE NEGATIVE (NEGATIVE); URINE NITRITE NEGATIVE (NEGATIVE); URINE PROTEIN NEGATIVE (NEGATIVE); URINE UROBILINOGEN 0.2 mg/dL (0.2-1.0)
[2023-08-31 00:05] LABS: ACTIVATED PTT 34.7 SECONDS (25.2-36.5)
[2023-08-31 00:13] LABS: CHLORIDE 107 mmol/L (98-107); SODIUM 134 mmol/L (136-145)
[2023-08-31 00:15] LABS: CALCIUM 8.9 mg/dL (8.5-10.1)
[2023-08-31 00:16] LABS: ALBUMIN 3.9 g/dl (3.4-5.0); CO2 22 mmol/L (21-32); GLUCOSE,RANDOM 94 mg/dL (74-106)
[2023-08-31 00:19] LABS: CREATININE 1.2 mg/dL (0.55-1.3); SGOT/AST 67 U/L (15-37); SGPT/ALT 22 U/L (13-61)
[2023-08-31 00:21] LABS: BILIRUBIN,TOTAL 0.4 mg/dL (0.2-1); TOT PROT 8.2 g/dl (6.4-8.2)
[2023-08-31 00:22] LABS: ALK PHOS 74 U/L (45-117)
[2023-08-31 00:25] LABS: ANISOCYTOSIS 2+; MACROCYTOSIS 1+; OVALOCYTE 1+
[2023-08-31 00:26] LABS: PLATELET ESTIMATE ADEQUATE
[2023-08-31 00:33] LABS: HYALINE CASTS NONE SEEN /uL (0-3.1)
[2023-08-31 00:41] LABS: ANION GAP 4 mmol/L (4-13); POTASSIUM 7.9 mmol/L (3.5-5.1)
[2023-08-31 01:46] LABS: POTASSIUM 3.7 mmol/L (3.5-5.1)
[2023-08-31 01:47] LABS: BLOOD UREA NITROGEN 11.2 mg/dL (7-18); CALCIUM 8.6 mg/dL (8.5-10.1)
== END 2023-08-31 02:16 | disposition home or self-care (01) ==
LOC: JER 22:47
DX: R07.9 Chest pain, unspecified (principal); R53.1 Weakness; R53.83 Other fatigue; R23.2 Flushing; Z20.822 Contact with and (suspected) exposure to COVID-19
CPT/HCPCS: 0241U-QW; 36415; 71046-TC-FY; 80048; 80053; 81003; 84484; 84703; 85025; 85610; 85730; 87086; 93005; 93010; 99285-25

== ENCOUNTER 2023-09-02 10:37 | Observation (INO) | payer OTHER ==
[2023-09-02] MEDS ORDERED: ACETAMINOPHEN 325 MG TABLET (FP) ONE (12:22)
[2023-09-02] MEDS: ACETAMINOPHEN 325 MG TABLET (FP) PO ONE (12:26)
[2023-09-02] MEDS: SODIUM CHLORIDE 0.9% 500 ML INFUS.BAG IV ONE (12:34)
[2023-09-02 12:51] LABS: BASO % 1.5 % (0-2.0); EOS % 1.4 % (0-4.5); HEMATOCRIT 34.6 % (32.4-45.2); HEMOGLOBIN 11.1 GM/dL (10.7-15.3); LYMPH % 20.2 % (8-40); MCH 25.2 pg (25.7-33.7); MCHC 32.1 g/dl (32.0-36.0); MEAN CELL VOLUME 78.5 fl (80-96); MEAN PLT VOLUME 8.5 fl (7.5-11.1); MONO % 6.7 % (3.8-10.2); NEUT % 70.2 % (42.8-82.8); PLATELET COUNT 356 10^3/uL (134-434); RBC 4.41 M/mm3 (3.60-5.2); RDW 22.4 % (11.6-15.6); WHITE BLOOD COUNT 4.9 K/mm3 (4.0-10.0)
[2023-09-02 13:03] LABS: POTASSIUM 4.6 mmol/L (3.5-5.1)
[2023-09-02 13:05] LABS: CALCIUM 9.3 mg/dL (8.5-10.1)
[2023-09-02 13:06] LABS: ALBUMIN 3.9 g/dl (3.4-5.0); BLOOD UREA NITROGEN 7.9 mg/dL (7-18)
[2023-09-02 13:09] LABS: CREATININE 0.8 mg/dL (0.55-1.3)
[2023-09-02 13:10] LABS: ACTIVATED PTT 34.6 SECONDS (25.2-36.5); INR 1.31 (0.83-1.09); PROTHROMBIN TIME (PATIENT) 14.7 SEC (9.7-13.0); TOT PROT 7.8 g/dl (6.4-8.2)
[2023-09-02 13:11] LABS: BILIRUBIN,TOTAL 0.4 mg/dL (0.2-1)
[2023-09-02] MEDS ORDERED: PATIENT'S OWN MEDICATION (NON-FORMULARY) (Ubrogepant [Ubrelvy] 100 MG Tablet) PO PRN (16:47)
[2023-09-02] MEDS ORDERED: METHOCARBAMOL 750 MG TABLET PO PRN (16:47)
[2023-09-02 17:29] VITALS: BMI 26.9
[2023-09-02] MEDS: LACTATED RINGERS SOLUTION 1,000 ML/1,000 ML INFUS.BAG IV SCH (17:41)
[2023-09-02] MEDS: APIXABAN 5 MG TABLET PO SCH (21:30)
[2023-09-02] MEDS: PANTOPRAZOLE SODIUM 40 MG VIAL IVPUSH SCH (21:30)
[2023-09-03] MEDS: FAMOTIDINE 20 MG/50 ML IVPB 20 MG/50 ML MG IVPB ONE (00:10)
[2023-09-03] MEDS: ACETAMINOPHEN 1000 MG/100 ML BAG IVPB ONE (00:40)
[2023-09-03] MEDS: LIDOCAINE PATCH REMOVAL MC SCH (01:00)
[2023-09-03] MEDS: LIDOCAINE 5% TOPICAL PATCH TP ONE (01:00)
[2023-09-03 08:28] LABS: BASO % 1.8 % (0-2.0); EOS % 2.1 % (0-4.5); HEMATOCRIT 33.1 % (32.4-45.2); HEMOGLOBIN 10.4 GM/dL (10.7-15.3); LYMPH % 25.9 % (8-40); MCH 24.6 pg (25.7-33.7); MCHC 31.4 g/dl (32.0-36.0); MEAN CELL VOLUME 78.4 fl (80-96); MEAN PLT VOLUME 8.3 fl (7.5-11.1); MONO % 9.7 % (3.8-10.2); NEUT % 60.5 % (42.8-82.8); PLATELET COUNT 275 10^3/uL (134-434); RBC 4.22 M/mm3 (3.60-5.2); WHITE BLOOD COUNT 4.6 K/mm3 (4.0-10.0)
[2023-09-03 08:31] LABS: POTASSIUM 3.7 mmol/L (3.5-5.1)
[2023-09-03 08:49] LABS: CALCIUM 8.5 mg/dL (8.5-10.1)
[2023-09-03 08:50] LABS: ALBUMIN 3.3 g/dl (3.4-5.0); BLOOD UREA NITROGEN 4.8 mg/dL (7-18)
[2023-09-03 08:53] LABS: CREATININE 0.7 mg/dL (0.55-1.3)
[2023-09-03 08:54] LABS: BILIRUBIN,TOTAL 0.8 mg/dL (0.2-1); TOT PROT 6.3 g/dl (6.4-8.2)
[2023-09-03] MEDS ORDERED: PATIENT'S OWN MEDICATION (NON-FORMULARY) (Atogepant [Qulipta] 60 MG Tablet) PO SCH (10:00)
[2023-09-03] MEDS ORDERED: ENOXAPARIN NA (PORCINE) 80 MG/0.8 ML DISP.SYRIN SQ SCH (10:00)
[2023-09-03 10:15] LABS: ANISOCYTOSIS 2+; MACROCYTOSIS 1+
[2023-09-03] MEDS ORDERED: MIDAZOLAM HCL 2 MG/2 ML SINGLE DOSE VIAL ONE (11:07)
[2023-09-03 14:36] VITALS: BP 109/81; PULSE 71; RESP 18; TEMP 97.7
== END 2023-09-03 16:01 | disposition home or self-care (01) ==
LOC: JER 10:37 → JERBED 14:37 → J8W 17:04
PROVIDERS: ADMIT Internal Medicine; ATTEND Nurse Practitioner Family
PROC: 3E033GC Introduction of Other Therapeutic Substance into Peripheral Vein, Percutaneous Approach (ICD-10-PCS; principal; 2023-09-02)
PROC: 3E033NZ Introduction of Analgesics, Hypnotics, Sedatives into Peripheral Vein, Percutaneous Approach (ICD-10-PCS; 2023-09-02)
PROC: 3E0337Z Introduction of Electrolytic and Water Balance Substance into Peripheral Vein, Percutaneous Approach (ICD-10-PCS; 2023-09-02)
PROC: 0DJ08ZZ Inspection of Upper Intestinal Tract, Via Natural or Artificial Opening Endoscopic (ICD-10-PCS; 2023-09-02)
DX: K31.7 Polyp of stomach and duodenum (principal); K43.2 Incisional hernia without obstruction or gangrene; K21.9 Gastro-esophageal reflux disease without esophagitis; K81.9 Cholecystitis, unspecified; D64.9 Anemia, unspecified; Z90.49 Acquired absence of other specified parts of digestive tract; Z79.01 Long term (current) use of anticoagulants; Z86.711 Personal history of pulmonary embolism; R42 Dizziness and giddiness; R56.9 Unspecified convulsions
CPT/HCPCS: 36415; 80053; 82272; 83735; 84100; 84703; 85025; 85610; 85730; 86850; 86900; 86901; 93005; 93010; 93971-TC; 96361; 96365; 96375; 99285-25; G0378; J0131

== ENCOUNTER 2023-09-18 08:42 | Emergency (ER) | payer OTHER ==
[2023-09-18 08:49] VITALS: BP 123/73; PULSE 69; RESP 18; TEMP 98; BMI 26.1
[2023-09-18 10:09] LABS: EOS % 1.3 % (0-4.5); HEMATOCRIT 35.3 % (32.4-45.2); HEMOGLOBIN 11.4 GM/dL (10.7-15.3); LYMPH % 20.4 % (8-40); MCH 25.5 pg (25.7-33.7); MCHC 32.2 g/dl (32.0-36.0); MEAN CELL VOLUME 79.4 fl (80-96); MEAN PLT VOLUME 8.2 fl (7.5-11.1); MONO % 7.7 % (3.8-10.2); NEUT % 69.6 % (42.8-82.8); PLATELET COUNT 317 10^3/uL (134-434); RBC 4.45 M/mm3 (3.60-5.2); RDW 23.2 % (11.6-15.6); WHITE BLOOD COUNT 5.2 K/mm3 (4.0-10.0)
[2023-09-18 10:22] LABS: INR 1.05 (0.83-1.09); PROTHROMBIN TIME (PATIENT) 11.9 SEC (9.7-13.0)
[2023-09-18 10:25] LABS: ACTIVATED PTT 34.3 SECONDS (25.2-36.5)
[2023-09-18 10:29] LABS: POTASSIUM 4.5 mmol/L (3.5-5.1)
[2023-09-18 10:32] LABS: CALCIUM 8.9 mg/dL (8.5-10.1)
[2023-09-18 10:33] LABS: ALBUMIN 3.8 g/dl (3.4-5.0); BLOOD UREA NITROGEN 4.8 mg/dL (7-18)
[2023-09-18 10:36] LABS: CREATININE 0.8 mg/dL (0.55-1.3)
[2023-09-18 10:37] LABS: BILIRUBIN,TOTAL 0.4 mg/dL (0.2-1); TOT PROT 7.3 g/dl (6.4-8.2)
[2023-09-18 10:41] LABS: ANISOCYTOSIS 3+; MACROCYTOSIS 0
[2023-09-18] MEDS ORDERED: TRANEXAMIC ACID 1000 MG/10 ML VIAL ONE (11:17)
[2023-09-18] MEDS: TRANEXAMIC ACID 1000 MG/10 ML VIAL IVPUSH ONE (11:43)
[2023-09-18 12:40] LABS: HCG,QUALITATIVE URINE Negative
[2023-09-18 12:43] LABS: EPI CELLS 9 /uL (0-25.1); HYALINE CASTS 0 /uL (0-3.1); PH,URINE 5.5 (5.0-8.0); URINE APPEARANCE CLEAR; URINE BACTERIA 6 /uL (0-1359); URINE BILIRUBIN NEGATIVE (NEGATIVE); URINE COLOR RED; URINE GLUCOSE (UA) NEGATIVE (NEGATIVE); URINE KETONE NEGATIVE (NEGATIVE); URINE LEUK ESTERASE 1+ (NEGATIVE); URINE NITRITE NEGATIVE (NEGATIVE); URINE PROTEIN 1+ (NEGATIVE); URINE RBC 16187 /uL (0-23.9); URINE UROBILINOGEN 0.2 mg/dL (0.2-1.0); URINE WBC 39 /uL (0-25.8)
[2023-09-18 13:21] LABS: BASO % 1.2 % (0-2.0); EOS % 0.3 % (0-4.5); HEMATOCRIT 32.8 % (32.4-45.2); HEMOGLOBIN 10.4 GM/dL (10.7-15.3); LYMPH % 17.9 % (8-40); MCH 25.2 pg (25.7-33.7); MCHC 31.8 g/dl (32.0-36.0); MEAN CELL VOLUME 79.1 fl (80-96); MEAN PLT VOLUME 8.2 fl (7.5-11.1); MONO % 6.7 % (3.8-10.2); NEUT % 73.9 % (42.8-82.8); PLATELET COUNT 283 10^3/uL (134-434); RBC 4.14 M/mm3 (3.60-5.2); RDW 23.5 % (11.6-15.6); WHITE BLOOD COUNT 4.8 K/mm3 (4.0-10.0)
== END 2023-09-18 14:00 | disposition home or self-care (01) ==
LOC: JER 08:42 → JERFT 08:42
PROC: 3E033GC Introduction of Other Therapeutic Substance into Peripheral Vein, Percutaneous Approach (ICD-10-PCS; principal; 2023-09-18)
DX: N93.9 Abnormal uterine and vaginal bleeding, unspecified (principal); R10.9 Unspecified abdominal pain
CPT/HCPCS: 36415; 80053; 81003; 84703; 85025; 85610; 85730; 86850; 86900; 86901; 87086; 99284-25

== ENCOUNTER 2023-09-25 09:32 | Emergency (ER) | payer OTHER ==
[2023-09-25 09:43] VITALS: BMI 27.0
[2023-09-25 11:50] LABS: BASO % 0.9 % (0-2.0); EOS % 0.4 % (0-4.5); HEMATOCRIT 35.6 % (32.4-45.2); HEMOGLOBIN 11.3 GM/dL (10.7-15.3); LYMPH % 18.4 % (8-40); MCH 25.4 pg (25.7-33.7); MCHC 31.7 g/dl (32.0-36.0); MEAN CELL VOLUME 80.1 fl (80-96); MEAN PLT VOLUME 8.2 fl (7.5-11.1); MONO % 7.3 % (3.8-10.2); PLATELET COUNT 368 10^3/uL (134-434); RBC 4.44 M/mm3 (3.60-5.2); RDW 23.4 % (11.6-15.6); WHITE BLOOD COUNT 5.2 K/mm3 (4.0-10.0)
[2023-09-25 11:56] LABS: INR 1.25 (0.83-1.09); PROTHROMBIN TIME (PATIENT) 14.3 SEC (9.7-13.0)
[2023-09-25 11:59] LABS: ACTIVATED PTT 33.7 SECONDS (25.2-36.5)
[2023-09-25 12:11] LABS: POTASSIUM 4.5 mmol/L (3.5-5.1)
[2023-09-25 12:13] LABS: CALCIUM 8.9 mg/dL (8.5-10.1)
[2023-09-25 12:14] LABS: ALBUMIN 4.2 g/dl (3.4-5.0); BLOOD UREA NITROGEN 7.8 mg/dL (7-18)
[2023-09-25 12:16] LABS: CREATININE 0.8 mg/dL (0.55-1.3)
[2023-09-25 12:17] LABS: BILIRUBIN,TOTAL 0.6 mg/dL (0.2-1)
[2023-09-25 12:51] LABS: ANISOCYTOSIS 2+; MACROCYTOSIS 0; OVALOCYTE 1+
[2023-09-25 14:30] VITALS: BP 122/78; PULSE 82; RESP 19; TEMP 98
[2023-09-25 15:02] LABS: BASO % 0.9 % (0-2.0); EOS % 0.3 % (0-4.5); HEMATOCRIT 32.6 % (32.4-45.2); HEMOGLOBIN 10.8 GM/dL (10.7-15.3); LYMPH % 19.3 % (8-40); MCH 25.9 pg (25.7-33.7); MEAN CELL VOLUME 78.4 fl (80-96); MEAN PLT VOLUME 7.8 fl (7.5-11.1); MONO % 7.9 % (3.8-10.2); NEUT % 71.6 % (42.8-82.8); PLATELET COUNT 346 10^3/uL (134-434); RBC 4.16 M/mm3 (3.60-5.2); RDW 23.4 % (11.6-15.6); WHITE BLOOD COUNT 6.5 K/mm3 (4.0-10.0)
== END 2023-09-25 16:35 | disposition home or self-care (01) ==
LOC: JER 09:32
DX: N93.9 Abnormal uterine and vaginal bleeding, unspecified (principal)
CPT/HCPCS: 36415; 80053; 84484; 85025; 85610; 85730; 86850; 86900; 86901; 93005; 93010; 93970-TC; 99285-25

== ENCOUNTER 2023-09-29 17:15 | Emergency (ER) | payer OTHER ==
[2023-09-29 17:25] VITALS: BP 115/77; RESP 18; TEMP 98.4; BMI 26.1
[2023-09-29 18:44] LABS: BASO % 1.1 % (0-2.0); EOS % 0.3 % (0-4.5); HEMATOCRIT 30.9 % (32.4-45.2); HEMOGLOBIN 10.2 GM/dL (10.7-15.3); LYMPH % 21.8 % (8-40); MCH 25.7 pg (25.7-33.7); MCHC 32.9 g/dl (32.0-36.0); MEAN CELL VOLUME 78.2 fl (80-96); MEAN PLT VOLUME 7.9 fl (7.5-11.1); MONO % 7.4 % (3.8-10.2); NEUT % 69.4 % (42.8-82.8); PLATELET COUNT 372 10^3/uL (134-434); RBC 3.95 M/mm3 (3.60-5.2); RDW 23.2 % (11.6-15.6); WHITE BLOOD COUNT 6.5 K/mm3 (4.0-10.0)
[2023-09-29 18:47] LABS: INR 1.28 (0.83-1.09); PROTHROMBIN TIME (PATIENT) 14.6 SEC (9.7-13.0)
[2023-09-29 18:50] LABS: ACTIVATED PTT 30.7 SECONDS (25.2-36.5)
[2023-09-29 18:59] LABS: POTASSIUM 3.5 mmol/L (3.5-5.1)
[2023-09-29 19:01] LABS: ALBUMIN 4.1 g/dl (3.4-5.0); CALCIUM 8.3 mg/dL (8.5-10.1)
[2023-09-29 19:02] LABS: BLOOD UREA NITROGEN 6.2 mg/dL (7-18)
[2023-09-29 19:04] LABS: CREATININE 0.9 mg/dL (0.55-1.3)
[2023-09-29 19:06] LABS: BILIRUBIN,TOTAL 0.3 mg/dL (0.2-1); TOT PROT 7.7 g/dl (6.4-8.2)
[2023-09-29 19:28] LABS: ANISOCYTOSIS 3+; MACROCYTOSIS 1+; OVALOCYTE 1+
[2023-09-29 19:33] VITALS: PULSE 91
[2023-09-29] MEDS: ACETAMINOPHEN 1000 MG/100 ML BAG IVPB ONE (19:40)
[2023-09-29] MEDS ORDERED: ACETAMINOPHEN 325 MG TABLET (FP) ONE (19:46)
[2023-09-29] MEDS: ACETAMINOPHEN 500 MG TABLET (FP) PO ONE (20:01)
== END 2023-09-29 20:04 | disposition home or self-care (01) ==
LOC: JER 17:15
DX: R07.81 Pleurodynia (principal); R00.0 Tachycardia, unspecified; Z20.822 Contact with and (suspected) exposure to COVID-19
CPT/HCPCS: 0241U-QW; 36415; 71045-TC-FY; 71275-TC; 80053; 84484; 84703; 85025; 85610; 85730; 86850; 86900; 86901; 93005; 93010; 99285-25; Q9967

== ENCOUNTER 2023-10-01 08:23 | Day surgery (SDC) | payer OTHER ==
[2023-09-27 15:59] VITALS: BMI 25.8
[2023-10-01] MEDS ORDERED: MIDAZOLAM HCL 2 MG/2 ML SINGLE DOSE VIAL ONE (12:45)
[2023-10-01] MEDS ORDERED: FENTANYL CITRATE/PF 50 MCG/ML VIAL ONE (12:45)
[2023-10-01] MEDS: MIDAZOLAM HCL 2 MG/2 ML SINGLE DOSE VIAL IVPUSH ONE (12:58)
[2023-10-01] MEDS: FENTANYL CITRATE/PF 50 MCG/ML VIAL IVPUSH ONE (12:58)
[2023-10-01] MEDS: SODIUM CHLORIDE 500 ML IV SCH (14:01)
[2023-10-01 15:33] VITALS: RESP 20; TEMP 98.8
[2023-10-01 15:36] VITALS: BP 112/61; PULSE 89
== END 2023-10-01 15:35 | disposition home or self-care (01) ==
LOC: JRADIR 08:23
PROVIDERS: ATTEND Internal Medicine Hematology & Oncology
PROC: 06H03DZ Insertion of Intraluminal Device into Inferior Vena Cava, Percutaneous Approach (ICD-10-PCS; principal; 2023-10-01)
DX: Z95.828 Presence of other vascular implants and grafts (principal)
CPT/HCPCS: 37191; C1880

== ENCOUNTER 2023-10-01 18:35 | Emergency (ER) | payer OTHER ==
[2023-10-01 18:43] VITALS: BMI 25.4
[2023-10-01] MEDS ORDERED: ACETAMINOPHEN INJECTION 100 ML IVPB ONE (20:49)
[2023-10-01] MEDS: ACETAMINOPHEN 1000 MG/100 ML BAG IVPB ONE (20:52)
[2023-10-01 21:05] LABS: BASO % 0.9 % (0-2.0); EOS % 0.8 % (0-4.5); HEMATOCRIT 30.1 % (32.4-45.2); HEMOGLOBIN 9.8 GM/dL (10.7-15.3); LYMPH % 23.9 % (8-40); MCH 25.5 pg (25.7-33.7); MCHC 32.5 g/dl (32.0-36.0); MEAN CELL VOLUME 78.3 fl (80-96); MEAN PLT VOLUME 7.9 fl (7.5-11.1); MONO % 8.9 % (3.8-10.2); NEUT % 65.5 % (42.8-82.8); PLATELET COUNT 360 10^3/uL (134-434); RBC 3.84 M/mm3 (3.60-5.2); RDW 23.8 % (11.6-15.6); WHITE BLOOD COUNT 6.5 K/mm3 (4.0-10.0)
[2023-10-01 21:13] LABS: INR 1.12 (0.83-1.09); PROTHROMBIN TIME (PATIENT) 12.8 SEC (9.7-13.0)
[2023-10-01 21:16] LABS: ACTIVATED PTT 31.2 SECONDS (25.2-36.5)
[2023-10-01 21:17] LABS: POTASSIUM 3.9 mmol/L (3.5-5.1)
[2023-10-01 21:19] LABS: ALBUMIN 4.1 g/dl (3.4-5.0); BLOOD UREA NITROGEN 4.3 mg/dL (7-18); CALCIUM 8.5 mg/dL (8.5-10.1)
[2023-10-01] MEDS ORDERED: LIDOCAINE 5% TOPICAL PATCH ONE (21:21)
[2023-10-01 21:22] LABS: CREATININE 0.8 mg/dL (0.55-1.3)
[2023-10-01 21:24] LABS: BILIRUBIN,TOTAL 0.3 mg/dL (0.2-1); TOT PROT 7.2 g/dl (6.4-8.2)
[2023-10-01] MEDS: LIDOCAINE 5% TOPICAL PATCH TP ONE (21:24)
[2023-10-01] MEDS: LIDOCAINE PATCH REMOVAL MC SCH (22:07)
[2023-10-01 22:59] LABS: EPI CELLS 22 /uL (0-25.1); HYALINE CASTS 0 /uL (0-3.1); URINE APPEARANCE CLEAR; URINE BACTERIA 86 /uL (0-1359); URINE BILIRUBIN NEGATIVE (NEGATIVE); URINE COLOR YELLOW; URINE GLUCOSE (UA) NEGATIVE (NEGATIVE); URINE KETONE 2+ (NEGATIVE); URINE LEUK ESTERASE NEGATIVE (NEGATIVE); URINE NITRITE NEGATIVE (NEGATIVE); URINE PROTEIN TRACE (NEGATIVE); URINE RBC 2131 /uL (0-23.9); URINE UROBILINOGEN 0.2 mg/dL (0.2-1.0); URINE WBC 8 /uL (0-25.8)
[2023-10-02] MEDS ORDERED: METHOCARBAMOL 500 MG TABLET ONE (00:02)
[2023-10-02] MEDS ORDERED: oxyCODONE HCL 5 MG TABLET ONE (00:02)
[2023-10-02 00:09] VITALS: BP 112/79; PULSE 88; RESP 17; TEMP 98.1
[2023-10-02] MEDS: METHOCARBAMOL 500 MG TABLET PO ONE (00:09)
[2023-10-02] MEDS: oxyCODONE HCL 5 MG TABLET PO ONE (00:09)
== END 2023-10-02 01:28 | disposition home or self-care (01) ==
LOC: JER 18:35
PROC: 3E033NZ Introduction of Analgesics, Hypnotics, Sedatives into Peripheral Vein, Percutaneous Approach (ICD-10-PCS; principal; 2023-10-01)
DX: M79.604 Pain in right leg (principal); M54.50 Low back pain, unspecified
CPT/HCPCS: 36415; 72131-TC; 80053; 81003; 84703; 85025; 85610; 85651; 85730; 86140; 86850; 86900; 86901; 87086; 93005; 93010; 99285-25; J0131

== ENCOUNTER 2023-10-03 13:20 | Emergency (ER) | payer OTHER ==
[2023-10-03 13:37] VITALS: BP 108/61; PULSE 113; RESP 18; TEMP 99.1; BMI 26.1
[2023-10-03] MEDS ORDERED: ACETAMINOPHEN INJECTION 100 ML IVPB ONE (14:59)
[2023-10-03] MEDS ORDERED: LIDOCAINE 5% TOPICAL PATCH ONE (14:59)
[2023-10-03] MEDS: ACETAMINOPHEN 1000 MG/100 ML BAG IVPB ONE (15:30)
[2023-10-03] MEDS: LIDOCAINE 5% TOPICAL PATCH TP ONE (15:31)
[2023-10-03] MEDS ORDERED: oxyCODONE HCL 5 MG TABLET ONE (15:36)
[2023-10-03] MEDS: oxyCODONE HCL 5 MG TABLET PO ONE (15:38)
[2023-10-03 15:39] LABS: BASO % 0.8 % (0-2.0); EOS % 0.1 % (0-4.5); HEMATOCRIT 33.2 % (32.4-45.2); HEMOGLOBIN 10.6 GM/dL (10.7-15.3); LYMPH % 4.6 % (8-40); MCH 25.1 pg (25.7-33.7); MCHC 31.9 g/dl (32.0-36.0); MEAN CELL VOLUME 78.6 fl (80-96); MEAN PLT VOLUME 8.1 fl (7.5-11.1); MONO % 9.9 % (3.8-10.2); NEUT % 84.6 % (42.8-82.8); PLATELET COUNT 349 10^3/uL (134-434); RBC 4.22 M/mm3 (3.60-5.2); RDW 23.7 % (11.6-15.6); WHITE BLOOD COUNT 4.9 K/mm3 (4.0-10.0)
[2023-10-03 15:43] LABS: INR 1.17 (0.83-1.09); PROTHROMBIN TIME (PATIENT) 13.4 SEC (9.7-13.0)
[2023-10-03 15:46] LABS: ACTIVATED PTT 31.2 SECONDS (25.2-36.5)
[2023-10-03 15:56] LABS: POTASSIUM 4.2 mmol/L (3.5-5.1)
[2023-10-03 15:57] LABS: CALCIUM 8.9 mg/dL (8.5-10.1)
[2023-10-03 15:59] LABS: ALBUMIN 4.1 g/dl (3.4-5.0)
[2023-10-03 16:01] LABS: CREATININE 0.8 mg/dL (0.55-1.3)
[2023-10-03 16:03] LABS: BILIRUBIN,TOTAL 0.5 mg/dL (0.2-1); TOT PROT 7.7 g/dl (6.4-8.2)
[2023-10-03 18:16] LABS: ANISOCYTOSIS 3+; MACROCYTOSIS 1+
[2023-10-03 18:17] LABS: OVALOCYTE 1+
[2023-10-03] MEDS ORDERED: LIDOCAINE PATCH REMOVAL MC ONE (22:00)
== END 2023-10-03 18:33 | disposition home or self-care (01) ==
LOC: JER 13:20
PROC: 3E033NZ Introduction of Analgesics, Hypnotics, Sedatives into Peripheral Vein, Percutaneous Approach (ICD-10-PCS; principal; 2023-10-03)
DX: S39.012A Strain of muscle, fascia and tendon of lower back, initial encounter (principal); M54.31 Sciatica, right side; N93.9 Abnormal uterine and vaginal bleeding, unspecified; R10.9 Unspecified abdominal pain; X58.XXXA Exposure to other specified factors, initial encounter
CPT/HCPCS: 36415; 74177-TC; 80053; 84703; 85025; 85610; 85730; 86850; 86900; 86901; 99285-25; J0131; Q9967

== ENCOUNTER 2023-10-19 22:33 | Emergency (ER) | payer OTHER ==
[2023-10-19 22:41] VITALS: TEMP 98; BMI 23.9
[2023-10-19 23:55] VITALS: BP 104/61; PULSE 70; RESP 16
[2023-10-20] MEDS ORDERED: ACETAMINOPHEN 325 MG TABLET (FP) ONE (00:55)
[2023-10-20] MEDS ORDERED: LIDOCAINE 4% PATCH TP ONE (00:56)
[2023-10-20] MEDS: ACETAMINOPHEN 325 MG TABLET (FP) PO ONE (01:02)
[2023-10-20] MEDS: LIDOCAINE 4% PATCH TP ONE (01:02)
[2023-10-20] MEDS ORDERED: MAG HYDROX/AL HYDROX/SIMETH 30 ML UNIT-DOSE CUP ONE (01:48)
[2023-10-20] MEDS: MAG HYDROX/AL HYDROX/SIMETH 30 ML UNIT-DOSE CUP PO ONE (01:50)
[2023-10-20] MEDS ORDERED: LIDOCAINE PATCH REMOVAL MC SCH (22:00)
== END 2023-10-20 02:00 | disposition home or self-care (01) ==
LOC: JER 22:33
DX: R07.89 Other chest pain (principal); K59.00 Constipation, unspecified; M62.830 Muscle spasm of back; M54.9 Dorsalgia, unspecified; R10.13 Epigastric pain; R29.898 Other symptoms and signs involving the musculoskeletal system
CPT/HCPCS: 93005; 93010; 99283-25

== ENCOUNTER 2023-10-24 23:15 | Inpatient (IN) | payer OTHER ==
[2023-10-25 00:25] LABS: EOS % 1.6 % (0-4.5); HEMATOCRIT 23.1 % (32.4-45.2); HEMOGLOBIN 7.4 GM/dL (10.7-15.3); LYMPH % 15.6 % (8-40); MEAN PLT VOLUME 7.5 fl (7.5-11.1); MONO % 10.3 % (3.8-10.2); NEUT % 71.5 % (42.8-82.8); PLATELET COUNT 401 10^3/uL (134-434); RBC 3.09 M/mm3 (3.60-5.2); RDW 21.6 % (11.6-15.6); WHITE BLOOD COUNT 6.3 K/mm3 (4.0-10.0)
[2023-10-25 00:56] LABS: POTASSIUM 3.8 mmol/L (3.5-5.1)
[2023-10-25 00:58] LABS: CALCIUM 7.9 mg/dL (8.5-10.1)
[2023-10-25 00:59] LABS: ALBUMIN 3.4 g/dl (3.4-5.0); BLOOD UREA NITROGEN 7.8 mg/dL (7-18); MAGNESIUM 2.1 mg/dL (1.8-2.4)
[2023-10-25 01:02] LABS: CREATININE 0.8 mg/dL (0.55-1.3)
[2023-10-25 01:03] LABS: BILIRUBIN,TOTAL 0.2 mg/dL (0.2-1); TOT PROT 6.8 g/dl (6.4-8.2)
[2023-10-25 01:07] LABS: N-TERMINAL BNP 51.1 pg/ml (5-125)
[2023-10-25 01:13] LABS: INR 0.99 (0.83-1.09); PROTHROMBIN TIME (PATIENT) 11.4 SEC (9.7-13.0)
[2023-10-25] MEDS ORDERED: ACETAMINOPHEN INJECTION 100 ML IVPB ONE (02:08)
[2023-10-25] MEDS: ACETAMINOPHEN 1000 MG/100 ML BAG IVPB ONE (02:14)
[2023-10-25 03:08] LABS: ANISOCYTOSIS 3+; MACROCYTOSIS 0; TARGET CELLS 1+
[2023-10-25 11:44] LABS: HEMATOCRIT 25.5 % (32.4-45.2); HEMOGLOBIN 8.3 GM/dL (10.7-15.3); MCH 25.3 pg (25.7-33.7); MCHC 32.7 g/dl (32.0-36.0); MEAN CELL VOLUME 77.4 fl (80-96); MEAN PLT VOLUME 7.6 fl (7.5-11.1); PLATELET COUNT 350 10^3/uL (134-434); RBC 3.29 M/mm3 (3.60-5.2); RDW 21.6 % (11.6-15.6); WHITE BLOOD COUNT 5.2 K/mm3 (4.0-10.0)
[2023-10-25] MEDS ORDERED: APIXABAN 5 MG TABLET ONE ×2 (11:56→12:30)
[2023-10-25] MEDS: APIXABAN 5 MG TABLET PO SCH (12:32)
[2023-10-25 15:47] VITALS: BMI 24.3
[2023-10-25] MEDS: ACETAMINOPHEN 325 MG TABLET (FP) PO PRN (17:44)
[2023-10-26 07:50] LABS: BASO % 1.3 % (0-2.0); EOS % 1.9 % (0-4.5); HEMATOCRIT 26.7 % (32.4-45.2); LYMPH % 25.4 % (8-40); MCHC 33.6 g/dl (32.0-36.0); MEAN CELL VOLUME 77.3 fl (80-96); MONO % 10.2 % (3.8-10.2); NEUT % 61.2 % (42.8-82.8); PLATELET COUNT 362 10^3/uL (134-434); RBC 3.45 M/mm3 (3.60-5.2); RDW 21.7 % (11.6-15.6); WHITE BLOOD COUNT 5.4 K/mm3 (4.0-10.0)
[2023-10-26 08:06] LABS: POTASSIUM 4.1 mmol/L (3.5-5.1)
[2023-10-26 08:14] LABS: PHOSPHOROUS 3.9 mg/dL (2.5-4.9)
[2023-10-26 08:15] LABS: ALBUMIN 3.6 g/dl (3.4-5.0); BLOOD UREA NITROGEN 6.1 mg/dL (7-18); CALCIUM 8.1 mg/dL (8.5-10.1)
[2023-10-26 08:16] LABS: BILIRUBIN,TOTAL 0.8 mg/dL (0.2-1); TOT PROT 6.9 g/dl (6.4-8.2)
[2023-10-26 08:18] LABS: CREATININE 0.8 mg/dL (0.55-1.3)
[2023-10-26] MEDS: APIXABAN 5 MG TABLET PO SCH (11:46)
[2023-10-26] MEDS: CYANOCOBALAMIN 1,000 MCG TABLET (FP) PO SCH (17:00)
[2023-10-26] MEDS: ASCORBIC ACID 500 MG TABLET (FP) PO SCH (17:00)
[2023-10-26] MEDS: FOLIC ACID 1 MG TABLET (FP) PO SCH (17:00)
[2023-10-26] MEDS: FERROUS SO4 325 MG TABLET (FP) PO SCH (17:00)
[2023-10-27 07:35] LABS: BASO % 1.2 % (0-2.0); EOS % 2.5 % (0-4.5); HEMATOCRIT 24.6 % (32.4-45.2); HEMOGLOBIN 7.9 GM/dL (10.7-15.3); LYMPH % 22.5 % (8-40); MCH 24.9 pg (25.7-33.7); MCHC 32.2 g/dl (32.0-36.0); MEAN CELL VOLUME 77.1 fl (80-96); MEAN PLT VOLUME 7.7 fl (7.5-11.1); MONO % 8.1 % (3.8-10.2); NEUT % 65.7 % (42.8-82.8); PLATELET COUNT 336 10^3/uL (134-434); RBC 3.18 M/mm3 (3.60-5.2); RDW 21.8 % (11.6-15.6); WHITE BLOOD COUNT 5.9 K/mm3 (4.0-10.0)
[2023-10-27 07:49] LABS: POTASSIUM 3.8 mmol/L (3.5-5.1)
[2023-10-27 07:58] LABS: CALCIUM 7.9 mg/dL (8.5-10.1)
[2023-10-27 07:59] LABS: BLOOD UREA NITROGEN 5.7 mg/dL (7-18)
[2023-10-27 08:02] LABS: CREATININE 0.7 mg/dL (0.55-1.3)
[2023-10-27] MEDS: IRON SUCROSE INJECTION 200 MG in SODIUM CHLORIDE 100 ML IVPB ONE (11:55)
[2023-10-28 08:37] LABS: POTASSIUM 3.9 mmol/L (3.5-5.1)
[2023-10-28 08:38] LABS: HEMATOCRIT 24.4 % (32.4-45.2); MCH 25.1 pg (25.7-33.7); MCHC 32.7 g/dl (32.0-36.0); MEAN CELL VOLUME 76.9 fl (80-96); PLATELET COUNT 327 10^3/uL (134-434); RBC 3.18 M/mm3 (3.60-5.2); RDW 22.4 % (11.6-15.6); WHITE BLOOD COUNT 5.5 K/mm3 (4.0-10.0)
[2023-10-28 08:42] LABS: CALCIUM 8.1 mg/dL (8.5-10.1)
[2023-10-28 08:46] LABS: CREATININE 0.7 mg/dL (0.55-1.3)
[2023-10-28] MEDS ORDERED: HEPARIN NA (PORCINE) 5,000 UNITS/ML 1ML VIAL IVPUSH PRN (10:01)
[2023-10-28] MEDS: IRON SUCROSE INJECTION 200 MG in SODIUM CHLORIDE 100 ML IVPB ONE (15:22)
[2023-10-28] MEDS: HEPARIN INFUSION - 25,000 UNITS/500 ML INFUS.BAG IVPB SCH (16:44)
[2023-10-29] MEDS: HEPARIN NA (PORCINE) 5,000 UNITS/ML 1ML VIAL IVPUSH PRN (00:14)
[2023-10-29 06:48] LABS: HEMATOCRIT 27.9 % (32.4-45.2); HEMOGLOBIN 9.2 GM/dL (10.7-15.3); MCHC 32.9 g/dl (32.0-36.0); MEAN PLT VOLUME 8.1 fl (7.5-11.1); PLATELET COUNT 316 10^3/uL (134-434); RBC 3.52 M/mm3 (3.60-5.2); RDW 22.1 % (11.6-15.6); WHITE BLOOD COUNT 6.3 K/mm3 (4.0-10.0)
[2023-10-29] MEDS ORDERED: HEPARIN NA (PORCINE) 5,000 UNITS/ML 1ML VIAL IVPUSH PRN ×2 (20:20)
[2023-10-29] MEDS: HEPARIN INFUSION - 25,000 UNITS/500 ML INFUS.BAG IVPB SCH (20:20)
[2023-10-29] MEDS ORDERED: ACETAMINOPHEN 325 MG TABLET (FP) PO PRN (20:20)
[2023-10-30] MEDS ORDERED: LIDOCAINE 1%/EPI 1:100000 (20 ML MULTI DOSE VIAL) ONE ×2 (07:46→10:30)
[2023-10-30 08:49] LABS: HEMATOCRIT 31.6 % (32.4-45.2); HEMOGLOBIN 10.5 GM/dL (10.7-15.3); MCH 26.3 pg (25.7-33.7); MCHC 33.2 g/dl (32.0-36.0); MEAN CELL VOLUME 79.3 fl (80-96); MEAN PLT VOLUME 7.7 fl (7.5-11.1); PLATELET COUNT 358 10^3/uL (134-434); RBC 3.99 M/mm3 (3.60-5.2); RDW 22.4 % (11.6-15.6); WHITE BLOOD COUNT 5.9 K/mm3 (4.0-10.0)
[2023-10-30 08:55] LABS: INR 0.97 (0.83-1.09); PROTHROMBIN TIME (PATIENT) 11.2 SEC (9.7-13.0)
[2023-10-30 08:58] LABS: ACTIVATED PTT 24.2 SECONDS (25.2-36.5)
[2023-10-30] MEDS ORDERED: ROCURONIUM BROMIDE 50 MG/5 ML SYRINGE ONE ×3 (09:39→10:48)
[2023-10-30] MEDS ORDERED: PROPOFOL 20 ML ONE (09:39)
[2023-10-30] MEDS ORDERED: MIDAZOLAM HCL 2 MG/2 ML SINGLE DOSE VIAL ONE (09:39)
[2023-10-30] MEDS ORDERED: ceFAZolin SODIUM 1 GM VIAL ONE (10:12)
[2023-10-30] MEDS: ceFAZolin SODIUM 1 GM VIAL IVPB ONE (10:15)
[2023-10-30] MEDS: LIDOCAINE 1%/EPI 1:100000 (20 ML MULTI DOSE VIAL) IJ ONE (10:20)
[2023-10-30] MEDS ORDERED: DEXAMETHASONE SOD PHOSPHATE 4 MG/1 ML VIAL ONE (10:20)
[2023-10-30] MEDS ORDERED: METOCLOPRAMIDE HCL INJECTION 10 MG/2 ML VIAL ONE (10:39)
[2023-10-30] MEDS ORDERED: SEVOFLURANE 250 ML BTL ONE (10:40)
[2023-10-30] MEDS ORDERED: ACETAMINOPHEN INJECTION 100 ML IVPB ONE (10:48)
[2023-10-30] MEDS ORDERED: SUGAMMADEX SODIUM 200 MG/2 ML VIAL ONE (10:51)
[2023-10-30 10:59] LABS: POTASSIUM 4.5 mmol/L (3.5-5.1)
[2023-10-30] MEDS ORDERED: HYDROmorphone HCl 2 MG/ML VIAL ONE (11:00)
[2023-10-30 11:02] LABS: ALBUMIN 3.9 g/dl (3.4-5.0); BLOOD UREA NITROGEN 3.3 mg/dL (7-18); CALCIUM 8.9 mg/dL (8.5-10.1)
[2023-10-30 11:05] LABS: CREATININE 0.9 mg/dL (0.55-1.3); MAGNESIUM 2.2 mg/dL (1.8-2.4)
[2023-10-30 11:06] LABS: TOT PROT 7.2 g/dl (6.4-8.2)
[2023-10-30 11:07] LABS: BILIRUBIN,TOTAL 0.6 mg/dL (0.2-1)
[2023-10-30 11:09] LABS: PHOSPHOROUS 3.2 mg/dL (2.5-4.9)
[2023-10-30] MEDS ORDERED: ONDANSETRON 4 MG/2 ML VIAL ONE (11:28)
[2023-10-30] MEDS ORDERED: oxyCODONE HCL 5 MG TABLET PO PRN ×2 (12:27)
[2023-10-30] MEDS ORDERED: ONDANSETRON 4 MG/2 ML VIAL IVPUSH PRN ×4 (12:27→13:00)
[2023-10-30] MEDS: LACTATED RINGERS SOLUTION 1,000 ML IV SCH ×2 (12:59→13:00)
[2023-10-30] MEDS ORDERED: HEPARIN NA (PORCINE) 5,000 UNITS/ML 1ML VIAL IVPUSH PRN ×4 (13:00)
[2023-10-30] MEDS ORDERED: HEPARIN INFUSION - 25,000 UNITS/500 ML INFUS.BAG IVPB SCH (13:00)
[2023-10-30] MEDS: SIMETHICONE 80 MG TAB.CHEW (FP) PO PRN (17:46)
[2023-10-30] MEDS: ACETAMINOPHEN 1000 MG/100 ML BAG IVPB SCH (17:46)
[2023-10-30] MEDS: CEFAZOLIN SODIUM 2 GM in DEXTROSE 5%-WATER 100 ML IVPB SCH (17:47)
[2023-10-30] MEDS: oxyCODONE HCL 5 MG TABLET PO PRN ×2 (18:56→20:13)
[2023-10-30] MEDS: DOCUSATE SODIUM 100 MG CAPSULE (FP) PO PRN (20:14)
[2023-10-31] MEDS: CEFAZOLIN SODIUM 2 GM in DEXTROSE 5%-WATER 100 ML IVPB SCH (01:17)
[2023-10-31] MEDS: MECLIZINE HCL 25 MG TABLET (FP) PO ONE (01:17)
[2023-10-31 09:15] LABS: HEMATOCRIT 32.7 % (32.4-45.2); HEMOGLOBIN 10.5 GM/dL (10.7-15.3); MCH 26.1 pg (25.7-33.7); MCHC 32.1 g/dl (32.0-36.0); MEAN CELL VOLUME 81.2 fl (80-96); MEAN PLT VOLUME 8.1 fl (7.5-11.1); PLATELET COUNT 270 10^3/uL (134-434); RBC 4.03 M/mm3 (3.60-5.2); RDW 22.9 % (11.6-15.6); WHITE BLOOD COUNT 8.9 K/mm3 (4.0-10.0)
[2023-10-31] MEDS: APIXABAN 5 MG TABLET PO SCH (10:08)
[2023-10-31] MEDS ORDERED: IBUPROFEN 600 MG TABLET (FP) PO PRN (12:47)
[2023-11-01] MEDS: ACETAMINOPHEN 325 MG TABLET (FP) PO PRN (00:41)
[2023-11-01 07:52] LABS: HEMOGLOBIN 8.4 GM/dL (10.7-15.3); MCH 26.3 pg (25.7-33.7); MCHC 32.2 g/dl (32.0-36.0); MEAN CELL VOLUME 81.6 fl (80-96); PLATELET COUNT 226 10^3/uL (134-434); RBC 3.19 M/mm3 (3.60-5.2); RDW 23.4 % (11.6-15.6)
[2023-11-01 08:15] LABS: POTASSIUM 3.7 mmol/L (3.5-5.1)
[2023-11-01 08:28] LABS: CALCIUM 8.1 mg/dL (8.5-10.1)
[2023-11-01 08:29] LABS: BLOOD UREA NITROGEN 5.1 mg/dL (7-18)
[2023-11-01 08:31] LABS: CREATININE 0.7 mg/dL (0.55-1.3)
[2023-11-01 08:33] LABS: BILIRUBIN,TOTAL 0.4 mg/dL (0.2-1); TOT PROT 5.6 g/dl (6.4-8.2)
[2023-11-01] MEDS: BISACODYL 5 MG TABLET.DR (FP) PO PRN (10:09)
[2023-11-01] MEDS: MULTIVITAMINS (DAILY MVI) TABLET (FP) PO SCH (12:36)
[2023-11-01] MEDS: FERROUS SO4 325 MG TABLET (FP) PO ONE ×2 (13:46→18:03)
[2023-11-01] MEDS: MECLIZINE HCL 12.5 MG TABLET PO ONE (18:03)
[2023-11-01] MEDS: IRON SUCROSE INJECTION 200 MG in SODIUM CHLORIDE 100 ML IVPB ONE (18:03)
[2023-11-01] MEDS: MECLIZINE HCL 25 MG TABLET (FP) PO ONE (18:12)
[2023-11-01] MEDS ORDERED: MECLIZINE HCL 12.5 MG TABLET PO SCH (22:00)
[2023-11-02 09:03] LABS: HEMATOCRIT 28.5 % (32.4-45.2); HEMOGLOBIN 9.3 GM/dL (10.7-15.3); MCH 26.7 pg (25.7-33.7); MCHC 32.8 g/dl (32.0-36.0); MEAN CELL VOLUME 81.6 fl (80-96); PLATELET COUNT 228 10^3/uL (134-434); RBC 3.49 M/mm3 (3.60-5.2); RDW 24.2 % (11.6-15.6); WHITE BLOOD COUNT 4.6 K/mm3 (4.0-10.0)
[2023-11-02] MEDS: IRON SUCROSE INJECTION 200 MG in SODIUM CHLORIDE 100 ML IVPB ONE (13:44)
[2023-11-02 15:58] VITALS: BP 109/63; PULSE 99; RESP 18; TEMP 98.1
== END 2023-11-02 17:00 | disposition home or self-care (01) | DRG 519 ==
LOC: JER 23:15 → JERBED 10-25 09:08 → J4W 10-25 14:38 → OBSVTOIN 10-28 13:29 → J8W 10-29 19:25
PROVIDERS: ADMIT Internal Medicine; ATTEND Nurse Practitioner Family
PROC: 30233N1 Transfusion of Nonautologous Red Blood Cells into Peripheral Vein, Percutaneous Approach (ICD-10-PCS; 2023-10-28)
PROC: 8E0W4CZ Robotic Assisted Procedure of Trunk Region, Percutaneous Endoscopic Approach (ICD-10-PCS; 2023-10-30)
PROC: 0UT74ZZ Resection of Bilateral Fallopian Tubes, Percutaneous Endoscopic Approach (ICD-10-PCS; principal; 2023-10-30 09:00)
PROC: 0UT94ZZ Resection of Uterus, Percutaneous Endoscopic Approach (ICD-10-PCS; 2023-10-30 09:00)
DX: D25.9 Leiomyoma of uterus, unspecified (principal); I26.99 Other pulmonary embolism without acute cor pulmonale; D62 Acute posthemorrhagic anemia; G43.909 Migraine, unspecified, not intractable, without status migrainosus; N92.1 Excessive and frequent menstruation with irregular cycle
CPT/HCPCS: 0241U-QW; 36415; 36430; 71045-TC-FY; 71275-TC; 80048; 80053; 80061; 82962; 83540; 83550; 83735; 83880; 84100; 84484; 84703; 85025; 85027; 85610; 85730; 86850; 86900; 86901; 86922; 88305-TC; 88341-TC; 93005; 93010; 93970-TC; 94760; 99285-25; G0378; J0131; J1644; J1756; P9038; P9058

== ENCOUNTER 2023-11-19 18:13 | Emergency (ER) | payer OTHER ==
[2023-11-19 18:22] VITALS: BP 111/71; RESP 18; TEMP 97.9; BMI 22.8
[2023-11-19 21:03] LABS: BASO % 0.8 % (0-2.0); EOS % 0.9 % (0-4.5); HEMATOCRIT 36.6 % (32.4-45.2); HEMOGLOBIN 12.1 GM/dL (10.7-15.3); LYMPH % 18.1 % (8-40); MCH 27.6 pg (25.7-33.7); MCHC 32.9 g/dl (32.0-36.0); MEAN CELL VOLUME 83.9 fl (80-96); MONO % 7.6 % (3.8-10.2); NEUT % 72.6 % (42.8-82.8); PLATELET COUNT 357 10^3/uL (134-434); RBC 4.37 M/mm3 (3.60-5.2); RDW 22.7 % (11.6-15.6); WHITE BLOOD COUNT 6.8 K/mm3 (4.0-10.0)
[2023-11-19 21:12] LABS: INR 1.09 (0.83-1.09); PROTHROMBIN TIME (PATIENT) 12.3 SEC (9.7-13.0)
[2023-11-19 21:23] VITALS: PULSE 90
[2023-11-19] MEDS ORDERED: ACETAMINOPHEN INJECTION 100 ML IVPB ONE (21:42)
[2023-11-19] MEDS ORDERED: MORPHINE SULFATE 2 MG/ML SYRINGE ONE ×2 (21:42→23:26)
[2023-11-19] MEDS: morphine CARPU-JECT 2 MG/1 ML DISP.SYRIN IVPUSH ONE ×2 (21:47→23:25)
[2023-11-19] MEDS: ACETAMINOPHEN 1000 MG/100 ML BAG IVPB ONE (21:48)
[2023-11-19 21:49] LABS: POTASSIUM 4.5 mmol/L (3.5-5.1)
[2023-11-19 21:52] LABS: CALCIUM 8.6 mg/dL (8.5-10.1)
[2023-11-19 21:53] LABS: ALBUMIN 3.8 g/dl (3.4-5.0); BLOOD UREA NITROGEN 5.6 mg/dL (7-18)
[2023-11-19 21:56] LABS: CREATININE 0.7 mg/dL (0.55-1.3)
[2023-11-19 21:58] LABS: BILIRUBIN,TOTAL 0.3 mg/dL (0.2-1)
[2023-11-19 22:09] LABS: TOT PROT 7.8 g/dl (6.4-8.2)
[2023-11-19 22:22] LABS: ANISOCYTOSIS 1+; MACROCYTOSIS 0; OVALOCYTE 1+; PLATELET ESTIMATE NORMAL
== END 2023-11-19 23:43 | disposition home or self-care (01) ==
LOC: JER 18:13
PROC: 3E033NZ Introduction of Analgesics, Hypnotics, Sedatives into Peripheral Vein, Percutaneous Approach (ICD-10-PCS; principal; 2023-11-19)
PROC: 3E033NZ Introduction of Analgesics, Hypnotics, Sedatives into Peripheral Vein, Percutaneous Approach (ICD-10-PCS; 2023-11-19)
PROC: 3E033NZ Introduction of Analgesics, Hypnotics, Sedatives into Peripheral Vein, Percutaneous Approach (ICD-10-PCS; 2023-11-19)
DX: R07.89 Other chest pain (principal); K64.9 Unspecified hemorrhoids
CPT/HCPCS: 36415; 71046-TC-FY; 80053; 82272; 84484; 84703; 85025; 85610; 86850; 86900; 86901; 93005; 93010; 96374; 96376; 99285-25; J0131

== ENCOUNTER 2023-12-12 04:58 | Day surgery (SDC) | payer OTHER ==
[2023-12-09 15:22] VITALS: BMI 24.3
[2023-12-12] MEDS ORDERED: MIDAZOLAM HCL 2 MG/2 ML SINGLE DOSE VIAL ONE (11:19)
[2023-12-12] MEDS ORDERED: FENTANYL CITRATE/PF 50 MCG/ML VIAL ONE ×2 (11:19→11:42)
[2023-12-12] MEDS: FENTANYL CITRATE/PF 50 MCG/ML VIAL IVPUSH ONE ×2 (11:30→11:43)
[2023-12-12] MEDS: MIDAZOLAM HCL 2 MG/2 ML SINGLE DOSE VIAL IVPUSH ONE ×2 (11:30→11:42)
[2023-12-12 13:03] VITALS: RESP 16
[2023-12-12 14:51] VITALS: BP 106/62; PULSE 90; TEMP 98.6
== END 2023-12-12 15:09 | disposition home or self-care (01) ==
LOC: JRADIR 04:58
PROVIDERS: ATTEND Internal Medicine Hematology & Oncology
PROC: 06PY3DZ Removal of Intraluminal Device from Lower Vein, Percutaneous Approach (ICD-10-PCS; principal; 2023-12-12)
DX: Z86.718 Personal history of other venous thrombosis and embolism (principal)
CPT/HCPCS: 37193; 81025

== ENCOUNTER 2024-01-10 12:07 | Emergency (ER) | payer OTHER ==
[2024-01-10 12:21] VITALS: BMI 25.7
[2024-01-10 14:22] LABS: INR 1.16 (0.83-1.09)
[2024-01-10 14:25] LABS: ACTIVATED PTT 37.6 SECONDS (25.2-36.5); BASO % 0.9 % (0-2.0); EOS % 0.6 % (0-4.5); HEMATOCRIT 41.6 % (32.4-45.2); HEMOGLOBIN 13.7 GM/dL (10.7-15.3); LYMPH % 15.8 % (8-40); MCH 27.6 pg (25.7-33.7); MCHC 32.9 g/dl (32.0-36.0); MEAN PLT VOLUME 7.8 fl (7.5-11.1); MONO % 8.2 % (3.8-10.2); NEUT % 74.5 % (42.8-82.8); PLATELET COUNT 290 10^3/uL (134-434); RBC 4.95 M/mm3 (3.60-5.2); RDW 19.8 % (11.6-15.6); WHITE BLOOD COUNT 5.8 K/mm3 (4.0-10.0)
[2024-01-10 14:44] LABS: POTASSIUM 4.6 mmol/L (3.5-5.1)
[2024-01-10 14:46] LABS: CALCIUM 9.7 mg/dL (8.5-10.1)
[2024-01-10 14:47] LABS: ALBUMIN 4.2 g/dl (3.4-5.0); BLOOD UREA NITROGEN 9.8 mg/dL (7-18)
[2024-01-10 14:50] LABS: CREATININE 0.8 mg/dL (0.55-1.3)
[2024-01-10 14:51] LABS: BILIRUBIN,TOTAL 0.5 mg/dL (0.2-1); TOT PROT 7.9 g/dl (6.4-8.2)
[2024-01-10 15:41] LABS: HIV INTERPRETATION NEGATIVE (NEGATIVE)
[2024-01-10] MEDS ORDERED: ACETAMINOPHEN INJECTION 100 ML ONE (16:02)
[2024-01-10] MEDS: ACETAMINOPHEN 1000 MG/100 ML BAG IVPB ONE (16:08)
[2024-01-10] MEDS ORDERED: LIDOCAINE 4% PATCH TP ONE ×2 (16:24→16:31)
[2024-01-10] MEDS: LIDOCAINE 4% PATCH TP ONE (16:34)
[2024-01-10 19:17] VITALS: BP 110/78; PULSE 72; RESP 19; TEMP 97.9
[2024-01-10] MEDS ORDERED: LIDOCAINE PATCH REMOVAL MC SCH (22:00)
== END 2024-01-10 19:13 | disposition home or self-care (01) ==
LOC: JER 12:07
PROC: 3E033NZ Introduction of Analgesics, Hypnotics, Sedatives into Peripheral Vein, Percutaneous Approach (ICD-10-PCS; principal; 2024-01-10)
DX: R07.81 Pleurodynia (principal); R06.02 Shortness of breath; M79.662 Pain in left lower leg; R42 Dizziness and giddiness
CPT/HCPCS: 36415; 71046-TC-FY; 71275-TC; 80053; 83880; 84484; 84703; 85025; 85610; 85730; 86803; 86850; 86900; 86901; 87389; 93005; 93010; 93971-TC; 99285-25; J0131; Q9967

== ENCOUNTER 2024-02-19 15:23 | Emergency (ER) | payer OTHER ==
[2024-02-19 15:33] VITALS: BP 114/79; PULSE 66; RESP 18; TEMP 98.1; BMI 24.1
[2024-02-19] MEDS ORDERED: MECLIZINE HCL 25 MG TABLET (FP) ONE (17:16)
[2024-02-19] MEDS ORDERED: ACETAMINOPHEN 325 MG TABLET (FP) ONE (17:16)
[2024-02-19] MEDS ORDERED: IBUPROFEN 400 MG TABLET (FP) PO ONE (17:16)
[2024-02-19] MEDS: ACETAMINOPHEN 500 MG TABLET (FP) PO ONE (17:56)
[2024-02-19] MEDS: MECLIZINE HCL 25 MG TABLET (FP) PO ONE (17:58)
[2024-02-19] MEDS: IBUPROFEN 400 MG TABLET (FP) PO ONE (17:59)
== END 2024-02-19 19:05 | disposition home or self-care (01) ==
LOC: JER 15:23
DX: M79.661 Pain in right lower leg (principal); M79.662 Pain in left lower leg
CPT/HCPCS: 93970-TC; 99284-25

== ENCOUNTER 2024-06-13 10:21 | Emergency (ER) | payer OTHER ==
[2024-06-13 10:34] VITALS: BP 133/52; PULSE 83; RESP 18; TEMP 97; BMI 27.3
[2024-06-13 11:30] LABS: THROAT:GRP A STREP NOT DETECTED (NOTDETECTED)
[2024-06-13] MEDS ORDERED: ACETAMINOPHEN 500 MG TABLET (FP) ONE (12:05)
[2024-06-13] MEDS: ACETAMINOPHEN 500 MG TABLET (FP) PO ONE (12:06)
[2024-06-13 12:19] LABS: BASO % 1.3 % (0-2.0); HEMATOCRIT 43.4 % (32.4-45.2); HEMOGLOBIN 14.5 GM/dL (10.7-15.3); LYMPH % 17.3 % (8-40); MCHC 33.4 g/dl (32.0-36.0); MEAN CELL VOLUME 90.1 fl (80-96); MEAN PLT VOLUME 8.1 fl (7.5-11.1); MONO % 11.9 % (3.8-10.2); NEUT % 65.5 % (42.8-82.8); PLATELET COUNT 254 10^3/uL (134-434); RBC 4.82 M/mm3 (3.60-5.2); WHITE BLOOD COUNT 4.9 K/mm3 (4.0-10.0)
[2024-06-13 12:43] LABS: POTASSIUM 4.5 mmol/L (3.5-5.1)
[2024-06-13 12:45] LABS: BLOOD UREA NITROGEN 4.9 mg/dL (7-18)
[2024-06-13 12:47] LABS: CALCIUM 8.7 mg/dL (8.5-10.1)
[2024-06-13 12:49] LABS: CREATININE 0.6 mg/dL (0.55-1.3)
[2024-06-13 12:50] LABS: BILIRUBIN,TOTAL 0.4 mg/dL (0.2-1); TOT PROT 7.7 g/dl (6.4-8.2)
[2024-06-13 12:54] LABS: N-TERMINAL BNP 27.3 pg/ml (5-125)
== END 2024-06-13 17:47 | disposition home or self-care (01) ==
LOC: JER 10:21 → JERFT 10:21
DX: R05.9 Cough, unspecified (principal); R19.7 Diarrhea, unspecified; M79.10 Myalgia, unspecified site; B97.4 Respiratory syncytial virus as the cause of diseases classified elsewhere; Z20.822 Contact with and (suspected) exposure to COVID-19
CPT/HCPCS: 0241U-QW; 36415; 71275-TC; 80053; 83880; 84484; 85025; 87651; 93005; 93010; 99285-25